=== PATIENT | female | born 1970 | race Caucasian/White ===

== ENCOUNTER 2023-12-28 14:06 | Outpatient (POV) | payer MEDICAID, SELFPAY ==
--- NOTE | 2023-12-28 14:36 | EXP.PAIN.OV ---
HPI Data of Consult Patient: new to practice Consult date: 12/28/23 Requesting Physician: Kerri Gibson APRN Primary Care Provider: Luis Enrique Harman Consult Narrative Reason for consult: Chiari malformation history, facial pain, arm pain History of present illness: Ms. Low is a 53 year old female who presents today as a new patient. She is a referral from Luis Enrique Harman's office. Today she rates her pain a 10 out of 10. Patient does state that she had Chiari malformation and did end up having to have surgery back in 2016. She states that she has continued to have issues since including facial pain with numbness and numbness into her left arm primarily. She does state that she does also have pain into the right side as well that it is not as severe. Patient describes this as a constant sensation that interferes with her ability perform activities of daily living. Patient does state that it has significantly affected her balance and she now deals with vertigo. Patient does state that she has difficulty even holding her head up due to the severe pain. She states nothing seems to make it better and that the only time she feels some improvement is when she is able to lay her head down when she sleeps. Patient does state in the past that she was going to pain management where she was getting injections, some ablations and Botox and that this was helping. Patient states that she ended up missing too many visits and was discharged from this clinic. She states that she then went to the pain management there in [place] however he was only doing the Botox and that she ended up losing range of motion for several months and that it was hard to get into see that provider. Patient states that she is not interested in going back there. Patient does have a drug abuse history and is in a methadone clinic. Patient is taking Flexeril and gabapentin and states that it does okay. Patient is currently prescribed gabapentin 800 mg 4 times a day from an outside provider. Her Ghanshyam has been reviewed and is appropriate. CC: Kerri Gibson APRN [facility] Disclaimer: The information contained in this section may have been updated after the patient was seen, as this information can be updated by other users. Social History Smoking Status: Unknown if ever smoked alcohol intake: never current occupational status: other Travel in the last 8 weeks: None Review of Systems Review of Systems Review of systems:: pertinent systems reviewed and negative unless documented below Review of systems (narrative): Review of Systems: General: No recent weight changes, no fever, no sleep disturbances Respiratory: No cough, no shortness of air, no recurring pulmonary infections Cardiovascular/peripheral vascular: No chest pain, no palpitations, no edema, no shortness of breath Gastrointestinal: No new onset incontinence, normal bowel movements reported Genitourinary: No new onset incontinence Musculoskeletal: Facial pain/numbness, bilateral arm pain Psychiatric: [Normal mood/affect] Neurological: [Denies weakness in extremities], [denies balance issues] Meds Home Medications and Allergies New Prescriptions to Start Prescriptions: Allergies Allergy/AdvReac Type Severity Reaction Status Date / Time Nitrofurantoin Allergy Intermediate I-HIVES Uncoded 05/02/17 14:58 Objective Narrative: Physical Exam: General: Alert and oriented x3, no acute distress, pleasant and cooperative Lungs: Respirations even and unlabored, symmetrical chest expansion Eyes: PERRL Musculoskeletal: Flexion and extension of cervical [spine] somewhat guarded secondary to pain, [antalgic gait noted] Neurological: Speech clear, no gross sensory deficit Assessment and Plan *Assessment and plan (1) Chiari malformation: Status: Acute Category: Medical (2) Facial pain: Status: Acute Category: Medical Code(s): R51.9 - Headache, unspecified (3) Cervical radiculopathy: Status: Acute Category: Medical Code(s): M54.12 - Radiculopathy, cervical region Plan Patient is experiencing significant issues related to being born with Chiari malformation. Patient does have surgery with minimal changes. Patient did have limited range of motion of her cervical spine today. I did discuss with patient that I do believe that she would be a beneficial candidate of a spinal cord stimulator trial. Risk and benefits and educational handouts were given to the patient today and she would like to proceed forward with this plan of care. I will order the patient a psychological evaluation and if she is deemed an appropriate candidate we will proceed forward with the spinal cord stimulator trial at a later date. Patient has tried and failed conservative therapy including oral medications, heat and ice, topicals, prior physical therapy and continued at home stretching and exercise for longer than 6 weeks as well as injection therapy. Patient is on continuous O2 and cannot tolerate current physical therapy due to her comorbidities. Patient will be ordered a compounded cream and return to clinic in 1 month following her psychological evaluation. Patient has been instructed to contact the clinic with any concerns before the next appointment. Dr. Villanueva has reviewed this note and agrees with this plan of care. This note was dictated using voice recognition software and make contain errors or omissions. All injections are used with Lidocaine or Bupivacaine and Depo Medrol.
[2023-12-28 15:21] VITALS: BP 112/70; PULSE 80; RESP 18; O2SAT 98; BMI 25.7
== END 2023-12-28 23:59 | disposition home or self-care (01) ==
LOC: SC.PAIN 14:06
PROVIDERS: PCP Pediatrics; Visit Provider Nurse Practitioner Family
DX: R51.9 Headache, unspecified (principal); M54.12 Radiculopathy, cervical region; Q07.00 Arnold-Chiari syndrome without spina bifida or hydrocephalus; Z73.89 Other problems related to life management difficulty
CPT/HCPCS: 99202; G0463

== ENCOUNTER 2024-02-05 13:32 | Outpatient (POV) | payer MEDICAID, SELFPAY ==
[2024-02-05 13:48] VITALS: BP 118/77; PULSE 66; RESP 18; O2SAT 95; BMI 25.7
--- NOTE | 2024-02-05 14:01 | EXP.PAIN.SOA ---
[facility] Disclaimer: The information contained in this section may have been updated after the patient was seen, as this information can be updated by other users. Medical History (Updated 02/05/24 @ 14:05 by Kerri Gibson APRN) Spinal enthesopathy of cervical region Chiari malformation GERD (gastroesophageal reflux disease) COPD (chronic obstructive pulmonary disease) Pulmonary emphysema HTN (hypertension) Syringomyelia Spasmodic torticollis History of substance abuse Anxiety Depression HLD (hyperlipidemia) Surgical History (Updated 12/28/23 @ 15:38 by Maribeth Jara RN) H/O right knee surgery Hx of cholecystectomy Hx of colonoscopy Family History (Updated 12/28/23 @ 15:37 by Maribeth Jara RN) Other COPD (chronic obstructive pulmonary disease) Colon cancer Heart attack Hypertension Ovary cancer Social History (Updated 12/28/23 @ 15:39 by Maribeth Jara RN) Smoking Status: Current some day smoker alcohol intake: never current occupational status: unemployed Travel in the last 8 weeks: None PM Subjective & Objective Subjective Subjective:: Patient is a pleasant 53-year-old female who presents today for follow-up of psychological evaluation. Today she rates her pain a 7 out of 10. Patient denies any new trauma or injury. She states she continues to have the chronic issues from her neck into her upper extremities. Patient does have chronic pain related to Chiari malformation that did require surgery. Patient has tried and failed conservative treatment including continued at home stretching exercise for longer than 12 weeks. Patient does state today that she would like to proceed forward with the spinal cord stimulator trial. Patient is currently managed with Flexeril and gabapentin from an outside provider. Her Ghanshyam has been reviewed and is appropriate. Review of Systems: General: No recent weight changes, no fever, no sleep disturbances Respiratory: No cough, no shortness of air, no recurring pulmonary infections Cardiovascular/peripheral vascular: No chest pain, no palpitations, no edema, no shortness of breath Gastrointestinal: No new onset incontinence, normal bowel movements reported Genitourinary: No new onset incontinence Musculoskeletal: Neck pain, upper extremity pain Psychiatric: [Normal mood/affect] Neurological: [Denies weakness in extremities], [denies balance issues] Pain at rest (0-10 scale): 7 Objective Objective:: Physical Exam: General: Alert and oriented x3, no acute distress, pleasant and cooperative Lungs: Respirations even and unlabored, symmetrical chest expansion Eyes: PERRL Musculoskeletal: Flexion and extension of cervical [spine] somewhat guarded secondary to pain, [antalgic gait noted] Neurological: Speech clear, no gross sensory deficit Has patient had previous pain injection?: No Conservative treatment options previously tried: Home exercise plan Length of treatment: Longer than 12 weeks Meds Home Medications and Allergies Home Medications ?Medication ?Instructions ?Recorded ?Confirmed ?Type atorvastatin 20 mg tablet 20 mg PO HS Cholesterol 12/28/23 02/05/24 History cyclobenzaprine 10 mg tablet 10 mg PO TID Pain 12/28/23 02/05/24 History fluticasone propionate 110 2 puff inhalation BID Breathing 12/28/23 02/05/24 History mcg/actuation HFA aerosol inhaler Problems gabapentin 800 mg tablet 800 mg PO QID Pain 12/28/23 02/05/24 History hydrochlorothiazide 50 mg tablet 50 mg PO DAILY Fluid 12/28/23 02/05/24 History lansoprazole 30 mg capsule,delayed 30 mg PO DAILY . 12/28/23 02/05/24 History release loratadine 10 mg tablet 10 mg PO DAILY ALLERGIES 12/28/23 02/05/24 History methadone 5 mg tablet 5 mg PO DAILY 12/28/23 02/05/24 History sertraline 50 mg tablet 50 mg PO DAILY MOOD 12/28/23 02/05/24 History tiotropium 2.5 mcg-olodaterol 2.5 1 inh inhalation DIRECTED 12/28/23 02/05/24 History mcg/actuation mist for inhalation Breathing Problems (Stiolto Respimat) New Prescriptions to Start Prescriptions: Allergies Allergy/AdvReac Type Severity Reaction Status Date / Time Nitrofurantoin Allergy Intermediate I-HIVES Uncoded 05/02/17 14:58 Assessment and Plan *Assessment and plan (1) Cervical radiculopathy: Status: Acute Category: Medical Code(s): M54.12 - Radiculopathy, cervical region (2) Chiari malformation: Status: Acute Category: Medical (3) Degenerative disc disease, cervical: Status: Acute Category: Medical Code(s): M50.30 - Other cervical disc degeneration, unspecified cervical region Plan Patient was reviewed over her psychological evaluation findings and was deemed an appropriate candidate for the spinal cord stimulator. I did review over the risk and benefits of the trial and she would like to proceed forward with this plan of care. Patient has tried and failed conservative therapy including continued at home stretching exercises for longer than 12 weeks. Patient will be submitted for spinal cord stimulator trial. Patient is not on any blood thinners. Patient has had to have surgery related to her Chiari malformation in the past and still has chronic pain related to this. Patient has been instructed to contact the clinic with any concerns before the next appointment. Dr. Villanueva has reviewed this note and agrees with this plan of care. This note was dictated using voice recognition software and make contain errors or omissions. All injections are used with Lidocaine or Bupivacaine and Depo Medrol.
== END 2024-02-05 23:59 | disposition home or self-care (01) ==
LOC: SC.PAIN 13:34
PROVIDERS: PCP Pediatrics; Visit Provider Nurse Practitioner Family
DX: M50.10 Cervical disc disorder with radiculopathy, unspecified cervical region (principal); Q07.00 Arnold-Chiari syndrome without spina bifida or hydrocephalus
CPT/HCPCS: 99212; G0463

== ENCOUNTER 2024-04-19 12:08 | Outpatient (CLI) | payer MEDICAID, SELFPAY ==
--- NOTE | 2024-04-19 12:40 | ECG_ITS ---
APPROVED REPORT Exam: Resting ECG HR:61 bpm ECG Measurements Heart Rate 61 AXES MD 152 P 36 QRSd 104 QRS 91 QT 431 T 50 QTc 434 Conclusion SINUS RHYTHM BORDERLINE RIGHT AXIS DEVIATION [QRS AXIS > 90] BORDERLINE ECG UNCONFIRMED REPORT Electronically signed by : Zay Bang MD 04/19/2024 19:29:41
[2024-04-19 12:45] VITALS: BMI 24.3
[2024-04-19 13:04] LABS: Chloride 101 mmol/L (98-107); Potassium 3.1 mmoL/L (3.5-5.1); Sodium 140 mmol/L (136-145)
[2024-04-19 13:07] LABS: Anion Gap 7.1 mEq/L (5-15); Blood Urea Nitrogen 12 mg/dl (7-17); Calcium 9.4 mg/dl (8.4-10.2); Carbon Dioxide 35 mmol/L (22.0-30.0); Creatinine Clearance Estimated 84 mL/min (50-200); Estimated Glomerular Filt Rate 75 ml/min (>60); GFR (African American) 91 ML/MIN (>60); Glucose 78 mg/dl (74-100)
[2024-04-19 13:10] LABS: Basophils # 0.1 K/mm3 (0-0.2); Basophils % 1.4 % (0.1-2.0); Eosinophils # 0.1 K/mm3 (0.0-0.4); Eosinophils % 1.4 % (0.1-12.0); Hematocrit 42.9 % (37.0-47.0); Hemoglobin 13.8 g/dL (12.2-16.2); Lymphocytes # 1.9 K/mm3 (0.7-4.5); Lymphocytes % 35.7 % (10-50); Mean Corpuscular HGB Conc 32.2 g/dL (31.8-35.4); Mean Corpuscular Hemoglobin 27.9 pg (27.0-31.2); Mean Corpuscular Volume 86.6 fl (81-99); Mean Platelet Volume 9.2 fl (7.4-10.4); Monocytes # 0.3 K/mm3 (0.1-1.0); Monocytes % 5.9 % (1.7-9.3); Neutrophils # 2.9 K/mm3 (1.8-7.8); Neutrophils % 55.6 % (37.0-80.0); Platelet Count 149 K/mm3 (142-424); Red Blood Count 4.95 M/mm3 (4.20-5.40); Red Cell Distribution Width 15.9 % (11.5-17.5); White Blood Count 5.3 K/mm3 (4.8-10.8)
== END 2024-04-19 23:59 | disposition home or self-care (01) ==
LOC: PREOP 12:09
PROVIDERS: PCP Pediatrics; Visit Provider Anesthesiology
DX: R94.31 Abnormal electrocardiogram [ECG] [EKG] (principal)
CPT/HCPCS: 80048; 85025; 93005

== ENCOUNTER 2024-04-26 07:39 | Day surgery (SDC) | payer MEDICAID, SELFPAY ==
[2024-04-19 12:24] VITALS: BMI 24.3
[2024-04-26 07:57] VITALS: BP 128/74; PULSE 57; RESP 18; TEMP 36.2; O2SAT 93
--- NOTE | 2024-04-26 08:04 | EXP.ANES.CKL ---
[facility] Disclaimer: The information contained in this section may have been updated after the patient was seen, as this information can be updated by other users. Medical History Spinal enthesopathy of cervical region Chiari malformation GERD (gastroesophageal reflux disease) COPD (chronic obstructive pulmonary disease) Pulmonary emphysema HTN (hypertension) Syringomyelia Spasmodic torticollis History of substance abuse Anxiety Depression HLD (hyperlipidemia) Surgical History History of neck surgery H/O right knee surgery Hx of cholecystectomy Hx of colonoscopy Family History Other COPD (chronic obstructive pulmonary disease) Colon cancer Heart attack Hypertension Ovary cancer Social History Smoking Status: Current some day smoker alcohol intake: former substance use type: former substance user current occupational status: unemployed Travel in the last 8 weeks: None [facility] Anesthesia Checklist Patient Identification Patient Identification: Arm Band and Verbal (Name & ) Structural Data Admitted From: Home Planned Operative Procedure/s: SC trial stimulator Consent for Planned Operative Procedure(s) Verified: Yes Verified Documents: Surgical Consent and History and Physical NPO Status Verified Time NPO: 18:00 Chart Verification Results Verified: CBC, BMP and ECG Additional verifications Patient : No Anesthesia Reactions: No Previous Colonoscopy: Yes Cardiovascular Assessment Heart Sounds: S1 & S2 Pulse Rhythm: Irregular Peripheral Edema: No Airway Assessment Mallampati Score:: Class II C-Spine Mobility Assessed: Yes (+pain. Limited ROM.) TMJ Mobility Assessed: Yes Dentition: Dentures-good fit (Nothing loose per pt.) Neurological Assessment Level of Consciousness: Awake, Alert, Appropriate and Follows Commands Hx Seizures: No Numbness or tingling in extremities: Yes (Neck/back) Anesthesia Plan Anesthesia Risk discussed: Yes Anesthesia Plan: Verified ASA Class: III Anesthesia Type: MAC
[2024-04-26] MEDS: LACTATED RINGERS 1000ML 1,000 ML 25 ML IV (08:06)
[2024-04-26] MEDS: VANCOMYCIN/WATER FOR INJ (PEG) 1.25 GM/250 ML PIGGYBACK IV (08:10)
[2024-04-26 08:13] LABS: Basophils # 0.1 K/mm3 (0-0.2); Basophils % 1.3 % (0.1-2.0); Eosinophils # 0.1 K/mm3 (0.0-0.4); Eosinophils % 1.4 % (0.1-12.0); Hematocrit 43.9 % (37.0-47.0); Hemoglobin 14.3 g/dL (12.2-16.2); Lymphocytes # 1.8 K/mm3 (0.7-4.5); Lymphocytes % 31.6 % (10-50); Mean Corpuscular HGB Conc 32.5 g/dL (31.8-35.4); Mean Corpuscular Hemoglobin 27.4 pg (27.0-31.2); Mean Corpuscular Volume 84.3 fl (81-99); Mean Platelet Volume 8.7 fl (7.4-10.4); Monocytes # 0.4 K/mm3 (0.1-1.0); Monocytes % 6.2 % (1.7-9.3); Neutrophils # 3.4 K/mm3 (1.8-7.8); Neutrophils % 59.5 % (37.0-80.0); Platelet Count 172 K/mm3 (142-424); Red Blood Count 5.21 M/mm3 (4.20-5.40); Red Cell Distribution Width 15.5 % (11.5-17.5); White Blood Count 5.8 K/mm3 (4.8-10.8)
[2024-04-26 08:17] LABS: Chloride 99 mmol/L (98-107); Potassium 3.1 mmoL/L (3.5-5.1); Sodium 139 mmol/L (136-145)
[2024-04-26 08:20] LABS: Anion Gap 7.1 mEq/L (5-15); Blood Urea Nitrogen 13 mg/dl (7-17); Calcium 9.5 mg/dl (8.4-10.2); Carbon Dioxide 36 mmol/L (22.0-30.0); Creatinine Clearance Estimated 96 mL/min (50-200); Estimated Glomerular Filt Rate 88 ml/min (>60); GFR (African American) 106 ML/MIN (>60); Glucose 91 mg/dl (74-100)
[2024-04-26] MEDS: LIDOCAINE 1% W/EPI 1:100,000 20ML VIAL 40 ML (10:34)
[2024-04-26 10:52] VITALS: BP 144/68; PULSE 71; RESP 18; TEMP 36.5; O2SAT 94
--- NOTE | 2024-04-26 10:54 | P.OP_ITS ---
Date of procedure: 04/26/24 Pre-op Diagnosis:: Degenerative disc disease of the cervical spine with cervical radicular symptoms. And increasing neck pain with cervical radicular symptoms after her Chiari malformation surgery Post-op Diagnosis:: Same Procedure performed:: Spinal cord stimulator trial with epidural lead placement x 2 Surgeon:: Hemant Villanueva MD SENIOR [employer]ITAL MARKETS SPECIALIST:: Stephanielexi Layne Anesthesia: MAC Estimated blood loss (mL): 2 Clinical Note:: This patient is a pleasant 53-year-old white female who we have been treating for degenerative disease of cervical spine with cervical radiculopathy symptoms as well as pain after her Chiari malformation surgery. She may have a syringomyelia causing increased pain. She has had a successful psychological evaluation. She presents for spinal cord stimulation trial today. She has failed all previous conservative treatments including injections, oral medications, physical therapy and she is not a candidate for any further surgery. Operative findings:: None Operative note:: Informed consent was obtained risk and benefits of the procedure were explained to the patient. The patient was taken to the operating room placed prone on the procedure table. She was prepped and draped in sterile fashion. C-arm fluoroscopy was used to view the lumbar spine. The skin and subcutaneous tissues were anesthetized using lidocaine. A 17-gauge epidural needle was inserted and advanced into the L1-L2 interspace. After confirmation of needle placement in the epidural space a stimulating lead was inserted and advanced very easily to the C3-C4-C5 vertebral bodies. We were unable to advance any further. A second needle was inserted and advanced again into the L1-L2 interspace. Again after confirmation of needle placement in the epidural space a second stimulator lead was inserted and advanced very easily to the C3-C4-C5 vertebral bodies. Again we were unable to advance any further. The lead was in good position. One of the lead was left 1-lead was midline both were posterior. The stylette's and needles were removed. The leads were secured in place. The patient underwent programmed by the [employer] digital sales representative. There was good stimulation in all areas of pain. She was placed on a fast programming. This was done in recovery. Patient was discharged home neurologic intact with good relief of pain symptoms. Plan and disposition: We will follow-up with this patient in 1 week for lead pull. Will evaluate efficacy of the spinal cord stimulator trial at that time Condition: stable Disposition: PACU Complications:: None
[2024-04-26 11:12] VITALS: BP 148/70; PULSE 70; RESP 18; O2SAT 94
[2024-04-26 11:22] VITALS: BP 134/70; PULSE 69; RESP 18; O2SAT 94
[2024-04-26] MEDS: ACETAMINOPHEN 325MG TAB 650 MG PO (11:33)
[2024-04-26 11:40] VITALS: BP 119/51; PULSE 70; RESP 18; O2SAT 92
== END 2024-04-26 12:03 | disposition home or self-care (01) ==
PROVIDERS: PCP Pediatrics; Visit Provider Anesthesiology
PROC: (CPT 62350; principal; 2024-04-26 08:30)
DX: M50.10 Cervical disc disorder with radiculopathy, unspecified cervical region (principal)
CPT/HCPCS: 62350 ×2; 80048; 85025; 96374; C1778; J1100; J2250; J2405; J3010; J3372; J7120; S0028

== ENCOUNTER 2024-05-03 15:17 | Outpatient (POV) | payer MEDICAID, SELFPAY ==
[2024-05-03 15:36] VITALS: BP 122/69; PULSE 63; RESP 14; O2SAT 95; BMI 24.0
--- NOTE | 2024-05-03 15:44 | A.OFFVIS_ITS ---
[facility] Disclaimer: The information contained in this section may have been updated after the patient was seen, as this information can be updated by other users. Medical History Spinal enthesopathy of cervical region Chiari malformation GERD (gastroesophageal reflux disease) COPD (chronic obstructive pulmonary disease) Pulmonary emphysema HTN (hypertension) Syringomyelia Spasmodic torticollis History of substance abuse Anxiety Depression HLD (hyperlipidemia) Surgical History History of neck surgery H/O right knee surgery Hx of cholecystectomy Hx of colonoscopy Family History Other COPD (chronic obstructive pulmonary disease) Colon cancer Heart attack Hypertension Ovary cancer Social History (Updated 04/26/24 @ 08:06 by Stephanie Layne CRNA) Smoking Status: Current some day smoker alcohol intake: former substance use type: former substance user current occupational status: other Travel in the last 8 weeks: None Have you lived/traveled outside US in past 30 days?: No Contact w/someone who lives/traveled outside US past 30 days?: No Exposure to someone with infectious disease in past 14 days?: No Do you have a fever (greater than 100.4 F or 38 C)?: No Have you tested positive for COVID-19: No Exposed to someone with COVID-19 in past 14 days?: No Do you have a sore throat?: No Do you have a cough?: No Do you have any weakness?: No Do you have any diarrhea?: No Are you experiencing any unusual bleeding?: No Do you have any muscle aches/pain?: No Do you have any abdominal pain?: No Are you experiencing loss of taste or smell?: No PM Subjective & Objective Subjective Subjective:: Patient presents today as a pleasant 53-year-old female who is following up from her spinal cord stimulator trial with lead removal. Today she rates her pain at 3 out of 10. She states she has had at least 75% improvement following this procedure. She states that she has not felt this great in years and that she has better overall movement and posture. She states that she is able to do so much more and does want to proceed forward with the implant. Patient has tried and failed conservative therapy including oral medications, heat and ice, topicals, physical therapy and continued at home stretching exercise for longer than 12 weeks. Patient did also undergo prior Chiari malformation surgery. Her Ghanshyam has been reviewed and is appropriate. Review of Systems: General: No recent weight changes, no fever, no sleep disturbances Respiratory: No cough, no shortness of air, no recurring pulmonary infections Cardiovascular/peripheral vascular: No chest pain, no palpitations, no edema, no shortness of breath Gastrointestinal: No new onset incontinence, normal bowel movements reported Genitourinary: No new onset incontinence Musculoskeletal: Neck pain, bilateral arm pain Psychiatric: [Normal mood/affect] Neurological: [Denies weakness in extremities], [denies balance issues] Pain at rest (0-10 scale): 3 Objective Objective:: Physical Exam: General: Alert and oriented x3, no acute distress, pleasant and cooperative Lungs: Respirations even and unlabored, symmetrical chest expansion Eyes: PERRL Musculoskeletal: Flexion and extension of cervical [spine] somewhat guarded secondary to pain, [antalgic gait noted] positive Spurling's test Neurological: Speech clear, no gross sensory deficit Has patient had previous pain injection?: No Conservative treatment options previously tried: Home exercise plan Length of treatment: Longer than 12 weeks Meds Home Medications and Allergies Home Medications ?Medication ?Instructions ?Recorded ?Confirmed ?Type cyclobenzaprine 10 mg tablet 10 mg PO TID Pain 12/28/23 05/03/24 History fluticasone propionate 110 2 puff inhalation BID Breathing 12/28/23 05/03/24 History mcg/actuation HFA aerosol inhaler Problems gabapentin 800 mg tablet 800 mg PO QID Pain 12/28/23 05/03/24 History hydrochlorothiazide 50 mg tablet 50 mg PO DAILY Fluid 12/28/23 05/03/24 History lansoprazole 30 mg capsule,delayed 30 mg PO DAILY . 12/28/23 05/03/24 History release loratadine 10 mg tablet 10 mg PO DAILY ALLERGIES 12/28/23 05/03/24 History methadone 5 mg tablet 5 mg PO DAILY 12/28/23 05/03/24 History sertraline 50 mg tablet 50 mg PO DAILY MOOD 12/28/23 05/03/24 History tiotropium 2.5 mcg-olodaterol 2.5 1 inh inhalation DIRECTED 12/28/23 05/03/24 History mcg/actuation mist for inhalation Breathing Problems (Stiolto Respimat) New Prescriptions to Start Prescriptions: Allergies Allergy/AdvReac Type Severity Reaction Status Date / Time Nitrofurantoin Allergy Intermediate I-HIVES Uncoded 05/02/17 14:58 Assessment and Plan *Assessment and plan (1) Degenerative disc disease, cervical: Status: Acute Category: Medical Code(s): M50.30 - Other cervical disc degeneration, unspecified cervical region (2) Cervical radiculopathy: Status: Acute Category: Medical Code(s): M54.12 - Radiculopathy, cervical region (3) Facial pain: Status: Acute Category: Medical Code(s): R51.9 - Headache, unspecified (4) Chiari malformation: Status: Acute Category: Medical Plan Patient has had significant improvement with her spinal cord stimulator trial with 75% relief. She did have improved function with better posture and was able to move more with decreased pain. Patient had previously tried and failed conservative therapy including oral medication, heat and ice, topicals, physical therapy, at home stretching exercise for longer than 12 weeks as well as prior surgery. Patient will be submitted for spinal cord stimulator implants under fluoroscopy. Patient has been instructed to contact the clinic with any concerns before the next appointment. Dr. Villanueva has reviewed this note and agrees with this plan of care. This note was dictated using voice recognition software and make contain errors or omissions. All injections are used with Lidocaine, Bupivacaine and Depo Medrol. Occasionally urine drug screen is needed to verify patient's compliance with our office pain contract. This is ordered based off specific treatments related to chronic pain with the potential to abuse certain medications.
== END 2024-05-03 23:59 | disposition home or self-care (01) ==
LOC: SC.PAIN 15:18
PROVIDERS: PCP Pediatrics; Visit Provider Nurse Practitioner Family
DX: M50.10 Cervical disc disorder with radiculopathy, unspecified cervical region (principal); R51.9 Headache, unspecified; Q07.00 Arnold-Chiari syndrome without spina bifida or hydrocephalus; F17.210 Nicotine dependence, cigarettes, uncomplicated
CPT/HCPCS: 99212; G0463

== ENCOUNTER 2024-07-02 13:55 | Outpatient (CLI) | payer MEDICAID, SELFPAY ==
--- NOTE | 2024-07-02 14:22 | ECG_ITS ---
APPROVED REPORT Exam: Resting ECG HR:61 bpm ECG Measurements Heart Rate 61 AXES WY 163 P 64 QRSd 110 QRS 106 QT 437 T 70 QTc 440 Conclusion SINUS RHYTHM RIGHT AXIS DEVIATION [QRS AXIS > 100] NONSPECIFIC T-WAVE ABNORMALITY ABNORMAL ECG UNCONFIRMED REPORT Electronically signed by : Zay Bang MD 07/03/2024 17:24:18
[2024-07-02 14:24] VITALS: BMI 23.1
[2024-07-02 14:31] LABS: Basophils % 0.6 % (0.1-2.0); Eosinophils # 0.1 K/mm3 (0.0-0.4); Eosinophils % 1.1 % (0.1-12.0); Hematocrit 40.2 % (37.0-47.0); Hemoglobin 13.2 g/dL (12.2-16.2); Lymphocytes % 36.2 % (10-50); Mean Corpuscular HGB Conc 32.8 g/dL (31.8-35.4); Mean Corpuscular Volume 85.2 fl (81-99); Mean Platelet Volume 11.6 fl (7.4-10.4); Monocytes # 0.3 K/mm3 (0.1-1.0); Monocytes % 5.8 % (1.7-9.3); Neutrophils % 56.1 % (37.0-80.0); Platelet Count 145 K/mm3 (142-424); Red Blood Count 4.72 M/mm3 (4.20-5.40); White Blood Count 5.4 K/mm3 (4.8-10.8)
[2024-07-02 14:45] LABS: Chloride 98 mmol/L (98-107); Sodium 139 mmol/L (136-145)
[2024-07-02 14:48] LABS: Anion Gap 5.7 mEq/L (5-15); Blood Urea Nitrogen 14 mg/dl (7-17); Carbon Dioxide 38 mmol/L (22.0-30.0); Creatinine Clearance Estimated 90 mL/min (50-200); Estimated Glomerular Filt Rate 88 ml/min (>60); GFR (African American) 106 ML/MIN (>60); Glucose 103 mg/dl (74-100)
[2024-07-02 15:00] LABS: Potassium 2.7 mmoL/L (3.5-5.1)
--- NOTE | 2024-07-02 15:39 | PC.NURSE ---
Received notification pt's potassium 2.7. Spoke w/ [employer] who conveyed results to Dr Villanueva. Spoke w/ pt while awaiting further instructions. She states she was placeed on PO potassuim and stopped taking last week on her own due to GI upset. Determined per Dr Villanueva.pt to follow up with her PMD for treatment (Dr. Harman) then repeat K+ DOS. Call placed to Dr. Harman's office notifying of situation. Appointment scheduled for tomorrow (07/03) @11am. Pt called and notified. Instructed to restart PO potassium, and to follow up as scheduled, sooner if any cardiac symptoms develop.
== END 2024-07-02 23:59 | disposition home or self-care (01) ==
LOC: PREOP 13:56
PROVIDERS: Nurse Anesthetist, Certified Registered; PCP Pediatrics; Visit Provider Anesthesiology
DX: Z01.810 Encounter for preprocedural cardiovascular examination (principal); R94.31 Abnormal electrocardiogram [ECG] [EKG]
CPT/HCPCS: 80048; 85025; 93005

== ENCOUNTER 2024-07-05 09:03 | Day surgery (SDC) | payer MEDICAID, SELFPAY ==
[2024-07-03 09:35] VITALS: BMI 23.1
[2024-07-05 09:24] VITALS: BP 140/59; PULSE 56; RESP 17; TEMP 36.7; O2SAT 96
[2024-07-05] MEDS: LACTATED RINGERS 1000ML 1,000 ML 25 ML IV (09:34)
[2024-07-05 09:39] LABS: Chloride 102 mmol/L (98-107); Potassium 3.6 mmoL/L (3.5-5.1); Sodium 139 mmol/L (136-145)
[2024-07-05 09:42] LABS: Anion Gap 7.6 mEq/L (5-15); Blood Urea Nitrogen 12 mg/dl (7-17); Carbon Dioxide 33 mmol/L (22.0-30.0); Creatinine Clearance Estimated 90 mL/min (50-200); Estimated Glomerular Filt Rate 88 ml/min (>60); GFR (African American) 106 ML/MIN (>60)
[2024-07-05 09:43] LABS: Calcium 9.3 mg/dl (8.4-10.2); Glucose 98 mg/dl (74-100)
--- NOTE | 2024-07-05 10:46 | EXP.ANES.CKL ---
[facility] Disclaimer: The information contained in this section may have been updated after the patient was seen, as this information can be updated by other users. Medical History Spinal enthesopathy of cervical region Chiari malformation GERD (gastroesophageal reflux disease) COPD (chronic obstructive pulmonary disease) Pulmonary emphysema HTN (hypertension) Syringomyelia Spasmodic torticollis History of substance abuse Anxiety Depression HLD (hyperlipidemia) Surgical History History of lithotripsy History of neck surgery H/O right knee surgery Hx of cholecystectomy Hx of colonoscopy Family History Other COPD (chronic obstructive pulmonary disease) Colon cancer Heart attack Hypertension Ovary cancer Social History Smoking Status: Current some day smoker alcohol intake: former substance use type: former substance user current occupational status: employed Travel in the last 8 weeks: None Have you lived/traveled outside US in past 30 days?: No Contact w/someone who lives/traveled outside US past 30 days?: No Exposure to someone with infectious disease in past 14 days?: No Do you have a fever (greater than 100.4 F or 38 C)?: No Have you tested positive for COVID-19: No Exposed to someone with COVID-19 in past 14 days?: No Do you have a sore throat?: No Do you have a cough?: No Do you have any weakness?: No Do you have any diarrhea?: No Are you experiencing any unusual bleeding?: No Do you have any muscle aches/pain?: No Do you have any abdominal pain?: No Are you experiencing loss of taste or smell?: No [facility] Anesthesia Checklist Patient Identification Patient Identification: Arm Band Structural Data Admitted From: Home Planned Operative Procedure/s: Neurostimulator Placement under Fluoroscopy Consent for Planned Operative Procedure(s) Verified: Yes Verified Documents: Surgical Consent and History and Physical Additional verifications Anesthesia Reactions: No Hx Blood Transfusions: No Blood Transfusion Reaction: No Airway Assessment Mallampati Score:: Class II C-Spine Mobility Assessed: Yes TMJ Mobility Assessed: Yes Dentition: Good Dentition Neurological Assessment Level of Consciousness: Awake, Alert and Appropriate Anesthesia Plan Anesthesia Risk discussed: Yes Anesthesia Plan: Verified ASA Class: III Anesthesia Type: MAC
[2024-07-05] MEDS: VANCOMYCIN/WATER FOR INJ (PEG) 1.25 GM/250 ML PIGGYBACK IV ×2 (11:00→12:20)
[2024-07-05] MEDS: SODIUM CHLORIDE 0.9% 20ML VIAL 40 ML IV (12:41)
[2024-07-05] MEDS: GENTAMICIN 80 MG/2 ML VIAL (12:41)
[2024-07-05] MEDS: LIDOCAINE 1% W/EPI 1:100,000 20ML VIAL 40 ML (12:41)
--- NOTE | 2024-07-05 13:42 | P.OP_ITS ---
Date of procedure: 07/05/24 Pre-op Diagnosis:: Degenerative disc disease of the cervical spine with cervical radiculopathy symptoms Post-op Diagnosis:: Same Procedure performed:: Permanent placement spinal cord stimulator with epidural lead placement x 2 and spinal cord stimulator generator placed Surgeon:: Hemant Villanueva MD PRINT PRODUCTION COORDINATOR:: Neil Evangelista Anesthesia: MAC Estimated blood loss (mL): 5 Clinical Note:: This patient is a pleasant 54-year-old white female with degenerative disease of the cervical spine with cervical radiculopathy symptoms and Chiari malformation. Patient has failed all previous conservative treatments including injections, oral medications, physical therapy and she is not a candidate for further surgery. She has had a successful psychological evaluation and a successful spinal cord stimulator trial. She presents for permanent placement of her spinal cord stimulator today. Operative findings:: None Operative note:: Informed consent was obtained risk and benefits of the procedure were explained to the patient. The patient was taken to the operating room placed prone on the procedure table. She was prepped and draped in sterile fashion. C-arm fluoroscopy was used to view the lumbar spine. The skin and subtenons tissues adjacent to the L1-L2 interspace were anesthetized using lidocaine. I made incision adjacent to the L1-L2 interspace and dissected down to the lumbar paraspinous fascia. A 17-gauge epidural needle was inserted and advanced into the L1-L2 interspace. After confirming placement in the epidural space a stimulating lead was inserted and advanced to the C3-C4-C5 vertebral body. This was done with the help of a percutaneous lead introducer kit. A second needle was inserted and advanced again into the L1-L2 interspace. Again after confirmation of needle placement in the epidural space. A second lead was inserted and advanced again to the C3-C4-C5 vertebral body. This was again done with the help of a percutaneous lead introducer kit. The leads were found to be in good position. They were the right and left of midline and posterior. The stylette's of the leads and the needles were removed. The leads were secured to the fascia with an anchoring device and 2-0 Prolene. The generator pocket was created on the right flank. I tunneled the leads from the back to the generator pocket attached to leads to the generator. Impedances were checked and found to be okay. Both incisions were then irrigated with antibiotic solution and then closed with 2-0 Vicryl followed by 4-0 nylon and shreyas. The patient tolerated procedure well with no complications. Patient was programmed by the [employer] traffic workforce representative with good stimulation in all areas of pain. Patient was discharged home neurologic intact with good relief of pain symptoms. Plan and disposition: Follow-up with this patient in 1 week for wound check and reprogram and will follow-up in 2 to 3 weeks for suture and staple removal. Condition: stable Disposition: PACU Complications:: None
[2024-07-05 13:45] VITALS: BP 146/89; PULSE 58; RESP 15; TEMP 36.1; O2SAT 98
[2024-07-05 13:58] VITALS: BP 144/72; PULSE 56; RESP 16; O2SAT 97
[2024-07-05 14:08] VITALS: BP 141/75; PULSE 56; RESP 16; O2SAT 98
[2024-07-05 14:13] VITALS: BP 139/70; PULSE 60; RESP 16; O2SAT 98
== END 2024-07-05 14:18 | disposition home or self-care (01) ==
PROVIDERS: PCP Pediatrics; Visit Provider Anesthesiology
PROC: (CPT 63685; principal; 2024-07-05 10:30)
DX: M50.10 Cervical disc disorder with radiculopathy, unspecified cervical region (principal)
CPT/HCPCS: 63650 ×2; 63685; 80048; 96374; C1778; C1820; J1580; J2704; J3372; J7120

== ENCOUNTER 2024-07-12 13:03 | Outpatient (POV) | payer MEDICAID, SELFPAY ==
--- NOTE | 2024-07-12 13:11 | EXP.PAIN.SOA ---
[facility] Disclaimer: The information contained in this section may have been updated after the patient was seen, as this information can be updated by other users. Medical History Spinal enthesopathy of cervical region Chiari malformation GERD (gastroesophageal reflux disease) COPD (chronic obstructive pulmonary disease) Pulmonary emphysema HTN (hypertension) Syringomyelia Spasmodic torticollis History of substance abuse Anxiety Depression HLD (hyperlipidemia) Surgical History History of lithotripsy History of neck surgery H/O right knee surgery Hx of cholecystectomy Hx of colonoscopy Family History Other COPD (chronic obstructive pulmonary disease) Colon cancer Heart attack Hypertension Ovary cancer Social History Smoking Status: Current some day smoker alcohol intake: former substance use type: former substance user current occupational status: employed Travel in the last 8 weeks: None Have you lived/traveled outside US in past 30 days?: No Contact w/someone who lives/traveled outside US past 30 days?: No Exposure to someone with infectious disease in past 14 days?: No Do you have a fever (greater than 100.4 F or 38 C)?: No Have you tested positive for COVID-19: No Exposed to someone with COVID-19 in past 14 days?: No Do you have a sore throat?: No Do you have a cough?: No Do you have any weakness?: No Do you have any diarrhea?: No Are you experiencing any unusual bleeding?: No Do you have any muscle aches/pain?: No Do you have any abdominal pain?: No Are you experiencing loss of taste or smell?: No PM Subjective & Objective Subjective Subjective:: Patient is a pleasant 54-year-old female who presents today for 1 week postop of spinal cord stimulator implant. Today she rates her pain a 6 out of 10. She denies any new trauma or injury. She does state that the day of the surgery she was a 10 out of 10 and so she is already noticed significant improvement. She did state that she had a little bit more soreness and pain the first day but it slowly decreased and really does think that this is made all the difference. Patient states that she did not finish all of her Bactrim because it made her more nauseous. Patient does have a [employer] spinal cord stimulator in place and was going to be scheduled for stimulator adjustment today however the retention representative was no longer available due to unforeseen circumstances. They have already reached out to reschedule. Patient states that the current stimulation is working well. Her Ghanshyam has been reviewed and is appropriate. Review of Systems: General: No recent weight changes, no fever, no sleep disturbances Respiratory: No cough, no shortness of air, no recurring pulmonary infections Cardiovascular/peripheral vascular: No chest pain, no palpitations, no edema, no shortness of breath Gastrointestinal: No new onset incontinence, normal bowel movements reported Genitourinary: No new onset incontinence Musculoskeletal: Neck pain Psychiatric: [Normal mood/affect] Neurological: [Denies weakness in extremities], [denies balance issues] Pain at rest (0-10 scale): 6 Objective Objective:: Physical Exam: General: Alert and oriented x3, no acute distress, pleasant and cooperative Lungs: Respirations even and unlabored, symmetrical chest expansion Eyes: PERRL Musculoskeletal: Flexion and extension of cervical [spine] somewhat guarded secondary to pain, [antalgic gait noted] Neurological: Speech clear, no gross sensory deficit Skin: Incision sites are clean, dry, well-approximated with sutures and shreyas intact Has patient had previous pain injection?: No Conservative treatment options previously tried: Home exercise plan Length of treatment: Longer than 12 weeks Meds Home Medications and Allergies Home Medications ?Medication ?Instructions ?Recorded ?Confirmed ?Type cyclobenzaprine 10 mg tablet 10 mg PO TID PRN Pain 12/28/23 07/05/24 History fluticasone propionate 110 2 puff inhalation BID Breathing 12/28/23 07/05/24 History mcg/actuation HFA aerosol inhaler Problems gabapentin 800 mg tablet 800 mg PO QID Pain 12/28/23 07/05/24 History hydrochlorothiazide 50 mg tablet 50 mg PO DAILY Fluid 12/28/23 07/05/24 History lansoprazole 30 mg capsule,delayed 30 mg PO DAILY . 12/28/23 07/05/24 History release loratadine 10 mg tablet 10 mg PO DAILY ALLERGIES 12/28/23 07/05/24 History methadone 5 mg tablet 5 mg PO DAILY 12/28/23 07/05/24 History sertraline 50 mg tablet 50 mg PO DAILY MOOD 12/28/23 07/05/24 History tiotropium 2.5 mcg-olodaterol 2.5 1 inh inhalation DIRECTED 12/28/23 07/05/24 History mcg/actuation mist for inhalation Breathing Problems (Stiolto Respimat) albuterol sulfate 1.25 mg/3 mL 1.25 mg inhalation QID PRN Asthma 07/02/24 07/05/24 History solution for nebulization potassium chloride 20 mEq 20 meq PO DAILY 07/02/24 07/05/24 History tablet,extended release(part/cryst) New Prescriptions to Start Prescriptions: Allergies Allergy/AdvReac Type Severity Reaction Status Date / Time Nitrofurantoin Allergy Intermediate I-HIVES Uncoded 07/02/24 14:03 Assessment and Plan *Assessment and plan (1) Degenerative disc disease, cervical: Status: Acute Category: Medical Code(s): M50.30 - Other cervical disc degeneration, unspecified cervical region (2) Cervical radiculopathy: Status: Acute Category: Medical Code(s): M54.12 - Radiculopathy, cervical region (3) Chiari malformation: Status: Acute Category: Medical Plan Patient was counseled to continue her postop restrictions the full 6 weeks including no submerging in water until her incisions are fully healed, minimal bending, twisting or lifting, and to continue to wear her abdominal binder to prevent seroma formation. Patient was also advised to watch for any signs of infection and to call us immediately if something were to come up. Patient will return to clinic in 2 weeks for suture and staple removal. Patient agrees with this plan of care. We will make sure that [facility] has her next follow-up appointment. Patient has been instructed to contact the clinic with any concerns before the next appointment. Dr. Villanueva has reviewed this note and agrees with this plan of care. This note was dictated using voice recognition software and make contain errors or omissions. All injections are used with Lidocaine, Bupivacaine and Depo Medrol. Occasionally urine drug screen is needed to verify patient's compliance with our office pain contract. This is ordered based off specific treatments related to chronic pain with the potential to abuse certain medications.
[2024-07-12 13:20] VITALS: BP 119/64; PULSE 66; RESP 18; TEMP 36.6; O2SAT 95; BMI 23.1
== END 2024-07-12 23:59 | disposition home or self-care (01) ==
LOC: SC.PAIN 13:03
PROVIDERS: PCP Pediatrics; Visit Provider Nurse Practitioner Family
DX: M50.10 Cervical disc disorder with radiculopathy, unspecified cervical region (principal); F17.200 Nicotine dependence, unspecified, uncomplicated; Q07.00 Arnold-Chiari syndrome without spina bifida or hydrocephalus
CPT/HCPCS: 99212; G0463

== ENCOUNTER 2024-07-26 13:24 | Outpatient (POV) | payer MEDICAID, SELFPAY ==
[2024-07-26 13:37] VITALS: BP 109/61; PULSE 59; RESP 14; O2SAT 94; BMI 22.3
--- NOTE | 2024-07-26 13:40 | A.OFFVIS_ITS ---
[facility] Disclaimer: The information contained in this section may have been updated after the patient was seen, as this information can be updated by other users. Medical History Spinal enthesopathy of cervical region Chiari malformation GERD (gastroesophageal reflux disease) COPD (chronic obstructive pulmonary disease) Pulmonary emphysema HTN (hypertension) Syringomyelia Spasmodic torticollis History of substance abuse Anxiety Depression HLD (hyperlipidemia) Surgical History History of lithotripsy History of neck surgery H/O right knee surgery Hx of cholecystectomy Hx of colonoscopy Family History Other COPD (chronic obstructive pulmonary disease) Colon cancer Heart attack Hypertension Ovary cancer Social History Smoking Status: Current some day smoker alcohol intake: former substance use type: former substance user current occupational status: other Travel in the last 8 weeks: None PM Subjective & Objective Subjective Subjective:: Patient is a pleasant 54-year-old female who presents today for follow-up. She rates her pain today a 2 out of 10. She is 3 weeks postop of her spinal cord stimulator implant. Patient states that she is doing wonderful with this device and that it is working exceptionally well. She states that she feels like she holds her neck straighter following this device. Patient denies any side effects. She is hoping to get her sutures and shreyas out today. Her Ghanshyam has been reviewed and is appropriate. Review of Systems: General: No recent weight changes, no fever, no sleep disturbances Respiratory: No cough, no shortness of air, no recurring pulmonary infections Cardiovascular/peripheral vascular: No chest pain, no palpitations, no edema, no shortness of breath Gastrointestinal: No new onset incontinence, normal bowel movements reported Genitourinary: No new onset incontinence Musculoskeletal: Neck pain Psychiatric: [Normal mood/affect] Neurological: [Denies weakness in extremities], [denies balance issues] Pain at rest (0-10 scale): 2 Objective Objective:: Physical Exam: General: Alert and oriented x3, no acute distress, pleasant and cooperative Lungs: Respirations even and unlabored, symmetrical chest expansion Eyes: PERRL Musculoskeletal: Flexion and extension of cervical [spine] somewhat guarded secondary to pain, [antalgic gait noted] Neurological: Speech clear, no gross sensory deficit Has patient had previous pain injection?: No Conservative treatment options previously tried: Home exercise plan Length of treatment: Longer than 12 weeks Meds Home Medications and Allergies Home Medications ?Medication ?Instructions ?Recorded ?Confirmed ?Type cyclobenzaprine 10 mg tablet 10 mg PO TID PRN Pain 12/28/23 07/12/24 History fluticasone propionate 110 2 puff inhalation BID Breathing 12/28/23 07/12/24 History mcg/actuation HFA aerosol inhaler Problems gabapentin 800 mg tablet 800 mg PO QID Pain 12/28/23 07/12/24 History hydrochlorothiazide 50 mg tablet 50 mg PO DAILY Fluid 12/28/23 07/12/24 History lansoprazole 30 mg capsule,delayed 30 mg PO DAILY . 12/28/23 07/12/24 History release loratadine 10 mg tablet 10 mg PO DAILY ALLERGIES 12/28/23 07/12/24 History methadone 5 mg tablet 5 mg PO DAILY 12/28/23 07/12/24 History sertraline 50 mg tablet 50 mg PO DAILY MOOD 12/28/23 07/12/24 History tiotropium 2.5 mcg-olodaterol 2.5 1 inh inhalation DIRECTED 12/28/23 07/12/24 History mcg/actuation mist for inhalation Breathing Problems (Stiolto Respimat) albuterol sulfate 1.25 mg/3 mL 1.25 mg inhalation QID PRN Asthma 07/02/24 07/12/24 History solution for nebulization potassium chloride 20 mEq 20 meq PO DAILY 07/02/24 07/12/24 History tablet,extended release(part/cryst) New Prescriptions to Start Prescriptions: Allergies Allergy/AdvReac Type Severity Reaction Status Date / Time Nitrofurantoin Allergy Intermediate I-HIVES Uncoded 07/02/24 14:03 Assessment and Plan *Assessment and plan (1) Cervical radiculopathy: Status: Acute Category: Medical Code(s): M54.12 - Radiculopathy, cervical region (2) Degenerative disc disease, cervical: Status: Acute Category: Medical Code(s): M50.30 - Other cervical disc degeneration, unspecified cervical region Plan Patient is doing remarkably well following her spinal cord stimulator implant. I did review over with the patient that we are still on postop restrictions and to make sure that she does not submerge in any water until her incisions are fully healed, to be mindful of bending, twisting or lifting and to continue to use her abdominal binder as needed to prevent seroma formation. Patient was counseled between now and her next visit it if she feels like she needs additional reprogramming with her stimulator to let us know and that we can coordinate with [employer] to have her reprogrammed at her next follow- up. Patient agrees with this plan of care. We were able to remove her sutures and shreyas and applied skin glue and Steri-Strips. Patient will return to clinic in 1 month. Patient has been instructed to contact the clinic with any concerns before the next appointment. Dr. Villanueva has reviewed this note and agrees with this plan of care. This note was dictated using voice recognition software and make contain errors or omissions. All injections are used with Lidocaine, Bupivacaine and Depo Medrol. Occasionally urine drug screen is needed to verify patient's compliance with our office pain contract. This is ordered based off specific treatments related to chronic pain with the potential to abuse certain medications.
== END 2024-07-26 23:59 | disposition home or self-care (01) ==
LOC: SC.PAIN 13:26
PROVIDERS: PCP Pediatrics; Visit Provider Nurse Practitioner Family
DX: M50.10 Cervical disc disorder with radiculopathy, unspecified cervical region (principal); Z87.891 Personal history of nicotine dependence
CPT/HCPCS: 99212; 99213; G0463

== ENCOUNTER 2024-09-20 13:34 | Outpatient (POV) | payer MEDICAID, SELFPAY ==
--- OUTSIDE RECORDS SUMMARY | 2024-09-20 13:37 | XMS_ITS | Continuity of Care Document ---
Author Organization [place] - [place] - [place] & [place], [facility] Address [address] [place] [address] [place] [address] Care Team Providers Care Oracle Iam Consultant Name Role Phone LUIS ENRIQUE HARMAN Primary Care Provider Assessment Encounter Date Assessment Date Assessment LastModified by Organization Details LastModified Time 09/09/2024 09/09/2024 ASSESSMENT: - COPD exacerbation - Medication intolerance (cholesterol medications) - Low oxygen levels PLAN: - Prescribed a higher dose of steroids: 20 mg, three tablets for three days, two tablets for three days, one tablet for three days. - Advised to use the nebulizer every six hours for the next few days. - Recommended rescheduling the colonoscopy due to current illness. - Discussed trying a different cholesterol medication due to intolerance to atorvastatin and rosuvastatin. - Continued potassium supplementation once daily due to hydrochlorothiazide use. - Scheduled a follow-up appointment in three months. Please note this report was created using voice recognition/text compilation software with [employer] documentation services during the encounter with the patient; Please excuse any errors due to the unit nurse process. [email or web address] Not available 09/09/2024 11:59:41 Plan of Treatment Reminders Order Date Submit Date Provider Last Modified By Organization Details Last Modified Time Details Appointments SURGERY 15 2024 06:45A M Bijan Mccloud MD Not available Not available Not available OV EST 20 2024 04:10P M Luis Enrique Harman MD Not available Not available Not available Lab drug screen, 14 drugs (detectim ed), urine 2024 025 [place] [facility], [address], [address], [place], [address], 09/17/2024 16:25:46 influenza virus A + B + SARS-CoV- 2 (COVID19) Ag panel, rapid IA, upper respirato ry specimen [id number] [facility], [address] [facility], [place], [address], 09/09/2024 12:01:40 Referral None recorded. Procedures None recorded. Surgeries None recorded. Imaging None recorded. Medication Orders gabapenti n 800 mg tablet 2024 025 [facility], [address] [place] [address], [id number], 09/10/2024 09:27:23 prednison e 20 mg tablet 2024 025 [facility], [address] [place] [address], [id number], 09/09/2024 12:52:56 ezetimibe 10 mg tablet 2024 025 [facility], [address] [place] [address], [place], [address], 09/09/2024 12:52:56 Patient TargetsNo targets recorded. Patient InstructionsNo instructions recorded. Reason for Referral None Reported. Results Created Date Observation Date Name Description Value Unit Range Abnormal Flag Note LastModifiedBy Organization Detail LastModifiedTime 09/10/1909/09/2024 influ lamont virus A + B + SARS- CoV-2 (COVI D19) Ag panel , rapid IA, upper respi rator y speci men FLU A negati ve Not Available [facility] And [address], [place], [address], 09/09/2024 11:30:00 09/10/19 25 09/09/2024 influ lamont virus A + B + SARS- CoV-2 (COVI D19) Ag panel , rapid IA, upper respi rator y speci men FLU B negati ve Not Available [facility] [address] [facility] [address], [place], [address], 09/09/2024 11:30:00 09/10/19 25 09/09/2024 influ lamont virus A + B + SARS- CoV-2 (COVI D19) Ag panel , rapid IA, upper respi rator y speci men SARS COV + SARS OV 2 negati ve Not Available [facility] [address] [facility] [facility] [address], [place], [address], 09/09/2024 11:30:00 Result Notes None recorded. Problems Name Problem SNOMED Code Status Onset Date Resolution Date Notes Provider Name and Address Organization Details Recorded Time Opioid dependenc e in remission 913364095 Active Not Available [facility] 4 15:56:09 History of craniotom y 559820023 Active Not Available [facility] 4 15:56:09 Hypertens diamond disorder 74761865 Active Not Available [facility] 4 15:56:09 Spasm 01518390 Completed 10/25/2022 Luis Enrique Harman MD [address], [place], [address] , [facility] & [place] 3 11:47:04 Acute asthma 888548287 Completed 10/25/2022 Luis Enrique Harman MD [address] , [place], [address] , [facility] & [place] 3 11:47:04 Family history of cancer of colon 617369647 Active Not Available [facility] 4 15:56:09 Syringomy lisa 119124708 Active Not Available [facility] 4 15:56:09 Chronic obstructi ve pulmonary disease 86997847 Active Not Available [facility] 4 15:56:09 Moderate major depressio n 749499 Active Not Available [facility] 4 15:56:10 Neck pain 86937665 Active Not Available [facility] 4 15:56:10 Chronic pain 09195063 Active Not Available [facility] 4 15:56:10 Sinusitis 76747032 Completed 10/25/2022 Luis Enrique Harman MD [address], [place], [place], [address] [place] [address] & [place] 3 11:47:04 Nicotine user 249339712 Active Not Available [facility] 4 15:56:10 Compressi on of brain 61156269 Completed 10/25/2022 Luis Enrique Harman MD [address], [address] & [place] 3 11:47:04 Gastroeso phageal reflux disease 065396548 Active Not Available [facility] 4 15:56:09 Chiari malformat ion 553054745 Active Not Available [facility] 4 15:56:09 Hyperlipi demia 54715148 Active Not Available [facility] 4 15:56:10 Sclerosin g adenosis of right breast [id number] 580149 Completed 10/25/2022 Luis Enrique Harman MD [address], [place], [place], [address] [place] [address] & [place] 3 11:47:04 Generaliz ed anxiety disorder 10627788 Active Not Available [facility] 4 15:56:09 History of brain disorder 819986227 Completed 10/25/2022 Luis Enrique Harman MD [address] , [address] & [place] 3 11:47:04 Family history of malignant neoplasm of ovary 345104854 Active Not Available [facility] 4 15:56:10 Pneumonit is 157083584 Active Not Available [facility] 4 15:56:09 Acute hypoxemic respirato ry failure 909143583 Active Not Available [facility] 4 15:56:10 Pulmonary emphysema 92875343 Active 2022 Not Available [facility] 4 15:56:10 Dyspnea on exertion 78807643 Active 2022 Not Available [facility] 4 15:56:10 Tobacco dependenc e caused by cigarette s 34035972341 463503 Active 2022 Not Available [facility] 4 15:56:09 Anxiety 82271637 Active 2022 Not Available [facility] 4 15:56:10 Cervico-o ccipital neuralgia 76684946 Active 2023 Radha Vera null, [place] [facility] [place] [facility] [place] 4 15:10:59 Spasmodic torticoll is 20030331 Active 2023 Radha Vera [place] [facility] [place] [facility] [place] 4 15:11:00 Radicular pain 51344185 Active 2023 Radha Vera null, [place] [facility] [place] [facility] [place] 4 15:11:01 Myofascia l pain 890215052 Active 2023 Radha Vera null[place] [facility] [place] [facility] [place] 4 15:11:02 Post-lami nectomy syndrome 56352080 Active 2023 Radha Vera null[place] [facility] [place] [facility] [place] 4 15:11:03 Spinal enthesopa thy of cervical region Active 2023 Radha Vera null, [place] [facility] [place] & [place] 4 15:52:50 Problem Notes None recorded. Procedures Surgical History Date Name Laterality Status Provider Name and Address Organization Details Recorded Time 10/13/19 24 Most Recent Mammogram completed Christiane Ng [place] [facility] [place] [facility] [place] 08/12/2024 07:06:32 08/22/19 24 Injection Only completed Radha Vera [place] [facility] [place] [facility] [place] 08/23/2023 15:52:19 07/13/19 24 Botox Spasticity [place] Radha Vera [place] [facility] [place] [facility] [place] 07/13/2023 11:16:19 06/05/19 24 Injection Only completed Berkley Pettit [place] [facility] [place] [facility] [place] 06/05/2023 08:52:38 05/22/19 24 Injection Only completed Berkley Pettit [place] [facility] [place] [facility] [place] 05/22/2023 09:18:09 11/30/19 23 Procedure Note completed ARLENE SLADE MSN, SALES EXECUTIVE, [employer]ATOR-[employer] [address] [facility], [place], [address], [place] [facility] [place] [facility] [place] 11/29/2022 13:56:58 09/17/19 21 completed Elly Blandty [place] [facility] [place] [facility] [place] 04/21/2022 09:11:37 05/15/19 21 Date of Last Colonoscopy completed Elly Mattprincessty [place] [facility] [place] [facility] [place] 04/21/2022 09:11:37 03/06/20 19 Colonoscopy completed Christiane Ng [place] [facility] [place] 08/12/2024 07:13:50 05/15/19 16 Head or Neck Surgery completed Elly Mattprincessty [place] [facility] [place] [facility] [place] 04/21/2022 09:11:38 05/15/19 08 Cholecystectomy [place] Marleni Kay [place] [facility] [place] [facility] [place] 01/17/2023 18:48:55 05/15/19 08 Colonoscopy [place]leni Kay [place] [facility] [place] 04/13/2023 12:17:21 05/15/18 96 procedure on knee completed [place]leni Kay [place] [facility] [place] [facility] [place] 01/17/2023 18:48:39 05/15/18 96 extracorporeal shockwave lithotripsy of calculus of kidney completed [place]leni Kay [place] [facility] [place] [facility] [place] 01/17/2023 18:48:24 Imaging Results None recorded. Procedure Notes None recorded. Medical Equipment None Reported. Allergies Allergen ID Allergen Name Allergen Category Reaction Reaction Severity Criticality Documentation Date Start Date Code Code System Note Provider Name and Address Organization Details Recorded Time 83890 Macrobid medicatio n hives swelling Not available Not available Not available 04/21/2022 69570 1 RxNorm [facility] [place] [facility] [place] 2 09:14:22 84036 nitrofura ntoin medicatio n hives swelling Not available Not available Not available 11/07/20222008 7454 RxNorm CATHI [place] - [facility] & [place] 3 09:08:27 Medications Name Sig Start Date Stop Date Status Note LastModified by Organization Details LastModified Time amantadin e HCl 100 mg tablet 02/08 completed Not Available Not Available Not Available cyclobenz aprine 10 mg tablet TAKE ONE TABLET BY MOUTH THREE TIMES DAILY active Not Available Not Available No t Available nystatin 100,000 unit/mL oral suspensio n TAKE 5 ML BY MOUTH 4 TIMES A DAY. 02/08 completed Not Available Not Available Not Available acetamino phen 325 mg tablet 650 mg by oral route. 11/03 completed Not Available Not Available Not Available prednison e 10 mg tablet TAKE 4 TABLETS DAILY FOR 3 DAYS THEN 3 TABS FOR 3 DAYS THEN 2 TABS FOR 3 DAYS THEN 1 TAB FOR 3 DAYS 09/09 completed Not Available Not Available Not Available Protonix 40 mg tablet,de layed release 1 tablet by oral route. 11/29 completed Not Available Not Available Not Available gabapenti n 600 mg tablet TAKE 1 TABLET BY MOUTH THREE TIMES A DAY 04/21 completed Not Available Not Available Not Available atorvasta tin 20 mg tablet TAKE ONE TABLET BY MOUTH ONCE DAILY 09/09 completed Not Available Not Available Not Available metoclopr amide 5 mg/mL injection solution 10 mg by injectio n route. 11/02 completed Not Available Not Available Not Available ipratropi um 0.5 mg-albute rol 3 mg (2.5 mg base)/3 mL nebulizat ion soln TAKE 3 ML BY NEBULIZA TION 4 (FOUR) TIMES A DAY NEEDED FOR WHEEZING . active Not Available Not Available No t Available albuterol sulfate 2.5 mg/3 mL (0.083 %) solution for nebulizat ion INHALE 3 MLS (1 VIAL) VIA NEBULIZE R 4 TIMES A DAY NEEDED 04/27 completed Not Available Not Available Not Available cetirizin e 10 mg tablet 10 mg by oral route. 11/03 completed Not Available Not Available Not Available azithromy shawna 250 mg tablet TAKE 2 TABLETS (500 MG) BY ORAL ROUTE ONCE DAILY FOR 1 DAY THEN 1 TABLET (250 MG) BY ORAL ROUTE ONCE DAILY FOR 4 DAYS 02/08 completed Not Available Not Available Not Available ibuprofen 800 mg tablet 800 mg by oral route. 11/03 completed Not Available Not Available Not Available sulfameth oxazole 400 mg-trimet hoprim 80 mg tablet TAKE 1 TABLET BY MOUTH EVERY DAY FOR 10 DAYS 04/21 completed Not Available Not Available Not Available hydrochlo rothiazid e 50 mg tablet TAKE ONE TABLET BY MOUTH ONCE DAILY IN THE MORNING active Not Available Not Available No t Available methadone 10 mg tablet 120 mg by oral route. 11/03 completed Not Available Not Available Not Available promethaz ine 12.5 mg tablet TAKE ONE TABLET BY MOUTH EVERY SIX HOURS NEEDED active Not Available Not Available No t Available prednison e 20 mg tablet Take 3 tabs x 3 days, 2 tabs x 3 days, 1 tab x 3 days 2024 active Not Available Not Available Not Avai lable gabapenti n 400 mg capsule 800 mg by oral route. 11/03 completed Not Available Not Available Not Available acetamino phen 300 mg-codein e 30 mg tablet Take by oral route for 12 days. 10/02 completed Not Available Not Available Not Available ciproflox acin 500 mg tablet TAKE 1 TABLET BY MOUTH EVERY 12 HOURS FOR 7 DAYS 08/25 completed Not Available Not Available Not Available sulfameth oxazole 800 mg-trimet hoprim 160 mg tablet 06/10 completed Not Available Not Available Not Available ketorolac 30 mg/mL (1 mL) injection solution Inject 1 mL by intramus cular route as needed. 10/02 completed Not Available Not Available Not Available ceftriaxo ne 1 gram solution for injection Take 1 g every day by injectio n route. 01/26 completed Not Available Not Available Not Available potassium chloride 10 mEq/100mL in sterile water intraveno us piggyback 10 milliequ ivalents by intraven . route. 11/02 completed Not Available Not Available Not Available potassium chloride ER 20 mEq tablet,ex tended release(p art/cryst ) TAKE ONE TABLET BY MOUTH ONCE DAILY 09/09 completed Not Available Not Available Not Available gabapenti n 800 mg tablet TAKE ONE TABLET BY MOUTH FOUR TIMES DAILY 2024 active Not Available Not Available Not Avai lable piperacil ed-tazob actam 3.375 gram intraveno us solution 3.375 g by intraven . route. 11/02 completed Not Available Not Available Not Available baclofen 10 mg tablet Take 1 tablet every 12 hours by oral route as needed for 30 days. 02/08 completed Not Available Not Available Not Available cephalexi n 500 mg capsule TAKE 1 CAPSULE BY MOUTH EVERY 6 HOURS FOR 10 DAYS 07/22 completed Not Available Not Available Not Available lansopraz ole 30 mg capsule,d elayed release TAKE ONE CAPSULE BY MOUTH ONCE DAILY PRIOR TO A MEAL active Not Available Not Available No t Available promethaz ine 25 mg/mL injection solution 25 mg by injectio n route. 11/03 completed Not Available Not Available Not Available promethaz ine 25 mg tablet 12.5 mg by oral route. 11/03 completed Not Available Not Available Not Available nicotine 21 mg/24 hr daily transderm al patch Apply 21 mg by transder m. route. 01/26 completed Not Available Not Available Not Available potassium chloride 20 mEq/L in 0.9 % sodium chloride intraveno us 1000 mL by intraven . route. 11/03 completed Not Available Not Available Not Available sertralin e 25 mg tablet TAKE 1 TABLET BY MOUTH EVERY DAY 04/21 completed Not Available Not Available Not Available omeprazol e 20 mg capsule,d elayed release TAKE 1 CAPSULE 30 MINUTES BEFORE MORNING MEAL ONCE A DAY ORALLY 30 11/14 completed Not Available Not Available Not Available tobramyci n 40 mg/mL injection solution 06/10 completed Not Available Not Available Not Available amoxicill in 250 mg capsule TAKE 1 CAPSULE BY MOUTH THREE TIMES A DAY 04/21 completed Not Available Not Available Not Available hydrochlo rothiazid e 25 mg tablet 75 mg by oral route. 11/03 completed Not Available Not Available Not Available levofloxa shawna 500 mg tablet TAKE 1 TABLET EVERY 24 HOURS BY ORAL ROUTE 02/07 completed Not Available Not Available Not Available levofloxa shawna 750 mg tablet TAKE 1 TABLET BY MOUTH EVERY DAY 06/10 completed Not Available Not Available Not Available methylpre dnisolone 4 mg tablets in a dose pack TAKE 6 TABLETS ON DAY 1 DIRECTED ON PACKAGE AND DECREASE BY 1 TAB EACH DAY FOR A TOTAL OF 6 DAYS 08/25 completed Not Available Not Available Not Available methadone 5 mg tablet Take 1 {tablet} by oral route. active 120 mg throught Methadon e clinic daily Not Available Not Available Not Available ondansetr on 4 mg disintegr ating tablet 4 mg by oral route. 11/03 completed Not Available Not Available Not Available cefdinir 300 mg capsule TAKE 1 CAPSULE BY MOUTH EVERY 12 HOURS FOR 10 DAYS 01/26 completed Not Available Not Available Not Available clotrimaz ole 1 % topical cream PLEASE SEE ATTACHED FOR DETAILED DIRECTIO NS 01/26 completed Not Available Not Available Not Available sertralin e 50 mg tablet TAKE ONE TABLET BY MOUTH ONCE DAILY 2024 active Not Available Not Available Not Avai lable loratadin e 10 mg tablet TAKE ONE TABLET BY MOUTH ONCE DAILY 2024 active Not Available Not Available Not Avai lable fluticaso ne propionat e 110 mcg/actua tion HFA aerosol inhaler INHALE 2 PUFFS TWICE A DAY active Not Available Not Available No t Available amoxicill in 875 mg-potass ium clavulana te 125 mg tablet TAKE 1 TABLET BY MOUTH TWICE A DAY 09/09 completed Not Available Not Available Not Available amoxicill in 500 mg-potass ium clavulana te 125 mg tablet TAKE 1 TABLET BY MOUTH TWICE A DAY 04/21 completed Not Available Not Available Not Available Ventolin HFA 90 mcg/actua tion aerosol inhaler INHALE 2 PUFFS EVERY 6 HOURS 04/27 completed Not Available Not Available Not Available enoxapari n 40 mg/0.4 mL subcutane ous syringe 40 mg by sub-q route. 11/03 completed Not Available Not Available Not Available azithromy shawna 500 mg tablet PLEASE SEE ATTACHED FOR DETAILED DIRECTIO NS active Not Available Not Available No t Available ezetimibe 10 mg tablet Take 1 tablet every day by oral route for 90 days. 2024 active Not Available Not Available Not Avai lable nicotine 21mg/24hr -14mg/24h r-7mg/24h r daily transderm patches,s equentl APPLY 1 PATCH DAILY TO SKIN 04/27 completed Not Available Not Available Not Available lansopraz ole 30 mg delayed release,d isintegra ting tablet Place 1 tablet by oral route. 11/17 completed Not Available Not Available Not Available rosuvasta tin 5 mg tablet Take 1 tablet every day by oral route. 09/09 completed Not Available Not Available Not Available ondansetr on HCl (PF) 4 mg/2 mL injection solution 4 mg by injectio n route. 11/02 completed Not Available Not Available Not Available dexametha sone sodium phosphate (PF) 10 mg/mL injection solution 10 mg by injectio n route. 11/02 completed Not Available Not Available Not Available BD PosiFlush Normal Saline 0.9 % injection syringe 10 mL by injectio n route. 11/03 completed Not Available Not Available Not Available Lexiscan 0.4 mg/5 mL intraveno us syringe 0.4 mg by intraven . route. 09/10 completed Not Available Not Available Not Available Solu-Medr ol (PF) 125 mg/2 mL solution for injection Take 125 mg by injectio n route. 10/02 completed Not Available Not Available Not Available Mucus Relief ER 600 mg tablet, extended release Take 1 tablet every 12 hours by oral route for 30 days. 04/27 completed Not Available Not Available Not Available HealthyLa x 17 gram oral powder packet 17 g by oral route. 11/03 completed Not Available Not Available Not Available sodium,po tassium,m ag sulfates 17.5 gram-3.13 gram-1.6 gram oral soln Take 6 ounces twice a day by oral route as directed for 1 day, for colonosc opy prep. 2023 active Not Available Not Available Not Avai lable buprenorp yajaira 5 mcg/hour weekly transderm al patch Apply by transder mal route for 28 days. 08/09 completed Not Available Not Available Not Available Claritin Liqui-Gel 10 mg capsule 1 capsule by oral route. active Not Available Not Available No t Available Daliresp 500 mcg tablet 500 microgra ms by oral route. 11/29 completed Not Available Not Available Not Available potassium chloride ER 20 mEq tablet,ex tended release Take 1 tablet every day by oral route for 30 days. 2024 active Not Available Not Available Not Avai lable Anoro Ellipta 62.5 mcg-25 mcg/actua tion powder for inhalatio n 1 inhalati on by inhalati on route. 11/03 completed Not Available Not Available Not Available ProAir RespiClic k 90 mcg/actua tion breath activated Inhale 2 {puffs_a s_needed }s 6 times a day by inhalati on route. 04/21 completed Not Available Not Available Not Available Stiolto Respimat 2.5 mcg-2.5 mcg/actua tion solution for inhalatio n INHALE 2 PUFFS INTO THE LUNGS ONCE DAILY 2024 active Not Available Not Available Not Avai lable Trelegy Ellipta 100 mcg-62.5 mcg-25 mcg powder for inhalatio n Inhale 1 puff every day by inhalati on route. 11/17 completed Not Available Not Available Not Available baclofen 5 mg tablet TAKE 1 TABLET BY MOUTH EVERY 12 HOURS NEEDED FOR 30 DAYS active Not Available Not Available No t Available [facility] COVID-19 Antigen Rapid Home Test kit active Not Available Not Available Not Available Vitals Date Recorded Body height Body mass index (BMI) Body weight Body temperature Heart rate Oxygen saturation Oxygen saturation in Arterial blood by Pulse oximetry Systolic blood pressure Diastolic blood pressure Provider Name and Address Organization Details Last Updated DateTime 5 162.56 cm 22.7 kg/m2 32247.8 9 g 97.4 [degF] 72 /min 92 % 92 % 114 mm[Hg] 57 mm[Hg] Hailee Vang [facility] & [place] 5 11:36:33 Social History Question Answer Notes LastModified by Organizat ion Details LastModified Time Tobacco Smoking Status Current Every Day Smoker Completed 06-16-2023 Christiane Ng [facility], [facility] & [place] 08/12/2024 07:07:00 Do You Have An Advance Directive? No Information not available 04/21/2022 What Is Your Level Of Alcohol Consumption? None Information not available 04/21/2022 Are You Blind Or Do You Have Difficulty Seeing? No Information not available 04/21/2022 What Is Your Level Of Caffeine Consumption? Occasional [email or web address] Information not available 06/05/2023 Are You Deaf Or Do You Have Serious Difficulty Hearing? No [email or web address] Information not available 06/05/2023 What Type Of Diet Are You Following? REGULAR [email or web address] Information not available 06/05/2023 Have There Been Any Changes To Your Family Or Social Situation? Yes [email or web address] Information not available 06/05/2023 What Is The Fluoride Status Of Your Home? Fluoridated [email or web address] Information not available 06/05/2023 What Was The Date Of Your Most Recent Tobacco Screening? 07/22/2022 [email or web address] Information not available 07/22/2022 What Is Your Current Pack Years? 30ormorepackye ars [email or web address] Information not available 06/05/2023 Do You Have Any Pets? Yes Information not available 06/05/2023 Do You Have Smoke And Carbon Monoxide Detectors In Your Home? Yes [email or web address] Information not available 06/05/2023 At What Age Did You Start Smoking Tobacco? 17 [email or web address] Information not available 06/05/2023 Are You Passively Exposed To Smoke? No Information not available 04/21/2022 Do You Or Have You Ever Used Smokeless Tobacco? Never Used Smokeless Tobacco Information not available 04/21/2022 How Much Tobacco Do You Smoke? 1 PPD Information not available 04/21/2022 Do You Feel Stressed (tense, Restless, Nervous, Or Anxious, Or Unable To Sleep At Night)? [id number] Information not available 04/21/2022 Do You Use Any Illicit Or Recreational Drugs? No Information not available 04/21/2022 Do You Use Sunscreen Routinely? Yes [email or web address] Information not available 06/05/2023 Has Tobacco Cessation Counseling Been Provided? Yes [email or web address] Information not available 06/05/2023 On What Date Was Tobacco Cessation Counseling Provided? 07/22/2022 [email or web address] Information not available 06/05/2023 How Many Years Have You Smoked Tobacco? 34 [email or web address] Information not available 04/21/2022 Do You Or Have You Ever Used Any Other Forms Of Tobacco Or Nicotine? No [email or web address] Information not available 06/05/2023 Sex: Female Functional Status Question Answer Note LastModified by Organizat ion Details LastModified Time Do you have difficulty walking or climbing stairs? No [email or web address] Information not available 06/05/2023 Do you have transportation difficulties? No [email or web address] Information not available 06/05/2023 Are you able to walk? YESWOREST [email or web address] Information not available 06/05/2023 Do you have difficulty doing errands alone? No [email or web address] Information not available 06/05/2023 Are you able to care for yourself? Yes [email or web address] Information not available 06/05/2023 Do you have difficulty dressing or bathing? No [email or web address] Information not available 06/05/2023 What is your exercise level? Moderate Information not available 04/21/2022 Mental Status Question Answer Note LastModified by Organization D etails LastModified Time Do you have difficulty concentrating, remembering or making decisions? No [email or web address] Information no t available 06/05/2023 Family History Relationship Description Onset Age of this Age Resolved Age Notes LastModified by Organization Details LastModified Time Father Malignant tumor of colon 66 [email or web address] Not available 08/14 11:17:56 Father Chronic obstructive pulmonary disease [email or web address] Not available 09:11:12 Father Hypertensive disorder pt. added direct ly (08/09) [email or web address] Not available 08/10/2023 19:37:25 Mother Malignant tumor of colon [email or web address] Not available 08/14 11:17:56 Mother Chronic obstructive pulmonary disease [email or web address] Not available 2022 12:18:07 Mother Myocardial infarction pt. added direct ly (08/09) [email or web address] Not available 08/10/2023 19:37:00 Mother Hypertensive disorder pt. added direct ly (08/09) [email or web address] Not available 08/10/2023 19:37:25 Sister Chronic obstructive pulmonary disease [email or web address] Not available 2022 12:18:07 Unspecified Relation Malignant neoplasm of ovary Grandm other [email or web address] Not available 09/09/2024 11:17:56 Medical History Condition Response Depression Y COPD Y Anxiety Disorder Y Substance Abuse Y High Cholesterol Y Reflux/GERD Y Hypertension Y Gynecological History Statement/Question Response Abnormal Pap N Date of Last Colonoscopy 05/15/2020 09/16/2020 Sexually Active? Y Menses Monthly N Most Recent Mammogram 10/13/2023 Obstetrics History GPAL:G 0 P 0 0 0 0 Immunizations Vaccine Type Date Status Note Provider Nam e and Address Organization Details Recorded Time Influenza, split virus, quadrivalent, PF 8 completed Not Available [facility] 06/21/2023 15:56:10 Influenza, split virus, quadrivalent, PF 9 completed Not Available [facility] 06/21/2023 15:56:10 Influenza, split virus, trivalent, preservative 7 completed Not Available [facility] 06/21/2023 15:56:10 zoster recombinant 2 completed Not Available [facility] 06/21/2023 15:56:10 Influenza, MDCK, quadrivalent, PF 2 completed Not Available [facility] 06/21/2023 15:56:10 Influenza, split virus, quadrivalent, PF 0 completed Not Available [facility] 06/21/2023 15:56:10 Influenza, split virus, quadrivalent, PF 3 completed Marnie de and[place], [place] - [facility] [place] 01/26/2023 14:35:47 Pneumococcal conjugate PCV20, polysaccharide [id number] conjugate, adjuvant, PF 3 completed Marnie de [place], [place] - [facility] [place] 01/26/2023 14:36:39 COVID-19, mRNA, LNP-S, PF, 100 mcg/0.5mL dose or 50 mcg/0.25mL dose 1 completed Not Available [facility] 06/21/2023 15:56:10 COVID-19, mRNA, LNP-S, PF, 100 mcg/0.5mL dose or 50 mcg/0.25mL dose 1 completed Not Available [facility] 06/21/2023 15:56:10 COVID-19, mRNA, LNP-S, PF, 50 mcg/0.5 mL 4 completed Luis Enrique Harman MD [address] , [place], [address], [facility] - [facility] [place] 02/10/2024 20:04:45 Influenza, split virus, trivalent, preservative 4 completed Luis Enrique Harman MD [address] [place], [address], [place] - [facility] [place] 02/10/2024 20:04:45 Past Encounters Encounter ID Performer Location Encounter Start Date Encounter Closed Date Diagnosis/Indication Diagnosis SNOMED-CT Code Diagnosis ICD10 Code Diagnosis Note [id number] Luis Enrique Harman MD [facility] [place] [address] [place] [address] 09/09/2024 11:17:38 09/09/2024 12:03:44 Long-term current use of drug therapy 966210353 Z79.899 Acute exac erbation of chronic obstructive pulmonary disease [id number] J44.1 A total of thirty minutes was spent in regard to this patient's visit reviewing labs and/or imaging, reviewing the patients records, conducting a physical examinatio n, preparing the treatment plan, and discussing the treatment plan with its risk and benefits with the patient today. All questions have been answered. Hyperlipidemia [id number] E78.5 Pt is counselled on routine dietary and lifestyle changes including low fat and low carb diets. Routine lipid panels yearly. Cardiac risk discussed with patient as well today. No changes to lipid regimen today. Pt will work on lifestyle changes to modify risk factors and lipid levels---I ntolerant to [place] Neck pain [id number] M54.2 Stable on current regimen today. Continue the current prescribed regimen with no changes today. Continue with Dr. Villanueva at this time; planning spinal cord stimulator . Meds on chart; no refills needed. Reviewed Rich notes. A total of thirty minutes was spent in regard to this patient's visit reviewing labs and/or imaging, reviewing the patients records, conducting a physical examinatio n, preparing the treatment plan, and discussing the treatment plan with its risk and benefits with the patient today. All questions have been answered. Gastroesop hageal reflux disease [id number] K21.9 Symptoms are stable and well controlled on the current GERD regimen. There are no signs or symptoms of warning/re d flag concerns. Pt denies: dysphagia, odynophagi a, or blood in stool. If sxs start to worsen or change the pt will RTC. Generalize d anxiety disorder [id number] F41.1 Stable on current regimen today. Continue the current prescribed regimen with no changes today. Hypertensive disorder 38 [id number] I10 Hypertensi on is well controlled currently; Pt is tolerating the current medical regimen without any difficulty . No changes needed today. I have asked the patient to keep regular office visits. If needed the patient can return for a nurse visits for follow up to have routine regular BP checks with our office. Also a home log is encouraged . Moderate m ajor depression [id number] F32.1 Continue current regimen; feels stable today Opioid dep endence in remission [id number] F11.21 Health Concerns Section Related Observation LastModified by Organization Detai ls LastModified Time None Recorded Concern Status LastModified by Organization Details LastModified Time None Recorded Payers Encounter Date Sequence Insurance Name Policy Number Policy Bangura Covered Member ID Bangura Member ID Guarantor Name 09/09/2024 1 [facility] [place] (MEDICAID HMO) Brie Low [id number] Brie Low Notes Date Note Type Note Provider Name and Address Organization Details Recorded Time 09/09/2024 text/html Brie Low is a 54-year-old female who presents for a medication follow-up. Recently, she experienced symptoms after her son brought home an illness, which she and her contracted. She was on antibiotics prescribed by her lung doctor but got sick while on them. She visited Dr. Bowers, who attributed her symptoms to allergies, possibly due to nearby soybean spraying. She visited her crane hooker on 08/26, who restarted Zithromax (Monday, Monday, Monday) and continued her breathing medications. She was also prescribed Augmentin and steroids. She has been using breathing treatments, including albuterol and ipratropium, but her oxygen levels have been low, ranging from 82 to 88. She has been experiencing low appetite and nausea. She recently stopped taking rifubicin due to stomach upset and inquired about continuing potassium supplements. She has a history of intolerance to atorvastatin and rosuvastatin and is seeking an alternative cholesterol medication. She has a colonoscopy scheduled for 09/13 but may need to reschedule due to her current illness.1.) Chronic Pain/neck pain/back Pain: History of Chiari Malformation Type 1 with repair/decompression and C1 Laminectomy 2015. Has been on gabapentin prescribed by Dr. Alfredo. Was seen by NS at in 09/2021; NS felt no neurosurgical intervention needed, referred to neurology for RUBIO, PT, and Interventional pain. Has seen interventional pain and have done some injections as well. Has FU with [facility].--MRI C-spine--No specific changes--Referred back to NS at --MRI Brain--NormalCurrently in methadone maintenance clinic for opioid use and cocaine use. 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 In [place] [facility] here [place]. Main office in [place], but see's them here. Has been back to Int. Pain with another round of injections/nerve block. Didn't really help much; discussed rhizotomy but she is not sure she wants to do that.--Had FU in May--Did a nerve block/injections--Now has FU this coming Monday to discuss burning the nerves. -->this was done early 2022 as well--Has had several FU injections since --> Trigger points, botox injections.--was following with [facility]--Missed an apt with [facility], then they didn't want to see her back--has now referred to [facility] and followed there for a while Now with Dr. Villanueva in [facility]. Is planning trial of spinal cord stimulator. Seen him december and jan. Awaiting insurance approval for trial of stimulator. NO Injections. Meds still on chart and unchanged.2.) GERD: on PPI. Symptoms stable. No prior EGD. NO red flag symptoms. GI NOTE ) Heartburn- Continue acid suppression medication- Take PPI 30 minutes before eating for it to be effective- Elevation of head of the bed- Remain upright 2 to 3 hours after eating- Dietary modification: Avoidance of triggers such as fatty foods, caffeine, chocolate, spicy foods, food with high fat content, carbonated beverages, peppermint, acidic and citrus items- Avoidance of tight fitting garments- Promotion of salivation through oral lozenges/chewing gum to neutralize refluxed acid- Avoidance of tobacco and alcohol2) Family history of colon cancer-Last colonoscopy 03/06/2019, no polyps. Recommended repeat colonoscopy in 5 years due to family history. Both parents had colon cancer and has since . Due for repeat colonoscopy and scheduled now 07/12/2024; this was now rescheduled and planned 09/13/2024 but sick today and will need to reschedule. 3.) HTN: No known CAD. On HCTZ and chuck this well. Denies CP, SOA, Palpitations. No CHF.--NM Stress 07/2021 1. No ischemic EKG changes. 2. No inducible chest pain. 3. Appropriate hemodynamic response. 4.) COPD: PFTS 08/2021 Moderate COPD. On MDI therapy. Sxs at baseline. Still smokes. Smokes 1-2 PPD. First started Smoking age 17. LDCT--04/2022, CTA chest 11/2022, LDCT Sxs not good, Dr. Koura not longer in [place]. On Stiolto and insurance in past would not cover trelegy; not on any ICS. Feels currently that she is having worsened productive cough, chest congestion, wheezing and SOA. PResent x 1 week PUL NOTE 08/2024Imaging:Low dose CT Chest from 08/12/24 reviewed. There is evidence of old granulomatous disease. There are no suspicious nodules or other evidence of active chest pathology.Assessment & PlanDiagnoses and all orders for this visit:1. Chronic respiratory failure with hypoxia (Primary)2. COPD with acute exacerbationOther orders- azithromycin (Zithromax) 500 MG tablet; Take 1 tablet by mouth 3 (Three) Times a Week. Take 1 tablet every Monday, Monday and Monday. Indications: COPD Exacerbation Suppression Dispense: 12 tablet; Refill: 6- amoxicillin-clavulanat e (AUGMENTIN) 875-125 MG per tablet; Take 1 tablet by mouth 2 (Two) Times a Day. Dispense: 14 tablet; Refill: 0- predniSONE (DELTASONE) 10 MG tablet; Take 4 tabs daily x 3 days, then take 3 tabs daily x 3 days, then take 2 tabs daily x 3 days, then take 1 tab daily x 3 days Dispense: 30 tablet; Refill: 0Discussion:Ms. Low is a 54yo F who is followed for COPD.1. Stage 2 COPD- Continue Stiolto and Flovent. Insurance does not cover triple therapy.- Continue Duonebs as needed.- Alpha-1 kit was MM.- Restart Azithromycin.- Continue Mucomyst nebs twice daily when mucous is thick.- Treat for an exacerbation today.2. Chronic Respiratory Failure- Continue supplemental oxygen at 3L nasal cannula.3. Tobacco Dependence- Quit smoking approximately 6 years ago. 20pk/yr history prior to quitting.- Low-dose CT chest for lung cancer screening negative in July 2024. Continue yearly screening.4. Klebsiella Pneumonia- Present on sputum culture from October 2023 and treated with a course of Augmentin based on sensitivities.- Repeat sputum culture in January 2024 was negative.Follow up in 4 months. 5.) LISA: On Loratadine. Chuck this well. Sx stable.6.) HMS:--Colon 02/2019--Normal; scheduled 07/12/2024--Mammogram: 05/2022. 09/2023--PAP: No prior ROMAN; no period in years. Cannot recall the PAP. Agreeable to refer to [facility].--LDCT 04/2022, 11/2022, 06/2023-- due now and to be ordered by PUL 7.) Depression: ON sertraline 50mg; This was titrated not too long ago. Feels this dose is a bit more helpful. No concerns today. Denies SI 8.) HL: FLP LDL 170+ 01/2024. Tried atorvastatin and this made her dizzy. Agreeable to try alternate medicine.--Then on rosuvastatin, but she feels it causes her to be nauseated, so she doesn't want to take any statin drug. Luis Enrique Harman MD [address], [place], [address], [facility] [place] [facility] [place] [facility] [place] 09/09/2024 12:03:14 OBGyn Episode No OBEpisode recorded.
--- OUTSIDE RECORDS SUMMARY | 2024-09-20 13:37 | XMS_ITS | Data Portability ---
Author Organization [facility] & [place] [facility] ADMIN Address [address] [place] [id number] Care Team Providers Care Airline Counter Agent Name Role Phone LUIS ENRIQUE HARMAN Primary Care Provider Assessment Encounter Date Assessment Date Assessment LastModified by Organization Details LastModified Time 10/13/2023 10/13/2023 Telehealth visit is being conducted from [address] [place] [address]. This was a real-time clinical encounter over [[email or web address] ]. Consent was obtained to engage in telemedicine service. Greater than 50% of the time spent was devoted to counseling and coordinating care including review of records, pertinent lab data and studies as well as discussing diagnostic evaluation and workup, plan therapeutic interventions and future disposition of care. This included any additional research needed to obtain further information in formulating the plan of care for this patient. This includes counseling with the patient about their disease and diagnosis, specifically as below. Patient was also counseled on the precaution of COVID-19 including importance of hand washing and social distancing. WE SPECIFICALLY DISCUSSED RISK FACTORS FOR COVID-19, INCLUDING AGE>60, HEART OR LUNG DISEASE, DIABETES, IMMUNOSUPPRESSION, AND TRAVEL. WE ALSO DISCUSSED THAT NSAIDS MAY WORSEN COVID-19 INFECTION SYMPTOMS AND THAT THEY SHOULD NOT BE USED TO TREAT COVID-19 SYMPTOMS. PATIENT WAS ALSO INFORMED THAT CORTICOSTEROIDS IN ANY FORM (ORAL OR INJECTABLE) WILL DECREASE IMMUNE RESPONSE AND MAY INCREASE RISK OF COVID-19 INFECTION AND SYMPTOMS. THIS ENCOUNTER WAS PERFORMED A TELEMEDICINE VISIT VIA SECURE TWO-WAY VIDEO AND AUDIO TO MINIMIZE RISK AND TRANSMISSION OF COVID-19. THE PATIENT AND WE UNDERSTAND THE LIMITATIONS OF A TELEMEDICINE VISIT INCLUDING INABILITY TO CHECK REFLEXES, POSSIBLY MISSING SUBTLE FINDINGS ON PHYSICAL EXAM. ALTERNATIVE OPTIONS WERE PRESENTED TO THE PATIENT AND THE PATIENT ELECTED TO PROCEED WITH THE VISIT. Ms. Black was referred by Dr. Harman for management of neck pain. The patient previously (2015) underwent a cervical laminectomy at C1 with Chiari malformation decompression. The patient also has a syrinx. The patient previously followed with pain management at , where she received interventional treatment, including TPIs, Botox injections for spasticity, and cervical RFAs. The patient was also receiving medication from the practice, but we discharged due to missing three appointments in one year. The patient denies DM, anti-coagulant use, and nicotine dependence (former tobacco smoker). The patient has a history of substance abuse and is currently on Methadone. Based on the history and physical exam it appears that the pain is multifactorial in origin, including spasmodic torticollis and occipital neuralgia. The patient presents today via televideo nearly 2 months S/P TPI of the bilateral cervical region, including trapezius and SCM. The patient reports experiencing significant improvement in pain and function of nearly 100%. The patient appears to be happy with the success of the procedure. I will follow up in clinic to re-examine, ultimately deciding on the need for a repeat procedure. I will follow up within 1 month. ------- I have discussed in great detail our potential treatment options which would include a rehabilitative approach to care. This program would include medication management, Physical Therapy, consideration for interventional procedures as appropriate, and lifestyle modification (diet, weight loss, exercise, smoking/tobacco cessation, holistic approach including meditation and yoga). The patient understands and agrees prior to proceeding with this plan. _ __ __ __ __ __ __ __ __ __ __ __ __ __ __ __ __ __ __ __ __ __ __ __ __ __ __ __ _ I counseled the patient extensively and informed of the risks of the procedure, including the risk of paralysis, nerve damage, respiratory arrest, arrhythmias, stroke, weakness, and infection, which although very low, could result in or disability. The patient acknowledged to me that they understand and accept these risks. RN EDUCATION Extensive coordination of care provided by RN to educate patient on upcoming procedure and to coordinate obtaining extensive incoming medical records. -------- RECORDS REVIEW: As per clinic policy, we will have the patient sign a release to obtain previous imaging and clinical notes. _ __ __ __ __ __ __ __ __ __ __ __ __ __ __ __ __ __ __ __ __ __ __ __ __ __ __ __ _ PSYCH: Pain affecting Neuro-psych behavior was discussed. Discussed about pain psychological counseling as a part of the multimodal approach to pain treatment. _ __ __ __ __ __ __ __ __ __ __ __ __ __ __ __ __ __ __ __ __ __ __ __ __ __ __ __ _ REHABILITATION: Discussed with the patient the importance of diet, daily physical activity and PT. Discussed with the patient the need to be scheduled for physical therapy since physical therapy will prolong the benefits of the procedure and interventions. _ __ __ __ __ __ __ __ __ __ __ __ __ __ __ __ __ __ __ __ __ __ __ __ __ __ __ __ _ SOLANGE: PENDING I have reviewed patient's SOLANGE report prior to prescribing Schedule II, III, and IV medications that require review by law. [place] PDMP reviewed and appropriate. UDS reviewed and consistent with current regimen. Controlled substance contract reviewed and signed line by line. Risks of medication therapy including respiratory depression, , and hazards of operating heavy machinery including automobiles discussed at length. Patient given information with six opioid/Controlled substance safety steps: 1. Never take a prescription pain medication unless it is prescribed for you. 2. Do not take pain medicine with alcohol. 3. Do not take more doses than prescribed. 4. Use with other sedative or anti-anxiety medications can be dangerous. 5. Avoid using prescription pain medication to help you fall asleep. 6. Lock up prescription pain medications. Opioid Contract Discussion: The patient was given a copy of the Clinic Prescription Drug Agreement and was counseled extensively regarding its contents. The patient is to take their pain medication exactly as prescribed. No increases in medications are to be without first contacting the office and explaining the reason behind the increase and getting approval to do so. The patient is not to obtain medications from other providers without first notifying the other provider what they obtain from this clinic and need to notify this clinic when they obtain pain medications from other providers. The patient is to bring their pain medications to each and every office visit for pill counts to monitor compliance for their safety. The patient is subject to periodic urine drug testing at the discretion of the provider as well as state and federal regulations. The patient was warned of the risks and benefits of taking opioid pain medication, the risk of addiction, the risk of withdrawal and the differences. [email or web address] Not available 10/13/2023 14:01:36 09/09/2024 09/09/2024 ASSESSMENT: - COPD exacerbation - [...] created using voice recognition/text compilation software with [employer] documentation services during the encounter with the patient; Please excuse any errors due to the reel assembler process. [email or web address] Not available 09/09/2024 11:59:41 Plan of Treatment Reminders Order Date Submit Date Provider Last Modified By Organization Details Last Modified Time Details Appointments SURGERY 15 2024 06:45A Marce Mccloud MD Not available Not available Not available OV EST 20 2024 04:10P Marce Harman MD Not available Not available Not available Lab drug screen, 14 drugs (detectim ed), urine 2024 025 [facility], [address], [address], [place], [address], 09/17/2024 16:25:46 influenza virus A + B + SARS-CoV- 2 (COVID19) Ag panel, rapid IA, upper respirato ry specimen 2024 025 [email or web address] [facility], [facility] [address], [address], [place], [address], 09/09/2024 12:01:40 drug screen, 14 drugs (detectim ed), urine 2024 025 [facility], [address], [address], [place], [address], 07/09/2024 06:38:08 BMP, serum or plasma 2024 025 [facility] (Registration ), [address], [place], [address], 07/03/2024 13:36:39 BMP, serum or plasma [address] (Registration ), [address], [place], [address], 07/11/2024 15:20:16 BMP, serum or plasma [address] (Registration ), [address], [place], [address], 07/18/2024 08:41:40 drug screen, 14 drugs (detectim ed), urine 2023 024 [facility], [address], [address], [place], [address], 02/16/2024 16:15:53 CMP, serum or plasma 2023 024 [facility], [address], [address], [place], [address], 02/10/2024 06:37:41 CBC w/ auto diff 2023 024 [facility], [address], [address], [place], [address], 02/10/2024 06:37:40 lipid panel, serum 2023 024 [facility], [address], [address], [place], [address], 02/10/2024 06:37:41 Referral None recorded. Procedures colonosco py procedure (PROC) [address], [address] [facility], [facility] [address], [place], [address], 04/09/2024 11:33:29 Surgeries None recorded. Imaging None recorded. Medication Orders gabapenti n 800 mg tablet 2024 025 [facility], [address] [place] [address], [address], [place], [address], 09/10/2024 09:27:23 prednison e 20 mg tablet 2024 025 [facility], [address] [place] [address], [address], [place], [address], 09/09/2024 12:52:56 ezetimibe 10 mg tablet 2024 025 [facility], [address] [place] [address], [address], [place], [address], 09/09/2024 12:52:56 amoxicill in 875 mg-potass ium clavulana te 125 mg tablet [email or web address], [address] [place] [address], [address], [place], [address], 09/09/2024 11:47:58 prednison e 20 mg tablet 2024 025 [facility], [address] [place] [address], [address], [place], [address], 06/10/2024 12:47:27 rosuvasta tin 5 mg tablet 2024 025 [facility], [address] [place] [address], [place] [address], [place], [address], 09/09/2024 11:57:53 Patient TargetsNo targets recorded. Patient InstructionsNo instructions recorded. Reason for Referral None Reported. Results Created Date Observation Date Name Description Value Unit Range Abnormal Flag Note LastModifiedBy Organization Detail LastModifiedTime 02/09/2002/10/2024 CBC WITH DIFFE RENTI AL/PL ATELE T WBC 9.5 x10e3 /uL 3.4-10 .8 normal Not Available [facility] ([facility]) [address] [place], [address], 02/10/2024 06:37:40 02/09/2002/10/2024 CBC WITH DIFFE RENTI AL/PL ATELE T RBC 4.96 x10e6 /uL 3.77-5 .28 normal Not Available [facility] ([facility]) [address] [place], [address], 02/10/2024 06:37:40 02/09/20 24 02/10/2024 CBC WITH DIFFE RENTI AL/PL ATELE T hemoglobin 13.4 g/dL 11.1-1 5.9 normal Not Available [facility] ([facility]) [address] [facility], [place], [address], 02/10/2024 06:37:40 02/09/2002/10/2024 CBC WITH DIFFE RENTI AL/PL ATELE T hematocrit 42.5 % 34.0-4 6.6 normal Not Available [facility] ([facility]) [address] [facility] [place], [address], 02/10/2024 06:37:40 02/09/2002/10/2024 CBC WITH DIFFE RENTI AL/PL ATELE T MCV 86 fL 79-97 normal Not Available [facility] ([facility]) [address] [facility], [place], [address], 02/10/2024 06:37:40 02/09/20 24 02/10/2024 CBC WITH DIFFE RENTI AL/PL ATELE T MCH 27.0 pg 26.6-3 3.0 normal Not Available [facility] ([facility]) [address] [place], [address], 02/10/2024 06:37:40 02/09/20 24 02/10/2024 CBC WITH DIFFE RENTI AL/PL ATELE T MCHC 31.5 g/dL 31.5-3 5.7 normal Not Available [facility] ([facility]) [address] [place], [address], 02/10/2024 06:37:40 02/09/2002/10/2024 CBC WITH DIFFE RENTI AL/PL ATELE T RDW 15.8 % 11.7-1 5.4 above high normal Not Available [facility] ([facility]) [address] [place], [address], 02/10/2024 06:37:40 02/09/20 24 02/10/2024 CBC WITH DIFFE RENTI AL/PL ATELE T platelets 185 x10e3 /uL 150-45 0 normal Not Available [facility] ([facility]) [address] [facility], [place], [address], 02/10/2024 06:37:40 02/09/20 24 02/10/2024 CBC WITH DIFFE RENTI AL/PL ATELE T neutrophils 64 % not estab. normal Not Available [facility] ([facility]) [address] [facility], [place], [address], 02/10/2024 06:37:40 02/09/20 24 02/10/2024 CBC WITH DIFFE RENTI AL/PL ATELE T lymphs 29 % not estab. normal Not Available [facility] ([facility]) [address] [facility], [place], [address], 02/10/2024 06:37:40 02/09/20 24 02/10/2024 CBC WITH DIFFE RENTI AL/PL ATELE T monocytes 5 % not estab. normal Not Available [facility] ([facility]) [address] [facility], [place], [address], 02/10/2024 06:37:40 02/09/20 24 02/10/2024 CBC WITH DIFFE RENTI AL/PL ATELE T eos 1 % not estab. normal Not Available [facility] ([facility]) [address] [facility], [place], [address], 02/10/2024 06:37:40 02/09/20 24 02/10/2024 CBC WITH DIFFE RENTI AL/PL ATELE T basos 0 % not estab. normal Not Available [facility] ([facility]) [address] [facility], [place], [address], 02/10/2024 06:37:40 02/09/20 24 02/10/2024 CBC WITH DIFFE RENTI AL/PL ATELE T immature cells ORE TRIMMER Not Available [facility] ([facility]) [address] [facility], [place], [address], 02/10/2024 06:37:40 02/09/20 24 02/10/2024 CBC WITH DIFFE RENTI AL/PL ATELE T neutrophils (absolute) 6.2 x10e3 /uL 1.4-7. 0 normal Not Available [facility] ([facility]) [address] [facility], [place], [address], 02/10/2024 06:37:40 02/09/20 24 02/10/2024 CBC WITH DIFFE RENTI AL/PL ATELE T lymphs (absolute) 2.7 x10e3 /uL 0.7-3. 1 normal Not Available [facility] ([facility]) [address] [place], [address], 02/10/2024 06:37:40 02/09/20 24 02/10/2024 CBC WITH DIFFE RENTI AL/PL ATELE T monocytes(ab solute) 0.5 x10e3 /uL 0.1-0. 9 normal Not Available [facility] ([facility]) [address] [facility], [place], [address], 02/10/2024 06:37:40 02/09/20 24 02/10/2024 CBC WITH DIFFE RENTI AL/PL ATELE T eos (absolute) 0.1 x10e3 /uL 0.0-0. 4 normal Not Available [facility] ([facility]) [address] [place], [address], 02/10/2024 06:37:40 02/09/20 24 02/10/2024 CBC WITH DIFFE RENTI AL/PL ATELE T baso (absolute) 0.0 x10e3 /uL 0.0-0. 2 normal Not Available [facility] ([facility]) [address] [place], [address], 02/10/2024 06:37:40 02/09/20 24 02/10/2024 CBC WITH DIFFE RENTI AL/PL ATELE T immature granulocytes 1 % not estab. Not Available [facility] ([facility]) [address] [facility], [place], [address], 02/10/2024 06:37:40 02/09/20 24 02/10/2024 CBC WITH DIFFE RENTI AL/PL ATELE T immature grans (abs) 0.1 x10e3 /uL 0.0-0. 1 Not Available [facility] ([facility]) [address] [facility], [place], [address], 02/10/2024 06:37:40 02/09/20 24 02/10/2024 CBC WITH DIFFE RENTI AL/PL ATELE T NRBC ORE TRIMMER Not Available [facility] ([facility]) [address] [facility], [place], [address], 02/10/2024 06:37:40 02/09/20 24 02/10/2024 CBC WITH DIFFE RENTI AL/PL ATELE T hematology comments: ORE TRIMMER Not Available [facility] ([facility]) [address] [facility], [place], [address], 02/10/2024 06:37:40 02/09/20 24 02/10/2024 COMP. METAB OLIC PANEL (14) glucose 95 mg/dL 70-99 normal Not Available [facility] ([facility]) [address] [facility], [place], [address], 02/10/2024 06:37:41 02/09/20 24 02/10/2024 COMP. METAB OLIC PANEL (14) BUN 11 mg/dL 6-24 normal Not Available [facility] ([facility]) [address] [facility], [place], [address], 02/10/2024 06:37:41 02/09/20 24 02/10/2024 COMP. METAB OLIC PANEL (14) creatinine 0.78 mg/dL 0.57-1 .00 normal Not Available [facility] ([facility]) [address] [facility], [place], [address], 02/10/2024 06:37:41 02/09/20 24 02/10/2024 COMP. METAB OLIC PANEL (14) BUN/creatini ne ratio 14 9-23 normal Not Available [facility] ([facility]) [address] [facility] [place], [address], 02/10/2024 06:37:41 02/09/20 24 02/10/2024 COMP. METAB OLIC PANEL (14) sodium 139 mmol/ L 134-14 4 normal Not Available [facility] ([facility]) [address] [facility] [place], [address], 02/10/2024 06:37:41 02/09/20 24 02/10/2024 COMP. METAB OLIC PANEL (14) potassium 2.9 mmol/ L 3.5-5. 2 below low normal Not Available [facility] ([facility]) [address] [facility] [place], [address], 02/10/2024 06:37:41 02/09/20 24 02/10/2024 COMP. METAB OLIC PANEL (14) chloride 94 mmol/ L 96-106 below low normal Not Available [facility] ([facility]) [address] [facility] [place], [address], 02/10/2024 06:37:41 02/09/20 24 02/10/2024 COMP. METAB OLIC PANEL (14) carbon dioxide, total 29 mmol/ L 20-29 normal Not Available [facility] ([facility]) [address] [facility] [place], [address], 02/10/2024 06:37:41 02/09/20 24 02/10/2024 COMP. METAB OLIC PANEL (14) calcium 9.4 mg/dL 8.7-10 .2 normal Not Available [facility] ([facility]) [address] [facility] [place], [address], 02/10/2024 06:37:41 02/09/20 24 02/10/2024 COMP. METAB OLIC PANEL (14) protein, total 7.0 g/dL 6.0-8. 5 normal Not Available [facility] ([facility]) [address] [facility] [place], [address], 02/10/2024 06:37:41 02/09/20 24 02/10/2024 COMP. METAB OLIC PANEL (14) albumin 4.3 g/dL 3.8-4. 9 normal Not Available [facility] ([facility]) [address] [facility] [place], [address], 02/10/2024 06:37:41 02/09/20 24 02/10/2024 COMP. METAB OLIC PANEL (14) globulin, total 2.7 g/dL 1.5-4. 5 Not Available [facility] ([facility]) [address] [facility] [place], [address], 02/10/2024 06:37:41 02/09/20 24 02/10/2024 COMP. METAB OLIC PANEL (14) bilirubin, total 0.2 mg/dL 0.0-1. 2 normal Not Available [facility] ([facility]) [address] [place], [address], 02/10/2024 06:37:41 02/09/20 24 02/10/2024 COMP. METAB OLIC PANEL (14) alkaline phosphatase 85 IU/L 44-121 normal Not Available [facility] ([facility]) [address] [place], [address], 02/10/2024 06:37:41 02/09/20 24 02/10/2024 COMP. METAB OLIC PANEL (14) AST (SGOT) 17 IU/L 0-40 normal Not Available [facility] ([facility]) [address] [place], [address], 02/10/2024 06:37:41 02/09/20 24 02/10/2024 COMP. METAB OLIC PANEL (14) ALT (SGPT) 11 IU/L 0-32 normal Not Available [facility] ([facility]) [address] [facility] [place], [address], 02/10/2024 06:37:41 02/09/20 24 02/10/2024 LIPID PANEL cholesterol, total 248 mg/dL 100-19 9 above high normal Not Available [facility] ([facility]) [address] [place], [address], 02/10/2024 06:37:41 02/09/20 24 02/10/2024 LIPID PANEL triglyceride s 185 mg/dL 0-149 above high normal Not Available [facility] ([facility]) [address] [place], [address], 02/10/2024 06:37:41 02/09/20 24 02/10/2024 LIPID PANEL HDL cholesterol 44 mg/dL >39 normal Not Available [facility] ([facility]) [address] [place], [address], 02/10/2024 06:37:41 02/09/20 24 02/10/2024 LIPID PANEL VLDL cholesterol baldomero 34 mg/dL 5-40 Not Available [facility] ([facility]) [address] [place], [address], 02/10/2024 06:37:41 02/09/20 24 02/10/2024 LIPID PANEL LDL chol calc ([facility]) 170 mg/dL 0-99 above high normal Not Available [facility] ([facility]) [address] [place], [address], 02/10/2024 06:37:41 02/09/20 24 02/10/2024 LIPID PANEL LDL calc comment: ORE TRIMMER Not Available [facility] ([facility]) [address] [place], [address], 02/10/2024 06:37:41 02/09/20 24 02/16/2024 COMPL IANCE DRUG CAIN SIS, UR summary report (summary) FINAL ===== ===== ===== ===== ===== ===== ===== ===== ===== ===== ===== ===== ===== === TOXAS SURE COMP DRUG CAIN SIS,U R ===== ===== ===== ===== ===== ===== ===== ===== ===== ===== ===== ===== ===== === Test Resul t Flag Units Drug Prese nt Carbo xy-TH C 46 ng/mg creat Carbo xy-TH C is a metab olite of tetra hydro canna binol (THC) . Sourc e of THC is most commo nly herba l marij uana or marij uana- based produ cts, but THC is also prese nt in a sched uled presc ripti on medic ation . Trace amoun ts of THC can be prese nt in hemp and canna bidio l (CBD) produ cts. This test is not inten ded to disti nguis h betwe en delta -9-te trahy droca nnabi nol, the predo minan t form of THC in most herba l or marij uana- based produ cts, and delta -8-te trahy droca nnabi nol. Metha done 2738 ng/mg creat EDDP (Meth adone Mtb) >6993 ng/mg creat Sourc es of metha done inclu de sched uled presc ripti on medic ation s. EDDP is an expec qi metab olite of metha done. Gabap entin PRESE NT Sertr kay PRESE NT Desme thyls ertra line PRESE NT Desme thyls ertra line is an expec qi metab olite of sertr kay . ===== ===== ===== ===== ===== ===== ===== ===== ===== ===== ===== ===== ===== === Test Resul t Flag Units Ref Range Creat inine 143 mg/dL >=20 ===== ===== ===== ===== ===== ===== ===== ===== ===== ===== ===== ===== ===== === Decla red Medic ation s: Medic ation list was not provi ded. ===== ===== ===== ===== ===== ===== ===== ===== ===== ===== ===== ===== ===== === For clini baldomero consu ltati on, pleas e call . ===== ===== ===== ===== ===== ===== ===== ===== ===== ===== ===== ===== ===== === Not Available [facility] ([facility]) [address] [facility], [place], [address], 02/16/2024 16:15:53 02/09/20 24 02/16/2024 COMPL IANCE DRUG CAIN SIS, UR pdf . Not Available [facility] ([facility]) [address] [facility], [place], [address], 02/16/2024 16:15:53 07/03/19 25 07/03/2024 BASIC METAB OLIC PANEL sodium 141 mmol/ L 136-14 5 Not Available [facility] ([facility]) [address], [place], [address], 07/03/2024 12:11:17 07/03/19 25 07/03/2024 BASIC METAB OLIC PANEL potassium 3.1 mmol/ L 3.6-5. 0 low Not Available [facility] ([facility]) [address], [place], [address], 07/03/2024 12:11:17 07/03/19 25 07/03/2024 BASIC METAB OLIC PANEL chloride 100 mmol/ L 98-107 Not Available [facility] ([facility]) [address], [place], [address], 07/03/2024 12:11:17 07/03/19 25 07/03/2024 BASIC METAB OLIC PANEL carbon dioxide 36.4 mmol/ L 21.0-3 2.0 high Not Available [facility] ([facility]) [address], [place], [address], 07/03/2024 12:11:17 07/03/19 25 07/03/2024 BASIC METAB OLIC PANEL anion gap 7.7 Not Available [facility] ([facility]) [address] , [place], [address], 07/03/2024 12:11:17 07/03/19 25 07/03/2024 BASIC METAB OLIC PANEL glucose 76 mg/dL 70-120 Not Available [facility] ([facility]) [address] , [place], [address], 07/03/2024 12:11:17 07/03/19 25 07/03/2024 BASIC METAB OLIC PANEL BUN 12 mg/dL 7-18 Not Available [facility] ([facility]) [address] , [place], [address], 07/03/2024 12:11:17 07/03/19 25 07/03/2024 BASIC METAB OLIC PANEL creatinine 0.7 mg/dL 0.6-1. 3 Not Available [facility] ([facility]) [address] [place], [address], 07/03/2024 12:11:17 07/03/19 25 07/03/2024 BASIC METAB OLIC PANEL glomerular filtration rate 103 mlper min 60- GFR LIMIT ATION : The eGFR equat ion CKD-E PI 2020 is not appli cable for pedia tric patie nts or great er than 90 years of age. The follo wing condi tions may alter the GFR resul t: extre mes in body size, malnu triti on or obesi ty, skele mary muscl e disea se, parap legia or quadr ipleg ia, veget cintia diet or rapid ly odell ing kiney funct ion. Not Available [facility] ([facility]) [address], [place], [address], 07/03/2024 12:11:17 07/03/19 25 07/03/2024 BASIC METAB OLIC PANEL calcium 9.7 mg/dL 8.5-10 .5 Not Available [facility] ([facility]) [address], [place], [address], 07/03/2024 12:11:17 07/03/19 25 07/08/2024 COMPL IANCE DRUG CAIN SIS, UR summary report (summary) FINAL ===== ===== ===== ===== ===== ===== ===== ===== ===== ===== ===== ===== ===== === TOXAS SURE COMP DRUG CAIN SIS,U R ===== ===== ===== ===== ===== ===== ===== ===== ===== ===== ===== ===== ===== === Test Resul t Flag Units Drug Prese nt Carbo xy-TH C 69 ng/mg creat Carbo xy-TH C is a metab olite of tetra hydro canna binol (THC) . Sourc e of THC is most commo nly herba l marij uana or marij uana- based produ cts, but THC is also prese nt in a sched uled presc ripti on medic ation . Trace amoun ts of THC can be prese nt in hemp and canna bidio l (CBD) produ cts. This test is not inten ded to disti nguis h betwe en delta -9-te trahy droca nnabi nol, the predo minan t form of THC in most herba l or marij uana- based produ cts, and delta -8-te trahy droca nnabi nol. Metha done 6279 ng/mg creat EDDP (Meth adone Mtb) >7752 ng/mg creat Sourc es of metha done inclu de sched uled presc ripti on medic ation s. EDDP is an expec qi metab olite of metha done. Gabap entin PRESE NT Sertr kay PRESE NT Desme thyls ertra line PRESE NT Desme thyls ertra line is an expec qi metab olite of sertr kay . ===== ===== ===== ===== ===== ===== ===== ===== ===== ===== ===== ===== ===== === Test Resul t Flag Units Ref Range Creat inine 129 mg/dL >=20 ===== ===== ===== ===== ===== ===== ===== ===== ===== ===== ===== ===== ===== === Decla red Medic ation s: Medic ation list was not provi ded. ===== ===== ===== ===== ===== ===== ===== ===== ===== ===== ===== ===== ===== === For clini baldomero consu ltati on, pleas e call [phone]. ===== ===== ===== ===== ===== ===== ===== ===== ===== ===== ===== ===== ===== === Not Available [facility] ([facility]) [address] [facility], [place], [address], 07/09/2024 06:38:08 07/03/19 25 07/08/2024 COMPL IANCE DRUG CAIN SIS, UR pdf . Not Available [facility] ([facility]) [address] [facility], [place], [address], 07/09/2024 06:38:08 07/04/19 25 07/04/2024 BASIC METAB OLIC PANEL sodium 141 mmol/ L 136-14 5 Not Available [facility] ([facility]) [address] [place], [address], 07/04/2024 13:44:42 07/04/19 25 07/04/2024 BASIC METAB OLIC PANEL potassium 3.3 mmol/ L 3.6-5. 0 low Not Available [facility] ([facility]) [address] [place], [address], 07/04/2024 13:44:42 07/04/19 25 07/04/2024 BASIC METAB OLIC PANEL chloride 102 mmol/ L 98-107 Not Available [facility] ([facility]) [address] [place], [address], 07/04/2024 13:44:42 07/04/19 25 07/04/2024 BASIC METAB OLIC PANEL carbon dioxide 32.0 mmol/ L 21.0-3 2.0 Not Available [facility] ([facility]) [address] [place], [address], 07/04/2024 13:44:42 07/04/19 25 07/04/2024 BASIC METAB OLIC PANEL anion gap 10.3 Not Available [facility] ([facility]) [address] , [place], [address], 07/04/2024 13:44:42 07/04/19 25 07/04/2024 BASIC METAB OLIC PANEL glucose 75 mg/dL 70-120 Not Available [facility] ([facility]) [address], [place], [address], 07/04/2024 13:44:42 07/04/19 25 07/04/2024 BASIC METAB OLIC PANEL BUN 12 mg/dL 7-18 Not Available [facility] ([facility]) [address] , [place], [address], 07/04/2024 13:44:42 07/04/19 25 07/04/2024 BASIC METAB OLIC PANEL creatinine 0.8 mg/dL 0.6-1. 3 Not Available [facility] ([facility]) [address] , [place], [address], 07/04/2024 13:44:42 07/04/19 25 07/04/2024 BASIC METAB OLIC PANEL glomerular filtration rate 88 mlper min 60- GFR LIMIT ATION : The eGFR equat ion CKD-E PI 2020 is not appli cable for pedia tric patie nts or great er than 90 years of age. The follo wing condi tions may alter the GFR resul t: extre mes in body size, malnu triti on or obesi ty, skele mary muscl e disea se, parap legia or quadr ipleg ia, veget cintia diet or rapid ly odell ing kiney funct ion. Not Available [facility] ([facility]) [address] , [place], [address], 07/04/2024 13:44:42 07/04/19 25 07/04/2024 BASIC METAB OLIC PANEL calcium 9.2 mg/dL 8.5-10 .5 Not Available [facility] ([facility]) [address] , [place], [address], 07/04/2024 13:44:42 09/10/19 25 09/17/2024 COMPL IANCE DRUG CAIN SIS, UR summary report (summary) FINAL ===== ===== ===== ===== ===== ===== ===== ===== ===== ===== ===== ===== ===== === TOXAS SURE COMP DRUG CAIN SIS,U R ===== ===== ===== ===== ===== ===== ===== ===== ===== ===== ===== ===== ===== === Test Resul t Flag Units Drug Prese nt Alcoh ol, Ethyl 0.029 g/dL Sourc es of ethyl alcoh ol inclu de alcoh olic bever ages or as a ferme ntati on produ ct of gluco se; gluco se was not detec qi in this speci men. Ethyl alcoh ol resul t shoul d be inter prete d in the luis xt of all avail able clini baldomero and behav ioral infor matsona n. Carbo xy-TH C 41 ng/mg creat Carbo xy-TH C is a metab olite of tetra hydro canna binol (THC) . Sourc e of THC is most commo nly herba l marij uana or marij uana- based produ cts, but THC is also prese nt in a sched uled presc ripti on medic ation . Trace amoun ts of THC can be prese nt in hemp and canna bidio l (CBD) produ cts. This test is not inten ded to disti nguis h betwe en delta -9-te trahy droca nnabi nol, the predo minan t form of THC in most herba l or marij uana- based produ cts, and delta -8-te trahy droca nnabi nol. Metha done 781 ng/mg creat EDDP (Meth adone Mtb) >2950 ng/mg creat Sourc es of metha done inclu de sched uled presc ripti on medic ation s. EDDP is an expec qi metab olite of metha done. Gabap entin PRESE NT Sertr kay PRESE NT Desme thyls ertra line PRESE NT Desme thyls ertra line is an expec qi metab olite of sertr kay . ===== ===== ===== ===== ===== ===== ===== ===== ===== ===== ===== ===== ===== === Test Resul t Flag Units Ref Range Creat inine 339 mg/dL >= 20 ===== ===== ===== ===== ===== ===== ===== ===== ===== ===== ===== ===== ===== === Decla red Medic ation s: Medic ation list was not provi ded. ===== ===== ===== ===== ===== ===== ===== ===== ===== ===== ===== ===== ===== === For clini baldomero consu ltati on, pleas e call . ===== ===== ===== ===== ===== ===== ===== ===== ===== ===== ===== ===== ===== === Not Available [facility] ([facility]) [address] [facility], [place], [address], 09/17/2024 16:25:46 09/10/19 25 09/17/2024 COMPL IANCE DRUG CAIN SIS, UR pdf . Not Available [facility] ([facility]) [address] [facility], [place], [address], 09/17/2024 16:25:46 09/10/19 25 09/09/2024 influ lamont virus A + B + SARS- CoV-2 (COVI D19) Ag panel , rapid IA, upper respi rator y speci men FLU A negati ve Not Available [facility] [address] , [place], [address], 09/09/2024 11:30:00 09/10/19 25 09/09/2024 influ lamont virus A + B + SARS- CoV-2 (COVI D19) Ag panel , rapid IA, upper respi rator y speci men FLU B negati ve Not Available [facility] [address], [place], [address], 09/09/2024 11:30:00 09/10/19 25 09/09/2024 influ lamont virus A + B + SARS- CoV-2 (COVI D19) Ag panel , rapid IA, upper respi rator y speci men SARS COV + SARS OV 2 negati ve Not Available [facility] [address], [place], [address], 09/09/2024 11:30:00 09/12/19 24 09/11/2023 heart SPECT multi rest/ stres s CARDIO LOGY REPORT - ORDERS -BASED JEFF LOW [facility] 5 2 EXAM: HEART SPECT MULTI REST/S [facility] [id number] DATE OF EXAM: 2023 06:57: 27 NUCLEA R STRESS TEST. PROVID ER: Xavier Dejesus MD, FACC INDICA TIONS: Chest pain. REQUES TING PHYSIC HUMBERTO: Luis Enrique Harman MD DESCRI PTION OF THE PROCED URE: After obtain ing inform ed consen t, the patien t underw ent pharma cologi baldomero stress test as per Lexisc an protoc ol. Restin g heart rate of 56, kiel to a maximu m of 70 beats per minute . Restin g blood pressu re of 124/69 , reache d a aisha of 107/60 mmHg. Stress test was stoppe d as per protoc ol. No signif icant sympto ms with Lexisc an infusi on. At rest, 9.96 millic uries of techne tium tetrof miesha was infuse d. Rest SPECT images were obtain ed. At peak stress , 30.37 millic uries of techne tium tetrof miesha was infuse d. Stress SPECT images were obtain ed. Gated SPECT images were obtain ed. FINDIN GS: Baseli ne EKG showed normal sinus rhythm with no arrhyt hmia or ischem ic EKG change s. Calcul ated EF of 61%. TID ratio of 1.04. Review of the axial images showed a hotspo t near the inferi or wall in the rest and stress images , which compro mised the qualit y of the study. Howeve r, no eviden ce of myocar dial ischem ia was noted. IMPRES TANYA: No eviden ce of myocar dial ischem ia. Calcul ated ejecti on fracti on of 61%. DICTAT ED BY: Xavier Dejesus MD, [facility] JT/MOD L DD: 2023 12:58: 46 DT: 2023 15:53: 38 /[id number] Electr onical ly Signed By: FLEX Deng 09-11 14:52: 44 CC'ed Logic: Orderi ng Provid er: NOAH LY CC Provid er: NOAH LY Attend ing Provid er: NOAH LY Referr ing Provid er: NOAH LY Admitt ing Provid er: NOAH flores [facility] [address] , [place], [address], 10/02/2023 08:01:47 09/12/19 24 09/11/2023 pa bone s test (PROC ) CARDIO LOGY REPORT - ORDERS -BASED JEFF LOW [facility] 5 2 EXAM: HEART SPECT MULTI REST/S [facility] [id number] DATE OF EXAM: 2023 06:57: 27 NUCLEA R STRESS TEST. PROVID ER: Xavier Dejesus MD, [facility] INDICA TIONS: Chest pain. REQUES TING PHYSIC HUMBERTO: Luis Enrique Harman MD DESCRI PTION OF THE PROCED URE: After obtain ing inform ed consen t, the patien t underw ent pharma cologi baldomero stress test as per Lexisc an protoc ol. Restin g heart rate of 56, kiel to a maximu m of 70 beats per minute . Restin g blood pressu re of 124/69 , reache d a aisha of 107/60 mmHg. Stress test was stoppe d as per protoc ol. No signif icant sympto ms with Lexisc an infusi on. At rest, 9.96 millic uries of techne tium tetrof miesha was infuse d. Rest SPECT images were obtain ed. At peak stress , 30.37 millic uries of techne tium tetrof miesha was infuse d. Stress SPECT images were obtain ed. Gated SPECT images were obtain ed. FINDIN GS: Baseli ne EKG showed normal sinus rhythm with no arrhyt hmia or ischem ic EKG change s. Calcul ated EF of 61%. TID ratio of 1.04. Review of the axial images showed a hotspo t near the inferi or wall in the rest and stress images , which compro mised the qualit y of the study. Howeve r, no eviden ce of myocar dial ischem ia was noted. IMPRES TANYA: No eviden ce of myocar dial ischem ia. Calcul ated ejecti on fracti on of 61%. DICTAT ED BY: Xavier Dejesus MD, [facility] JT/MOD L DD: 2023 12:58: 46 DT: 2023 15:53: 38 /[id number] Electr onical ly Signed By: FLEX Deng 09-11 14:52: 44 CC'ed Logic: Orderi ng Provid er: FLEX [email or web address] [facility] ([facility]) [address] , [place], [address], 10/02/2023 08:01:43 10/13/19 24 10/13/2023 luan scrn [facility] [address] [place] [address] Phone: Fax: Name: JEFF LOW Exam Date: : 972 Age 53 years Gender : F Access ion: [id number] Physic humberto: Luis Enrique Harman Facili ty: [facility] Facili ty HSV: Outpat ient Exam: LUAN SCRN MAMMO W/CAD BILAT MAMMOG CINTHYA SCREEN ING BILATE RAL HISTOR Y: Routin e screen ing exam COMPAR MIKE: y 2022 TECHNI QUE: Standa rd digita l 2-D views with 3-D tomosy nthesi s DENSIT Y: Breast s are hetero geneou sly dense, which can obscur e nodule s. FINDIN GS: Benign calcif icatio ns. Scatte red areas of focal asymme try are noted. No new suspic ious mass, suspic ious calcif icatio ns or nae ectura l distor tion is presen t. IMPRES TANYA: No mammog raphic eviden ce of malign austin BI-RAD S 2: Benign findin g RECOMM ENDATI ON: Annual mammog theresa CAD was utiliz ed during interp retati on. The patien t will be sent a letter from the mammog theresa depart ment with their mammog theresa result s. Dictat ed By: Yomi Dhaliwal Transc ribed By: Yomi Ny Transc ribed On: 4:23 PM Electr onical ly signed by: Yomi Dhaliwal Thank you for referr JEFF Mortensen to [facility]. Legall y authen ticate d by NICHO PRASAD 10-12 16:23: 57 CC'ed Logic: Orderi ng Provid er: NOAH LY CC Provid er: NOAH LY Attend ing Provid er: NOAH LY Referr ing Provid er: NOAH LY Admitt ing Provid er: NOAH [email or web address] [facility] [address], [place], [address], 10/14/2023 09:21:24 04/19/20 24 04/19/2024 imagi ng/di agnos tic resul t No observ ation record ed. [email or web address] [facility] [address], [place], [place], [address], 05/30/2024 16:06:58 07/03/19 25 2024 elect nara rene am, wandy ne ECG, 12 leads min No observ ation record ed. [email or web address] [facility] [address], [place], [place], [address], 07/04/2024 11:20:08 Result Notes None recorded. Problems Name Problem SNOMED Code Status Onset Date Resolution Date Notes Provider Name and Address Organization Details Recorded Time Opioid dependenc e in remission 645879019 Active Not Available [facility] 4 15:56:09 History of craniotom y 413718495 Active Not Available [facility] 4 15:56:09 Hypertens diamond disorder 07416904 Active Not Available [facility] 4 15:56:09 Spasm 82728704 Completed 10/25/2022 Luis Enrique Harman MD [address], [place], [address] , [facility] & [place] 3 11:47:04 Acute asthma 518352929 Completed 10/25/2022 Luis Enrique Harman MD [address], [place], [address] , [facility] & [place] 3 11:47:04 Family history of cancer of colon 873890884 Active Not Available [facility] 4 15:56:09 Syringomy lisa 820928257 Active Not Available [facility] 4 15:56:09 Chronic obstructi ve pulmonary disease 91960569 Active Not Available [facility] 4 15:56:09 Moderate major depressio n 779922 Active Not Available [facility] 4 15:56:10 Neck pain 38300748 Active Not Available [facility] 4 15:56:10 Chronic pain 48871794 Active Not Available [facility] 4 15:56:10 Sinusitis 79100995 Completed 10/25/2022 Luis Enrique Harman MD [address], [place], [address] , [facility] & [place] 3 11:47:04 Nicotine user 150099439 Active Not Available [facility] 4 15:56:10 Compressi on of brain 24012685 Completed 10/25/2022 Luis Enrique Harman MD [address], [facility] [address] [facility] & [place] 3 11:47:04 Gastroeso phageal reflux disease 624916431 Active Not Available [facility] 4 15:56:09 Chiari malformat ion 000665367 Active Not Available [facility] 4 15:56:09 Hyperlipi demia 63249732 Active Not Available [facility] 4 15:56:10 Sclerosin g adenosis of right breast 30560265178 676727 Completed 10/25/2022 Luis Enrique Harman MD [address], [place], [address] , [facility] & [place] 3 11:47:04 Generaliz ed anxiety disorder 44034756 Active Not Available [facility] 4 15:56:09 History of brain disorder 591223308 Completed 10/25/2022 Luis Enrique Harman MD [address], [place], [address] , [facility] & [place] 3 11:47:04 Family history of malignant neoplasm of ovary 395620698 Active Not Available [facility] 4 15:56:10 Pneumonit is 024676690 Active Not Available [facility] 4 15:56:09 Acute hypoxemic respirato ry failure 645068656 Active Not Available [facility] 4 15:56:10 Pulmonary emphysema 77213082 Active 2022 Not Available [facility] 4 15:56:10 Dyspnea on exertion 91488926 Active 2022 Not Available [facility] 4 15:56:10 Tobacco dependenc e caused by cigarette s 88304216029 101027 Active 2022 Not Available [facility] 4 15:56:09 Anxiety 77705931 Active 2022 Not Available [facility] 4 15:56:10 Cervico-o ccipital neuralgia 75774763 Active 2023 Radha Lyleskins null[place] [facility] 4 15:10:59 Spasmodic torticoll is 04661541 Active 2023 Radha Vera [place], [place] [facility] - [place] [facility] [place] 4 15:11:00 Radicular pain 82755534 Active 2023 Radha Vera [place], [place] [facility] [place] & [place] 4 15:11:01 Myofascia l pain 044121187 Active 2023 Radha Vera [place], [place] [facility] [place] & [place] 4 15:11:02 Post-lami nectomy syndrome 62039707 Active 2023 Radha Vera [place], [place] [facility] [place] & [place] 4 15:11:03 Spinal enthesopa thy of cervical region Active 2023 Radha Vera null, [place] [facility] [place] & [place] 4 15:52:50 Problem Notes None recorded. Procedures Surgical History Date Name Laterality Status Provider Name and Address Organization Details Recorded Time 10/13/19 24 Most Recent Mammogram completed Christiane [facility] [place] 08/12/2024 07:06:32 08/22/19 24 Injection Only completed Radha Vera [place] [facility] & [place] 08/23/2023 15:52:19 07/13/19 24 Botox Spasticity completed Radha Vera [place] - [facility] - [place] & [place] 07/13/2023 11:16:19 06/05/19 24 Injection Only completed Berkley Pettit [place] [facility] [place] 06/05/2023 08:52:38 05/22/19 24 Injection Only completed Berkley Pettit [place] [facility] [place] 05/22/2023 09:18:09 11/30/19 23 Procedure Note completed ARLENE SLADE MSN, VENEER MATCHER, NOTCH GRINDER-C [address] [facility], [place], [address], [place] [facility] - [place] & [place] 11/29/2022 13:56:58 09/17/19 21 completed Elly Shakaprincessty [place] - [facility] - [place] & [place] 04/21/2022 09:11:37 05/15/19 21 Date of Last Colonoscopy completed Elly Shakaprincessty [place] [facility] [place] & [place] 04/21/2022 09:11:37 03/06/20 19 Colonoscopy completed Christiane Ng [place] [facility] [place] & [place] 08/12/2024 07:13:50 05/15/19 16 Head or Neck Surgery completed Elly Shakaharty [place] [facility] [place] & [place] 04/21/2022 09:11:38 05/15/19 08 Cholecystectomy completed Marleni Kay [place] [facility] [place] 01/17/2023 18:48:55 05/15/19 08 Colonoscopy completed [place]i Kay [place] [facility] [place] 04/13/2023 12:17:21 05/15/18 96 procedure on knee completed [place]i Kay [place] [facility] [place] 01/17/2023 18:48:39 05/15/18 96 extracorporeal shockwave lithotripsy of calculus of kidney completed Marleni Villanueva [facility] & [place] 01/17/2023 18:48:24 Imaging Results Imaging Date Name Status LastModified by Trish stone Details LastModified Time 09/11/2023 heart SPECT multi rest/stress completed [address] - [facility] [address] [facility], [place], [address], 10/02/2023 08:01:47 09/11/2023 lexiscan cardiolite stress test (PROC) completed [address] (Centralized Scheduling) [address], [place], [address], 10/02/2023 08:01:43 10/13/2023 luan scrn mammo w/CAD bilat completed [address] - [facility] [address] [facility], [place], [address], 10/14/2023 09:21:24 04/19/2024 imaging/diagnos tic result completed [email or web address] [facility] [address], [place], [address], 05/30/2024 16:06:58 2024 electrocardiogr am, routine ECG, 12 leads min completed [email or web address] [facility] [address], [place], [address], 07/04/2024 11:20:08 Procedure Notes None recorded. Medical Equipment None Reported. Allergies Allergen ID Allergen Name Allergen Category Reaction Reaction Severity Criticality Documentation Date Start Date Code Code System Note Provider Name and Address Organization Details Recorded Time 37379 Macrobid medicatio n hives swelling Not available Not available Not available 04/21/2022 30297 1 RxNorm Elly Oz de anda, [place] [facility] & [place] 09:14:22 71215 nitrofura ntoin medicatio n hives swelling Not available Not available Not available 11/07/20222008 7454 [facility] [place] [facility] [place] & [place] 09:08:27 Medications Name Sig Start Date Stop [...] for 1 day, for colonosc opy prep. 10/31/ 2024 active Not Available Not Available Not [...] Not Available Not Available No t Available [facility] COVID-19 Antigen Rapid Home Test kit active Not Available Not Available Not Available Vitals Date Recorded Body height Provider Name an d Address Organization Details Last Updated DateTime 10/13/2023 162.56 cm [facility] T [facility] & [place] 10/13/2023 12:20:58 Date Recorded Body height Body mass index (BMI) Body weight Body temperature Heart rate Oxygen saturation Oxygen saturation in Arterial blood by Pulse oximetry Systolic blood pressure Diastolic blood pressure Provider Name and Address Organization Details Last Updated DateTime 4 162.56 cm 25.2 kg/m2 82908.6 4 g 97.2 [degF] 62 /min 93 % 93 % 123 mm[Hg] 82 mm[Hg] Magalys Dav WINKLER [facility] & [place] 4 10:06:54 Date Recorded Body height Body mass index (BMI) Body weight Body temperature Heart rate Oxygen saturation Oxygen saturation in Arterial blood by Pulse oximetry Inhaled oxygen flow rate Systolic blood pressure Diastolic blood pressure Provider Name and Address Organization Details Last Updated DateTime 5 162.56 cm 23.7 kg/m2 59777.7 5 g 97.1 [degF] 66 /min 95 % 95 % 3 L/min 114 mm[Hg] 72 mm[Hg] Magalys Dav WINKLER [facility] [place] 5 11:34:53 Date Recorded Body height Body mass index (BMI) Body weight Body temperature Oxygen saturation Oxygen saturation in Arterial blood by Pulse oximetry Inhaled oxygen flow rate Heart rate Systolic blood pressure Diastolic blood pressure Provider Name and Address Organization Details Last Updated DateTime 5 162.56 cm 23.7 kg/m2 08982.7 5 g 97.2 [degF] 96 % 96 % 3 L/min 65 /min 110 mm[Hg] 77 mm[Hg] Madelin Pedroray [facility] & [place] 5 10:51:40 Date Recorded Body height Body mass index (BMI) Body weight Body temperature Heart rate Oxygen saturation Oxygen saturation in Arterial blood by Pulse oximetry Systolic blood pressure Diastolic blood pressure Provider Name and Address Organization Details Last Updated DateTime 5 162.56 cm 22.7 kg/m2 14617.8 9 g 97.4 [degF] 72 /min 92 % 92 % 114 mm[Hg] 57 mm[Hg] Hailee Andrews NT [facility] & [place] 5 11:36:33 Social History Question Answer Notes LastModified by Organizat ion Details LastModified Time Tobacco Smoking Status Current Every Day Smoker Completed 06-16-2023 [facility] [place] 08/12/2024 07:07:00 Do You Have An Advance Directive? No Information not available 04/21/2022 What Is Your Level Of Alcohol Consumption? None Information not available 04/21/2022 Are You Blind Or Do You Have Difficulty Seeing? No Information not available 04/21/2022 What Is Your Level Of Caffeine Consumption? Occasional [email or web address] Information not available 06/05/2023 Are You Deaf Or Do You Have Serious Difficulty Hearing? No [email or web address] Information not available 06/05/2023 What Type Of Diet Are You Following? REGULAR Information not available 06/05/2023 Have There Been Any Changes To Your Family Or Social Situation? Yes [email or web address] Information not available 06/05/2023 What Is The Fluoride Status Of Your Home? Fluoridated [email or web address] Information not available 06/05/2023 What Was The Date Of Your Most Recent Tobacco Screening? 07/22/2022 [email or web address] Information not available 07/22/2022 What Is Your Current Pack Years? 30ormorepackye ars [email or web address] Information not available 06/05/2023 Do You Have Any Pets? Yes [email or web address] Information not available 06/05/2023 Do You Have Smoke And Carbon Monoxide Detectors In Your Home? Yes [email or web address] Information not available 06/05/2023 At What Age Did You Start Smoking Tobacco? 17 [email or web address] Information not available 06/05/2023 Are You Passively Exposed To Smoke? No Information not available 04/21/2022 Do You Or Have You Ever Used Smokeless Tobacco? Never Used Smokeless Tobacco Information not available 04/21/2022 How Much Tobacco Do You Smoke? 1 PPD Information not available 04/21/2022 Do You Feel Stressed (tense, Restless, Nervous, Or Anxious, Or Unable To Sleep At Night)? [id number] Information not available 04/21/2022 Do You Use Any Illicit Or Recreational Drugs? No Information not available 04/21/2022 Do You Use Sunscreen Routinely? Yes [email or web address] Information not available 06/05/2023 Has Tobacco Cessation Counseling Been Provided? Yes [email or web address] Information not available 06/05/2023 On What Date Was Tobacco Cessation Counseling Provided? 07/22/2022 [email or web address] Information not available 06/05/2023 How Many Years Have You Smoked Tobacco? 34 [email or web address] Information not available 04/21/2022 Do You Or Have You Ever Used Any Other Forms Of Tobacco Or Nicotine? No [email or web address] Information not available 06/05/2023 Sex: Female Functional Status Question Answer Note LastModified by Organizat ion Details LastModified Time Do you have difficulty walking or climbing stairs? No Information not available 06/05/2023 Do you have transportation difficulties? No [email or web address] Information not available 06/05/2023 Are you able to walk? YESWOREST [email or web address] Information not available 06/05/2023 Do you have difficulty doing errands alone? No [email or web address] Information not available 06/05/2023 Are you able to care for yourself? Yes [email or web address] Information not available 06/05/2023 Do you have difficulty dressing or bathing? No [email or web address] Information not available 06/05/2023 What is your exercise level? Moderate Information not available 04/21/2022 Mental Status Question Answer Note LastModified by Organization D etails LastModified Time Do you have difficulty concentrating, remembering or making decisions? No [email or web address] Information no t available 06/05/2023 Family History Relationship Description Onset Age of this Age Resolved Age Notes LastModified by Organization Details LastModified Time Father Malignant tumor of colon 66 [email or web address] Not available 08/14 11:17:56 Father Chronic obstructive pulmonary disease [email or web address] Not available 09:11:12 Father Hypertensive disorder pt. added direct ly (08/09) [email or web address] Not available 08/10/2023 19:37:25 Mother Malignant tumor of colon [email or web address] Not available 08/14 11:17:56 Mother Chronic obstructive pulmonary disease [email or web address] Not available 2022 12:18:07 Mother Myocardial infarction pt. added direct ly (08/09) [email or web address] Not available 08/10/2023 19:37:00 Mother Hypertensive disorder pt. added direct ly (08/09) [email or web address] Not available 08/10/2023 19:37:25 Sister Chronic obstructive pulmonary disease [email or web address] Not available 2022 12:18:07 Unspecified Relation Malignant neoplasm of ovary Grandm other [email or web address] Not available 09/09/2024 11:17:56 Medical History Condition Response Anxiety Disorder Y Substance Abuse Y Reflux/GERD Y High Cholesterol Y Hypertension Y Depression Y COPD Y Gynecological History Statement/Question Response Abnormal Pap N Date of Last Colonoscopy 05/15/2020 09/16/2020 Sexually Active? Y Menses Monthly N Most Recent Mammogram 10/13/2023 Obstetrics History GPAL:G 0 P 0 0 0 0 Immunizations Vaccine Type Date Status Note Provider Nam e and Address Organization Details Recorded Time Influenza, split virus, quadrivalent, PF 8 completed Not Available [facility] 06/21/2023 15:56:10 Influenza, split virus, quadrivalent, PF 9 completed Not Available [facility] 06/21/2023 15:56:10 Influenza, split virus, trivalent, preservative 7 completed Not Available [facility] 06/21/2023 15:56:10 zoster recombinant 2 completed Not Available [facility] 06/21/2023 15:56:10 Influenza, MDCK, quadrivalent, PF 2 completed Not Available [facility] 06/21/2023 15:56:10 Influenza, split virus, quadrivalent, PF 0 completed Not Available [facility] 06/21/2023 15:56:10 Influenza, split virus, quadrivalent, PF 3 completed Marnie de anda [place] - [facility] - [place] & [place] 01/26/2023 14:35:47 Pneumococcal conjugate PCV20, polysaccharide CEP083 conjugate, adjuvant, PF 3 completed Marnie de anda [place] - [facility] - [place] & [place] 01/26/2023 14:36:39 COVID-19, mRNA, LNP-S, PF, 100 mcg/0.5mL dose or 50 mcg/0.25mL dose 1 completed Not Available [facility] 06/21/2023 15:56:10 COVID-19, mRNA, LNP-S, PF, 100 mcg/0.5mL dose or 50 mcg/0.25mL dose 1 completed Not Available [facility] 06/21/2023 15:56:10 COVID-19, mRNA, LNP-S, PF, 50 mcg/0.5 mL 4 completed Luis Enrique Harman MD [address] , [place], [address], [facility] - [facility] & [place] 02/10/2024 20:04:45 Influenza, split virus, trivalent, preservative 4 completed Luis Enrique Harman MD [address] , [place], [address], [place] - [facility] & [place] 02/10/2024 20:04:45 Past Encounters Encounter ID Performer Location Encounter Start Date Encounter Closed Date Diagnosis/Indication Diagnosis SNOMED-CT Code Diagnosis ICD10 Code Diagnosis Note [id number] Luis Enrique Harman MD [facility] [address] [place] [address] 04/21/2022 09:02:11 04/21/2022 10:20:50 Chronic obstructive pulmonary disease 90920823 J44.9 The patient's current respirator y regimen seems stable. The overall symptom control on a day-to-day basis is stable. There are PFTs on the chart and reviewed. Smoking cessation has also been discussed. No changes to the respirator y regimen are recommende d at this time. Chronic pain 48412884 G8 9.29 Cont with pain management Gastroesop hageal reflux disease 706703053 K21.9 Symptoms are stable and well controlled on the current GERD regimen. There are no signs or symptoms of warning/re d flag concerns. Pt denies: dysphagia, odynophagi a, or blood in stool. If sxs start to worsen or change the pt will RTC. Generalize d anxiety disorder 29377390 F41.1 Stable on current regimen today. Continue the current prescribed regimen with no changes today. Hyperlipidemia 23723578 E78.5 Pt is counselled on routine dietary and lifestyle changes including low fat and low carb diets. Routine lipid panels yearly. Cardiac risk discussed with patient as well today. No changes to lipid regimen today. Pt will work on lifestyle changes to modify risk factors and lipid levels Hypertensive disorder 38 205497 I10 Hypertensi on is well controlled currently; [...] is encouraged . Moderate m ajor depression 126545 F32.1 Continue current regimen; feels stable today Neck pain 32812322 M54.2 Nicotine user 565548732 Z72.0 Hepatitis C screening 41 7949928 Z11.59 [id number] MD Flaca Garrett and Yadira [place] [address] [place] [address] 06/02/2022 10:13:10 06/02/2022 11:34:02 Cellulitis of right upper limb 0012026116 0970406 L03.113 I suspect likely secondary cellulitis of the arm. Reassuranc e given. MOnitor for any systemic sxs that would suggest possible tic born infection. A total of 20 minutes was spent in regard to this patient's visit reviewing labs and/or imaging, reviewing the patients records, conducting a physical examinatio n, preparing the treatment plan, and discussing the treatment plan with its risk and benefits with the patient today. All questions have been answered. [id number] MD Flaca Garrett and Yadira [place] [address] [place] [address] 07/22/2022 09:56:47 07/22/2022 10:44:29 Gynecologic examination 87392873 Z01.419 Chronic ob structive pulmonary disease 46469114 J44.9 The patient's current respirator y regimen seems stable. The overall symptom control on a day-to-day basis is stable. There are PFTs on the chart and reviewed. Smoking cessation has also been discussed. No changes to the respirator y regimen are recommende d at this time. Neck pain 02163051 M54.2 TItrate gabapentin from tid to qid A total of thirty minutes was spent in regard to this patient's visit reviewing labs and/or imaging, reviewing the patients records, conducting a physical examinatio n, preparing the treatment plan, and discussing the treatment plan with its risk and benefits with the patient today. All questions have been answered. Chronic pain 76585527 G8 9.29 Cont with pain management Gastroesop hageal reflux disease 907447883 K21.9 Symptoms are stable and well controlled on the current GERD regimen. There are no signs or symptoms of warning/re d flag concerns. Pt denies: dysphagia, odynophagi a, or blood in stool. If sxs start to worsen or change the pt will RTC. Generalize d anxiety disorder 90891327 F41.1 Stable on current regimen today. Continue the current prescribed regimen with no changes today. Hyperlipidemia 12424007 E78.5 Pt is counselled on routine dietary and lifestyle changes including low fat and low carb diets. Routine lipid panels yearly. Cardiac risk discussed with patient as well today. No changes to lipid regimen today. Pt will work on lifestyle changes to modify risk factors and lipid levels Hypertensive disorder 38 671016 I10 Hypertensi on is well controlled currently; [...] is encouraged . Moderate m ajor depression 090642 F32.1 Continue current regimen; feels stable today [id number] AFSHIN Tim and Yadira m[place]itt [address] [place] [address] 08/02/2022 14:08:08 08/02/2022 14:41:05 Dysuria 76422129 R30.0 Flank pain 521620942 R10 .9 Bronchitis 45632753 J40 Nausea 687395331 R11.0 [id number] AFSHIN Tim and Yadira [place] [address] [place] [address] 08/25/2022 11:22:41 08/25/2022 12:11:33 Acute exacerbation of chronic obstructive pulmonary disease 864525344 J44.1 Flank pain 813506943 R10 .9 [id number] AFSHIN [facility] [address] [place] [address] 10/04/2022 13:34:22 10/04/2022 14:28:31 Ready to stop smoking 887746158 Z72.0 Acute exac erbation of chronic obstructive pulmonary disease 665365913 J44.1 Acute bronchitis 8673383 2 J20.9 Pityriasis versicolor 56 771635 B36.0 [id number] MD Flaca Garrett [facility] [address] [place] [address] 10/25/2022 11:18:12 10/25/2022 12:05:43 Chronic obstructive pulmonary disease 92676593 J44.9 The patient's current respirator y regimen seems stable. The overall symptom control on a day-to-day basis is stable. There are PFTs on the chart and reviewed. Smoking cessation has also been discussed. No changes to the respirator y regimen are recommende d at this time. Neck pain 08282391 M54.2 Stable on current regimen today. Continue the current prescribed regimen with no changes today. A total of thirty minutes was spent in regard to this patient's visit reviewing labs and/or imaging, reviewing the patients records, conducting a physical examinatio n, preparing the treatment plan, and discussing the treatment plan with its risk and benefits with the patient today. All questions have been answered. Chronic pain 82762315 G8 9.29 Cont with pain management Gastroesop hageal reflux disease 478040143 K21.9 Symptoms are stable and well controlled on the current GERD regimen. There are no signs or symptoms of warning/re d flag concerns. Pt denies: dysphagia, odynophagi a, or blood in stool. If sxs start to worsen or change the pt will RTC. Generalize d anxiety disorder 41747652 F41.1 Stable on current regimen today. Continue the current prescribed regimen with no changes today. Hyperlipidemia 74637699 E78.5 Pt is counselled on routine dietary and lifestyle changes including low fat and low carb diets. Routine lipid panels yearly. Cardiac risk discussed with patient as well today. No changes to lipid regimen today. Pt will work on lifestyle changes to modify risk factors and lipid levels Hypertensive disorder 38 784318 I10 Hypertensi on is well controlled currently; [...] is encouraged . Moderate m ajor depression 049507 F32.1 Continue current regimen; feels stable today Acute exac erbation of chronic obstructive pulmonary disease 217929188 J44.1 [id number] Luis Enrique [facility]man [facility] [address] [place] [address] 11/17/2022 13:20:01 11/17/2022 14:13:34 Acute exacerbation of chronic obstructive pulmonary disease 609512302 J44.1 We will continue an additional course of prednisone . She will continue her daily MDI therapy as well as her short-acti ng beta agonist. She has follow-up scheduled with Dr. Nevarez. Of note, we did review the hospital records which included a sputum culture which is now growing moderate levels of E coli with a susceptibi lity profile showing Augmentin should be effective at treating the infection. Given the CT scan findings in her worsening condition now, start Augmentin and continue prednisone . A total of thirty minutes was spent in regard to this patient's visit reviewing labs and/or imaging, reviewing the patients records, conducting a physical examinatio n, preparing the treatment plan, and discussing the treatment plan with its risk and benefits with the patient today. All questions have been answered. Community acquired pneumonia 517972215 J18.9 Candidiasis of mouth 797 28749 B37.0 Chronic ob structive pulmonary disease 71237730 J44.9 The patient's current respirator y regimen seems stable. The overall symptom control on a day-to-day basis is stable. There are PFTs on the chart and reviewed. Smoking cessation has also been discussed. No changes to the respirator y regimen are recommende d at this time. Pneumonia 523924987 J18. 9 [id number] Radhames Tello MD [facility] [address] [facility],[address] [place] [address] 11/25/2022 09:39:37 11/25/2022 10:10:55 Pulmonary emphysema 33209535 J43.9 Patient instructed to continue with the use of Stiolto regularly. Will check full PFTs with [facility]CO to adjust treatment as indicated and to evaluate the severity of the obstructio n. Will refer patient to the pulmonary rehab program for further assessment and management . Patient instructed to call if there is any new symptoms. Dyspnea on exertion 6084 5006 R06.09 Patient recommende d to exercise as tolerated and use her Charlene on a p.r.n. basis and more liberally. 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 Will arrange for the patient to have an annual low-dose CT of the chest for early lung cancer detection. Screening for malignant neoplasm of respiratory tract 173792759 Z12.2 The patient has participat ed in a shared decision making session during which potential risk and benefits of LDCT lung cancer screening were discussed. The patient was informed of the importance of adherence to annual screening, impact of comorbidit ies, the ability/wi llingness to undergo diagnosis and treatment. The patient was informed of the importance of smoking cessation and/or maintainin g smoking abstinence , including the offer of Medicare-c over tobacco cessation counseling services, if applicable . The patient is asymptomat ic (no symptoms such as fever, chest pain, new shortness of breath, new or changing cough, coughing up blood, or unexplaine d significan t weight loss). [id number] Bijan Mccloud MD [facility] [address] [facility] [address] [place] [address] 11/29/2022 12:57:01 11/29/2022 13:48:07 Heartburn 69651436 R12 Family his tory of cancer of colon 255279603 Z80.0 [id number] Ijeoma Nixon PA-C [facility] and Yadira n [address] [place], [place] [address] 12/06/2022 10:09:25 12/06/2022 11:38:37 Cough 95841880 R05.9 Dysuria 75018439 R30.0 Acute exac erbation of chronic obstructive pulmonary disease 403032129 J44.1 [id number] MD Flaca Garrett and [place] [address] 01/26/2023 10:42:01 01/26/2023 11:59:34 Hyperlipidemia 06645091 E78.5 Pt is counselled on routine dietary and lifestyle changes including low fat and low carb diets. Routine lipid panels yearly. Cardiac risk discussed with patient as well today. No changes to lipid regimen today. Pt will work on lifestyle changes to modify risk factors and lipid levels Active immunization 3387 9002 Z23 Chronic ob structive pulmonary disease 06419771 J44.9 The patient's current respirator y regimen seems stable. The overall symptom control on a day-to-day basis is stable. There are PFTs on the chart and reviewed. Smoking cessation has also been discussed. No changes to the respirator y regimen are recommende d at this time. Acute exac erbation of chronic obstructive pulmonary disease 296316945 J44.1 We will continue an additional course of prednisone . She will continue her daily MDI therapy as well as her short-acti ng beta agonist. She has follow-up scheduled with Dr. Nevarez. Of note, we did review the hospital records which included a sputum culture which is now growing moderate levels of E coli with a susceptibi lity profile showing Augmentin should be effective at treating the infection. Given the CT scan findings in her worsening condition now, start Augmentin and continue prednisone . A total of thirty minutes was spent in regard to this patient's visit reviewing labs and/or imaging, reviewing the patients records, conducting a physical examinatio n, preparing the treatment plan, and discussing the treatment plan with its risk and benefits with the patient today. All questions have been answered. Neck pain 17284565 M54.2 Stable on current regimen today. Continue the current prescribed regimen with no changes today. A total of thirty minutes was spent in regard to this patient's visit reviewing labs and/or imaging, reviewing the patients records, conducting a physical examinatio n, preparing the treatment plan, and discussing the treatment plan with its risk and benefits with the patient today. All questions have been answered. Chronic pain 18675579 G8 9.29 Cont with pain management Gastroesop hageal reflux disease 172337290 K21.9 Symptoms are stable and well controlled on the current GERD regimen. There are no signs or symptoms of warning/re d flag concerns. Pt denies: dysphagia, odynophagi a, or blood in stool. If sxs start to worsen or change the pt will RTC. Generalize d anxiety disorder 85763910 F41.1 Stable on current regimen today. Continue the current prescribed regimen with no changes today. Hypertensive disorder 38 379966 I10 Hypertensi on is well controlled currently; [...] is encouraged . Moderate m ajor depression 492626 F32.1 Continue current regimen; feels stable today Fatigue 88794727 R53.83 [id number] Luis Enrique Harman MD [facility] Yadira merritt [address] [place] [address] 02/07/2023 11:57:17 02/07/2023 12:36:19 Acute exacerbation of chronic obstructive pulmonary disease 947394739 J44.1 We will continue an additional course of prednisone . She will continue her daily MDI therapy as well as her short-acti ng beta agonist. She has follow-up scheduled with Dr. Nevarez. Of note, we did review the hospital records which included a sputum culture which is now growing moderate levels of E coli with a susceptibi lity profile showing Augmentin should be effective at treating the infection. Given the CT scan findings in her worsening condition now, start Augmentin and continue prednisone . A total of thirty minutes was spent in regard to this patient's visit reviewing labs and/or imaging, reviewing the patients records, conducting a physical examinatio n, preparing the treatment plan, and discussing the treatment plan with its risk and benefits with the patient today. All questions have been answered. Chronic ob structive pulmonary disease 40432873 J44.9 The patient's current respirator y regimen seems stable. The overall symptom control on a day-to-day basis is stable. There are PFTs on the chart and reviewed. Smoking cessation has also been discussed. No changes to the respirator y regimen are recommende d at this time. [id number] Radhames Tello MD [facility] [address] [facility] [place] [address] 03/30/2023 10:01:31 03/30/2023 10:19:29 Pulmonary emphysema 31518189 J43.9 PFTs with [facility] done in the department recently were reviewed and discussed with the patient, there is evidence of obstructio n with decrease in FEV1 down to 52% predicted. Patient instructed to continue with the use of Stiolto daily. Patient is unable to complete the pulmonary rehab program due to her work commitment .Patient instructed to call if there is any new symptoms. Dyspnea on exertion 6084 5006 R06.09 Patient recommende d to exercise as tolerated and use her Charlene on a p.r.n. basis and more liberally. Tobacco de pendence caused by cigarettes 1980760226 2479979 F17.210 Patient counseled extensivel y to remain without smoking and will continue follow this up.Patient to have her low-dose CT of the chest in October 2023 as scheduled. Screening for malignant neoplasm of respiratory tract 703852207 Z12.2 The patient has participat ed in a shared decision making session during which potential risk and benefits of LDCT lung cancer screening were discussed. The patient was informed of the importance of adherence to annual screening, impact of comorbidit ies, the ability/wi llingness to undergo diagnosis and treatment. The patient was informed of the importance of smoking cessation and/or maintainin g smoking abstinence , including the offer of Medicare-c over tobacco cessation counseling services, if applicable . The patient is asymptomat ic (no symptoms such as fever, chest pain, new shortness of breath, new or changing cough, coughing up blood, or unexplaine d significan t weight loss). Immunization advised 310 [id number] Z71.9 Patient is up-to-date on her flu vaccine for this season. Patient recommende d to receive COVID-19 vaccinatio n from her pharmacy. [id number] Luis Enrique Harman MD [facility] [address] [facility] [place] [address] 04/27/2023 10:56:12 04/27/2023 11:55:00 Neck pain 19723119 M54.2 Stable on current regimen today. Continue the current prescribed regimen with no changes today. Continue with mUniswamey ; refills on gabapentin today A total of thirty minutes was spent in regard to this patient's visit reviewing labs and/or imaging, reviewing the patients records, conducting a physical examinatio n, preparing the treatment plan, and discussing the treatment plan with its risk and benefits with the patient today. All questions have been answered. Tobacco de pendence syndrome 89881923 F17.210 Hyperlipidemia 07529713 E78.5 Pt is counselled on routine dietary and lifestyle changes including low fat and low carb diets. Routine lipid panels yearly. Cardiac risk discussed with patient as well today. No changes to lipid regimen today. Pt will work on lifestyle changes to modify risk factors and lipid levels Chronic ob structive pulmonary disease 90746641 J44.9 The patient's current respirator y regimen seems stable. The overall symptom control on a day-to-day basis is stable. There are PFTs on the chart and reviewed. Smoking cessation has also been discussed. No changes to the respirator y regimen are recommende d at this time. Chronic pain 44492845 G8 9.29 Cont with pain management , now with muniswamey Gastroesop hageal reflux disease 962426003 K21.9 Symptoms are stable and well controlled on the current GERD regimen. There are no signs or symptoms of warning/re d flag concerns. Pt denies: dysphagia, odynophagi a, or blood in stool. If sxs start to worsen or change the pt will RTC. Generalize d anxiety disorder 74722355 F41.1 Stable on current regimen today. Continue the current prescribed regimen with no changes today. Hypertensive disorder 38 081248 I10 Hypertensi on is well controlled currently; [...] is encouraged . 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.1 [id number] Galindo Dash MD [facility] [address] [facility],it e [address] [place] [address] 05/22/2023 08:17:38 05/22/2023 10:01:46 Spasmodic torticollis 84715098 G24.3 [id number] Galindo Dash MD [facility] [address] [facility],[address] [address] 06/05/2023 08:03:14 06/05/2023 09:06:08 Spasmodic torticollis 34328997 G24.3 [id number] Galindo Dash MD [facility] [address] [address] 06/22/2023 13:49:42 06/22/2023 15:16:37 Cervico-occipital neuralgia 44966316 M54.81 Spasmodic torticollis 74 096848 G24.3 Radicular pain 06791022 M54.10 Myofascial pain 06391437 9 M79.10 Post-leroy ectomy syndrome 31904605 M96.1 [id number] Luis Enrique Harman MD [facility] [place] [address] [facility] [place] [address] 07/01/2023 09:04:25 07/01/2023 09:35:30 Acute exacerbation of chronic obstructive pulmonary disease 161747781 J44.1 We will continue an additional course of prednisone . She will continue her daily MDI therapy as well as her short-acti ng beta agonist. She has follow-up scheduled with Dr. Nevarez. Of note, we did review the hospital records which included a sputum culture which is now growing moderate levels of E coli with a susceptibi lity profile showing Augmentin should be effective at treating the infection. Given the CT scan findings in her worsening condition now, start Augmentin and continue prednisone . A total of thirty minutes was spent in regard to this patient's visit reviewing labs and/or imaging, reviewing the patients records, conducting a physical examinatio n, preparing the treatment plan, and discussing the treatment plan with its risk and benefits with the patient today. All questions have been answered. Precordial pain 48500456 R07.2 [id number] Luis Enrique Harman MD [facility] and [address] [place] [address] 07/28/2023 10:37:34 07/28/2023 12:19:33 Acute exacerbation of chronic obstructive pulmonary disease 940236685 J44.1 We will continue an additional course of prednisone . She will continue her daily MDI therapy as well as her short-acti ng beta agonist. She has follow-up scheduled with Dr. Nevarez. Of note, we did review the hospital records which included a sputum culture which is now growing moderate levels of E coli with a susceptibi lity profile showing Augmentin should be effective at treating the infection. Given the CT scan findings in her worsening condition now, start Augmentin and continue prednisone . A total of thirty minutes was spent in regard to this patient's visit reviewing labs and/or imaging, reviewing the patients records, conducting a physical examinatio n, preparing the treatment plan, and discussing the treatment plan with its risk and benefits with the patient today. All questions have been answered. Neck pain 71556450 M54.2 I have spoke directly with Felicitas . He reports that the weakness is likely very normal with botox injections and has provided reassuranc e to the pt this week. He asked me to let the pt know he will call her later today with a plan. A total of thirty minutes was spent in regard to this patient's visit reviewing labs and/or imaging, reviewing the patients records, conducting a physical examinatio n, preparing the treatment plan, and discussing the treatment plan with its risk and benefits with the patient today. All questions have been answered. [id number] Galindo Dash MD [facility] [address] [facility],it e [address] [place] [address] 07/13/2023 09:46:38 07/13/2023 11:13:21 Spasmodic torticollis 43018323 G24.3 [id number] Galindo Dash MD [facility] [address] [place] [address] [place] [address] 07/26/2023 13:41:11 07/26/2023 14:08:22 Cervico-occipital neuralgia 14027880 M54.81 Spasmodic torticollis 74 877814 G24.3 Radicular pain 32871912 M54.10 Myofascial pain 27016062 9 M79.10 Post-leroy ectomy syndrome 21492397 M96.1 [id number] CONRAD KAPLAN PA-C [facility] [address] 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 Postoperative pain 75124 9007 G89.18 Neck pain 55523384 M54.2 [id number] Galindo Dash MD [facility] [facility] [place] [address] 08/21/2023 14:25:52 08/21/2023 15:34:39 Cervico-occipital neuralgia 46311966 M54.81 Spasmodic torticollis 74 875878 G24.3 Radicular pain 50074847 M54.10 Myofascial pain 75790153 9 M79.10 Post-leroy ectomy syndrome 34020039 M96.1 Postoperative pain 41215 9007 G89.18 Neck pain 14830200 M54.2 [id number] Galindo Dash MD [facility] [address] [facility],[address] [place] [address] 08/22/2023 15:07:28 08/22/2023 15:29:43 Spinal enthesopathy of cervical region 2185809313 35157 M46.02 [id number] Luis Enrique Harman MD [facility] [address] [place] [address] 10/03/2023 14:11:53 10/03/2023 15:53:58 Neck pain 48779100 M54.2 Stable on current regimen today. Continue the current prescribed regimen with no changes today. Continue with mUniswamey ; refills on gabapentin today A total of thirty minutes was spent in regard to this patient's visit reviewing labs and/or imaging, reviewing the patients records, conducting a physical examinatio n, preparing the treatment plan, and discussing the treatment plan with its risk and benefits with the patient today. All questions have been answered. Tobacco de pendence syndrome 21154678 F17.210 LDCT Current Hyperlipidemia 48976085 E78.5 Pt is counselled on routine dietary and lifestyle changes including low fat and low carb diets. Routine lipid panels yearly. Cardiac risk discussed with patient as well today. No changes to lipid regimen today. Pt will work on lifestyle changes to modify risk factors and lipid levels Chronic ob structive pulmonary disease 81097885 J44.9 The patient's current respirator y regimen seems progressiv e; Insurance denied trelegy; we will try open triple with stiolto and flovent. Chronic pain 32006480 G8 9.29 Cont with pain management , now with muniswamey Gastroesop hageal reflux disease 986902661 K21.9 Symptoms are stable and well controlled on the current GERD regimen. There are no signs or symptoms of warning/re d flag concerns. Pt denies: dysphagia, odynophagi a, or blood in stool. If sxs start to worsen or change the pt will RTC. Generalize d anxiety disorder 05976892 F41.1 Stable on current regimen today. Continue the current prescribed regimen with no changes today. Hypertensive disorder 38 341717 I10 Hypertensi on is well controlled currently; [...] is encouraged . Moderate m ajor depression 317270 F32.1 Continue current regimen; feels stable today Screening mammography 24 863359 Z12.31 Acute exac erbation of chronic obstructive pulmonary disease 480200860 J44.1 A total of thirty minutes was spent in regard to this patient's visit reviewing labs and/or imaging, reviewing the patients records, conducting a physical examinatio n, preparing the treatment plan, and discussing the treatment plan with its risk and benefits with the patient today. All questions have been answered. Chiari malformation 2531 99673 Q07.00 stable in pain managment s/p surgery in the remote past [id number] CONRAD KAPLAN PA-C [facility] [address] [place] [address] 10/13/2023 12:20:29 10/13/2023 13:11:30 Cervico-occipital neuralgia 30093910 M54.81 Spasmodic torticollis 74 444509 G24.3 Radicular pain 32503496 M54.10 Myofascial pain 66819019 9 M79.10 Post-leroy ectomy syndrome 78346017 M96.1 Postoperative pain 07183 9007 G89.18 Neck pain 32739366 M54.2 [id number] MD Flaca [facility] [address] [place] [address] 02/09/2024 09:57:00 02/09/2024 11:17:05 Screening for malignant neoplasm of colon 579114926 Z12.11 Neck pain 86733280 M54.2 Stable on current regimen today. Continue the current prescribed regimen with no changes today. Continue with Dr. Villanueva at this time; planning spinal cord stimulator . Meds on chart; no refills needed. Reviewed Bux notes. A total of thirty minutes was spent in regard to this patient's visit reviewing labs and/or imaging, reviewing the patients records, conducting a physical examinatio n, preparing the treatment plan, and discussing the treatment plan with its risk and benefits with the patient today. All questions have been answered. Tobacco de pendence syndrome 06709336 F17.210 LDCT Current 06/2024 due; follows with pulm to have this done Hyperlipidemia 57112494 E78.5 Pt is counselled on routine dietary and lifestyle changes including low fat and low carb diets. Routine lipid panels yearly. Cardiac risk discussed with patient as well today. No changes to lipid regimen today. Pt will work on lifestyle changes to modify risk factors and lipid levels Chronic ob structive pulmonary disease 25682739 J44.9 The patient's current respirator y regimen seems progressiv e; Insurance denied trelegy; we will try open triple with stiolto and flovent. Reviewed Pulm notes Chronic pain 60718485 G8 9.29 Cont with pain management , now with Bux Gastroesop hageal reflux disease 345472433 K21.9 Symptoms are stable and well controlled on the current GERD regimen. There are no signs or symptoms of warning/re d flag concerns. Pt denies: dysphagia, odynophagi a, or blood in stool. If sxs start to worsen or change the pt will RTC. Generalize d anxiety disorder 72920476 F41.1 Stable on current regimen today. Continue the current prescribed regimen with no changes today. Hypertensive disorder 38 733357 I10 Hypertensi on is well controlled currently; [...] is encouraged . Moderate m ajor depression 048143 F32.1 Continue current regimen; feels stable today Screening mammography 24 792454 Z12.31 Current 2023 Chiari malformation 2531 71616 Q07.00 stable in pain managment s/p surgery in the remote past Active immunization 3387 9002 Z23 [id number] [facility] [address] [place] [address] [place] [address] 06/10/2024 11:25:56 06/10/2024 12:09:37 Neck pain 57043945 M54.2 Stable on current regimen today. Continue the current prescribed regimen with no changes today. Continue with Dr. Villanueva at this time; planning spinal cord stimulator . Meds on chart; no refills needed. Reviewed Bux notes. A total of thirty minutes was spent in regard to this patient's visit reviewing labs and/or imaging, reviewing the patients records, conducting a physical examinatio n, preparing the treatment plan, and discussing the treatment plan with its risk and benefits with the patient today. All questions have been answered. Screening for malignant neoplasm of colon 493280544 Z12.11 scheduled 07/12/2024 Hyperlipidemia 60120618 E78.5 Pt is counselled on routine dietary and lifestyle changes including low fat and low carb diets. Routine lipid panels yearly. Cardiac risk discussed with patient as well today. No changes to lipid regimen today. Pt will work on lifestyle changes to modify risk factors and lipid levels Chronic ob structive pulmonary disease 96899770 J44.9 The patient's current respirator y regimen seems progressiv e; Insurance denied trelegy; we will try open triple with stiolto and flovent. Reviewed Pulm notes Needs to schedule FU with PULM and to ensure CT scan has been scheduled. Chronic pain 24284431 G8 9.29 Cont with pain management , now with Bux Gastroesop hageal reflux disease 509115337 K21.9 Symptoms are stable and well controlled on the current GERD regimen. There are no signs or symptoms of warning/re d flag concerns. Pt denies: dysphagia, odynophagi a, or blood in stool. If sxs start to worsen or change the pt will RTC. Generalize d anxiety disorder 66762999 F41.1 Stable on current regimen today. Continue the current prescribed regimen with no changes today. Hypertensive disorder 38 212496 I10 Hypertensi on is well controlled currently; [...] is encouraged . Moderate m ajor depression 223177 F32.1 Continue current regimen; feels stable today Screening mammography 24 074904 Z12.31 Current 2023 Chiari malformation 2531 45498 Q07.00 stable in pain managment s/p surgery in the remote past Cigarette smoker 2835222 7 F17.210 Following with PULM, DR. Mccloud.Per note she is ordered this test for 2.2024 Acute exac erbation of chronic obstructive pulmonary disease 094719336 J44.1 A total of thirty minutes was spent in regard to this patient's visit reviewing labs and/or imaging, reviewing the patients records, conducting a physical examinatio n, preparing the treatment plan, and discussing the treatment plan with its risk and benefits with the patient today. All questions have been answered. [id number] MD Flaca Garrett and [place] [address] [address] [place] [address] 07/03/2024 10:44:05 07/03/2024 11:21:15 Long-term drug therapy 757029424 Z79.891 Hypokalemia 87100348 E87 .6 We will send the patient for basic metabolic panel today [facility]. Pending the results, she may need some additional doses of the potassium. Her daily doses 20 mEq daily. She will restart and continue this daily. If needed, we can do 20 mEq twice a day over the next 24-48 hours to get her potassium level in the normal range for the surgery planned on Monday. I did give her a standing order for a BMP to be done today and tomorrow if needed. [id number] MD Flaca Garrett and [address] [place] [address] 09/09/2024 11:17:38 09/09/2024 12:03:44 Long-term current use of drug therapy 723214487 Z79.899 Acute exac erbation of chronic obstructive pulmonary disease 608297225 J44.1 A total of thirty minutes was spent in regard to this patient's visit reviewing labs and/or imaging, reviewing the patients records, conducting a physical examinatio n, preparing the treatment plan, and discussing the treatment plan with its risk and benefits with the patient today. All questions have been answered. Hyperlipidemia 99864794 E78.5 Pt is counselled on routine dietary and lifestyle changes including low fat and low carb diets. Routine lipid panels yearly. Cardiac risk discussed with patient as well today. No changes to lipid regimen today. Pt will work on lifestyle changes to modify risk factors and lipid levels---I ntolerant to [place] Neck pain 61430192 M54.2 Stable on current regimen today. Continue [...] have been answered. Gastroesop hageal reflux disease 159193584 K21.9 Symptoms are stable and well controlled on the current GERD regimen. There are no signs or symptoms of warning/re d flag concerns. Pt denies: dysphagia, odynophagi a, or blood in stool. If sxs start to worsen or change the pt will RTC. Generalize d anxiety disorder 61979121 F41.1 Stable on current regimen today. Continue the current prescribed regimen with no changes today. Hypertensive disorder 38 267584 I10 Hypertensi on is well controlled currently; [...] is encouraged . Moderate m ajor depression 508177 F32.1 Continue current regimen; feels stable today Opioid dep endence in remission 322024902 F11.21 Health Concerns Section Related Observation LastModified by Organization Detai ls LastModified Time None Recorded Concern Status LastModified by Organization Details LastModified Time None Recorded Advance Directives Directive N: Payers Insurance Date Sequence Insurance Name Policy Number Policy Bangura Covered Member ID Bangura Member ID Guarantor Name 09/06/2024 1 [facility] [place] (MEDICAID HMO) Jeff Low [id number] Jeff Low 08/16/2023 [facility] [id number] Jeff Low Notes Date Note Type Note Provider Name and Address Organization Details Recorded Time 4 text/html The patient presents today via televideo nearly 2 months S/P TPI of the bilateral cervical region, including trapezius and SCM. The patient reports experiencing significant improvement in pain and function of nearly 100%. The patient states that she is happy with the success of the procedure. Today the pain level is a 6/10. CONRAD KAPLAN PA-C [address], [place], [address], [place] - [place] - [place] & [place] 10/13/2023 14:01:56 4 text/html Here for routine FU:1.) Chronic Pain/neck pain/back Pain: History of Chiari Malformation Type 1 with repair/decompression and C1 Laminectomy 2015. Has been on gabapentin prescribed by Dr. Alfredo. Was seen by NS at in 09/2021; NS felt no neurosurgical intervention needed, referred to neurology for RUBIO, PT, and Interventional pain. Has seen interventional pain and have done some injections as well. Has FU with inv Pain.--MRI C-spine--No specific changes--Referred back to NS at --MRI Brain--NormalCurrently in methadone maintenance clinic for opioid use and cocaine use. 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 In [facility] [place]. Main office in [place], but see's them here. Has been back [...] --> Trigger points, botox injections.--was following with pain--Missed an apt with , then they didn't want to see her back--has now [facility] and followed there for a while Now with Dr. Villanueva in [facility]. Is planning trial of spinal cord [...] has since . Due for repeat colonoscopy 02/2024 3.) HTN: No known CAD. On HCTZ [...] chest 11/2022, LDCT Sxs not good, Dr. Tello not longer in [place]. On Stiolto and insurance in past would not cover trelegy; not on any ICS. Feels currently that she is having worsened productive cough, chest congestion, wheezing and SOA. PUL NOTE 4Assessment & PlanDiagnoses and all orders for this visit:1. Personal history of tobacco use, presenting hazards to health (Primary)2. Chronic obstructive pulmonary disease with acute exacerbation- Respiratory Culture - Sputum, CoughOther orders- predniSONE (DELTASONE) 10 MG tablet; Take 4 tabs daily x 3 days, then take 3 tabs daily x 3 days, then take 2 tabs daily x 3 days, then take 1 tab daily x 3 days Dispense: 31 tablet; Refill: 0- amoxicillin-clavulanate (AUGMENTIN) 875-125 MG per tablet; Take 1 tablet by mouth 2 (Two) Times a Day. Dispense: 14 tablet; Refill: 0- Stiolto Respimat 2.5-2.5 MCG/ACT aerosol solution inhaler; Inhale 2 puffs Daily. Dispense: 4 g; Refill: 11- fluticasone (FLOVENT HFA) 110 MCG/ACT inhaler; Inhale 2 puffs 2 (Two) Times a Day. Dispense: 12 g; Refill: 11Discussion:Ms. Low is a 53yo F who is followed for COPD.1. Stage 2 COPD- Continue Stiolto and Flovent. Insurance does not cover triple therapy. Refills sent.- Continue Albuterol as needed.- Alpha-1 kit was MM.- Treat for an exacerbation today.- Recheck a sputum culture.2. Chronic Respiratory Failure- Continue supplemental oxygen at 3L nasal cannula.3. Tobacco Dependence- Quit smoking approximately 5 years ago. 20pk/yr history prior to quitting.- Low-dose CT chest for lung cancer screening will be due again in June 2024. This has already been ordered.4. Klebsiella Pneumonia- Present on sputum culture from October 2023 and treated with a course of Augmentin based on sensitivities.- Recheck a sputum today.5. Possible URBANO- In-lab sleep study pending for 02/04.Follow up in 3 months.Jeff Low reports that she quit smoking about 5 years ago. Her smoking use included cigarettes. She started smoking about 20 years ago. She has a 14.6 pack-year smoking history. She has never used smokeless tobacco. FU 12.4.4CT Due 06/2024 5.) LISA: On Loratadine. Chuck this well. Sx stable.6.) HMS:--Colon 02/2019--Normal due 02/2024;--Mammogram: 05/2022. 09/2023--PAP: No prior ROMAN; no period in years. Cannot recall the PAP. Agreeable to refer to [employer] [facility].--LDCT 04/2022, 11/2022, 06/2023--ordered by Elisha7.) Depression: ON sertraline 50mg; This was titrated not too long ago. Feels this dose is a bit more helpful. No concerns today. Denies RADHA Harman MD [address] [facility], [place], [address], [place] - [place] & [place] 02/10/2024 20:05:59 5 text/html Here for routine FU:1.) Chronic Pain/neck pain/back Pain: History of Chiari Malformation Type 1 with repair/decompression and C1 Laminectomy 2015. Has been on gabapentin prescribed by Dr. Alfredo. Was seen by NS at in 09/2021; NS felt no neurosurgical intervention needed, referred to neurology for RUBIO, PT, and Interventional pain. Has seen interventional pain and have done some injections as well. Has FU with inv Pain.--MRI C-spine--No specific changes--Referred back to NS at --MRI Brain--NormalCurrently in methadone maintenance clinic for opioid use and cocaine use. 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 In [facility] [place]. Main office in [place], but see's them here. Has been back [...] --> Trigger points, botox injections.--was following with pain--Missed an apt with , then they didn't want to see her back--has now referred [facility] and followed there for a while Now with Dr. Villanueva in [facility]. Is planning trial of spinal cord [...] Due for repeat colonoscopy and scheduled now 07/12/2024. 3.) HTN: No known CAD. On HCTZ [...] chest 11/2022, LDCT Sxs not good, Dr. Tello not longer in [place]. On Stiolto and insurance in past would not cover trelegy; not on any ICS. Feels currently that she is having worsened productive cough, chest congestion, wheezing and SOA. PResent x 1 week PUL NOTE iscussion:Ms. Low is a 53yo F who is followed for COPD.1. Stage 2 COPD- Continue Stiolto and resume Flovent. Insurance does not cover triple therapy. Refills sent.- Continue Duonebs as needed.- Alpha-1 kit was MM.- Continues to have multiple exacerbations despite inhaler therapy. We will start Azithromycin 500mg MWF to try and help prevent exacerbations. We will also check eosinophil count and IgE level to see if she may qualify for biologic therapy.- Start Mucomyst nebs twice daily when mucous is thick.2. Chronic Respiratory Failure- Continue supplemental oxygen at 3L nasal cannula.3. Tobacco Dependence- Quit smoking approximately 5 years ago. 20pk/yr history prior to quitting.- Low-dose CT chest for lung cancer screening will be due again in June 2024. This has already been ordered.4. Klebsiella Pneumonia- Present on sputum culture from October 2023 and treated with a course of Augmentin based on sensitivities.- Repeat sputum culture in January 2024 was negative.5. Possible URBANO- In-lab sleep study in January 2024 was negative sleep apnea.- There were no oxygen desaturations on the patient's 3L.Follow up in 2 months.Jeff Low reports that she quit smoking about 5 years ago. Her smoking use included cigarettes. She started smoking about 20 years ago. She has a 14.6 pack-year smoking history. She has never used smokeless tobacco.Alida Mccloud, DOPulmonary and Critical Care MedicineNote Electronically Signed FU 12.4.T Due 06/2024 5.) LISA: On Loratadine. Chuck this well. Sx stable.6.) HMS:--Colon 02/2019--Normal; scheduled 07/12/2024--Mammogram: 05/2022. 09/2023--PAP: No prior ROMAN; no period in years. Cannot recall the PAP. Agreeable to refer to AUTOMOBILE BODY REPAIRER HELPER.--LDCT 04/2022, 11/2022, 06/2023-- due now and to be ordered by PUL 7.) Depression: ON sertraline 50mg; This was titrated not too long ago. Feels this dose is a bit more helpful. No concerns today. Denies SI 8.) HL: FLP LDL 170+ 01/2024. Tried atorvastatin and this made her dizzy. Agreeable to try alternate medicine. Luis Enrique Harman MD [address], [place], [address], [place] - [place] - [place] & [place] 06/10/2024 12:07:56 5 text/html Jeff garcía is a 54-year-old lady who is here today to follow-up on hypokalemia seen on preoperative labs in preparation for spinal cord stimulator. Patient typically takes potassium 20 mEq daily. This is to combat the hypokalemia that is thought secondary to her hydrochlorothiazide. Patient states she discontinue the potassium about 6 weeks ago on her own and has not been taking the medication routinely. She has felt well. She then presented to [facility] for preoperative labs and was found to have a potassium of 2.7. This was yesterday. She went home and took a 20 mEq potassium last night and she took a 20 mEq potassium this morning. Patient is scheduled for the spinal cord stimulator on Monday, but has to have potassium in normal range. She is asymptomatic today. Luis Enrique Harman MD [address] [facility], [place], [address], [place] - [place] - [place] & [place] 07/03/2024 11:23:50 5 text/html Jeff Low is a 54-year-old female who presents for a medication follow-up. Recently, she experienced symptoms after her son brought home an illness, which she and her contracted. She was on antibiotics prescribed by her lung doctor but got sick while on them. She visited Dr. Bowers, who attributed her symptoms to allergies, possibly due to nearby soybean spraying. She visited her vice president corporate communications on 08/26, who restarted Zithromax (Monday, Monday, [...] some injections as well. Has FU with [facility] Pain.--MRI C-spine--No specific changes--Referred back to NS at --MRI Brain--NormalCurrently in methadone maintenance clinic for opioid use and cocaine use. 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 In [facility] here in [place]. Main office in [place], but see's them here. Has been back [...] following with [facility]--Missed an apt with , then they didn't want to see her back--has now referred to [facility] and followed there for a while Now with Dr. Villanueva in [facility]. Is planning trial of spinal cord [...] chest 11/2022, LDCT Sxs not good, Dr. Tello not longer in [place]. On Stiolto and [...] Exacerbation Suppression Dispense: 12 tablet; Refill: 6- amoxicillin-clavulanate (AUGMENTIN) 875-125 MG per tablet; Take 1 [...] recall the PAP. Agreeable to refer to AUTOMOBILE BODY REPAIRER HELPER.--LDCT 04/2022, 11/2022, 06/2023-- due now and to [...] any statin drug. Luis Enrique Harman MD [address], [place], [address], [facility] - [place] - [place] & [place] 09/09/2024 12:03:14 OBGyn Episode No OBEpisode recorded.
[2024-09-20 13:43] VITALS: BP 101/59; PULSE 60; RESP 16; TEMP 36.4; O2SAT 95; BMI 22.3
--- NOTE | 2024-09-20 14:04 | A.OFFVIS_ITS ---
[facility] Disclaimer: The information contained in this section may have been updated after the patient was seen, as this information can be updated by other users. Medical History Spinal enthesopathy of cervical region Chiari malformation GERD (gastroesophageal reflux disease) COPD (chronic obstructive pulmonary disease) Pulmonary emphysema HTN (hypertension) Syringomyelia Spasmodic torticollis History of substance abuse Anxiety Depression HLD (hyperlipidemia) Surgical History History of lithotripsy History of neck surgery H/O right knee surgery Hx of cholecystectomy Hx of colonoscopy Family History Other COPD (chronic obstructive pulmonary disease) Colon cancer Heart attack Hypertension Ovary cancer Social History Smoking Status: Current some day smoker alcohol intake: former substance use type: former substance user current occupational status: other Travel in the last 8 weeks?: None PM Subjective & Objective Subjective Subjective:: Patient is a pleasant 54-year-old female who presents today for 1 month follow- up. Today she rates her pain a 3 out of 10. Patient denies any new falls or injuries. She does state that she was under the weather pretty significantly here recently and is still trying to recover. Patient does have a longstanding history of significant COPD and states that she always feels like it always ends up getting into her lungs. Patient states her spinal cord stimulator is overall doing well. She does feel like it could use a little bit more tweaking however states that she is still very impressed with how well it is done. Patient is prescribed compounded cream however states that she thinks she is out of this medication. Patient does have some complaints of feeling dizzy however this is not anything new and does feel like her being recently sick has played a role as well. Her Ghanshyam has been reviewed and is appropriate. Review of Systems: General: No recent weight changes, no fever, no sleep disturbances Respiratory: No cough, no shortness of air, no recurring pulmonary infections Cardiovascular/peripheral vascular: No chest pain, no palpitations, no edema, no shortness of breath Gastrointestinal: No new onset incontinence, normal bowel movements reported Genitourinary: No new onset incontinence Musculoskeletal: Mid back pain Psychiatric: [Normal mood/affect] Neurological: [Denies weakness in extremities], [denies balance issues] Pain at rest (0-10 scale): 3 Objective Objective:: Physical Exam: General: Alert and oriented x3, no acute distress, pleasant and cooperative Lungs: Respirations even and unlabored, symmetrical chest expansion Eyes: PERRL Musculoskeletal: Flexion and extension of lumbar [spine] somewhat guarded secondary to pain, [antalgic gait noted] Neurological: Speech clear, no gross sensory deficit Has patient had previous pain injection?: No Conservative treatment options previously tried: Home exercise plan Length of treatment: Longer than 12 weeks Meds Home Medications and Allergies Home Medications ?Medication ?Instructions ?Recorded ?Confirmed ?Type cyclobenzaprine 10 mg tablet 10 mg PO TID PRN Pain 12/28/23 09/20/24 History fluticasone propionate 110 2 puff inhalation BID Breathing 12/28/23 09/20/24 History mcg/actuation HFA aerosol inhaler Problems gabapentin 800 mg tablet 800 mg PO QID Pain 12/28/23 09/20/24 History hydrochlorothiazide 50 mg tablet 50 mg PO DAILY Fluid 12/28/23 09/20/24 History lansoprazole 30 mg capsule,delayed 30 mg PO DAILY . 12/28/23 09/20/24 History release loratadine 10 mg tablet 10 mg PO DAILY ALLERGIES 12/28/23 09/20/24 History methadone 5 mg tablet 5 mg PO DAILY 12/28/23 09/20/24 History sertraline 50 mg tablet 50 mg PO DAILY MOOD 12/28/23 09/20/24 History tiotropium 2.5 mcg-olodaterol 2.5 1 inh inhalation DIRECTED 12/28/23 09/20/24 History mcg/actuation mist for inhalation Breathing Problems (Stiolto Respimat) albuterol sulfate 1.25 mg/3 mL 1.25 mg inhalation QID PRN Asthma 07/02/24 09/20/24 History solution for nebulization potassium chloride 20 mEq 20 meq PO DAILY 07/02/24 09/20/24 History tablet,extended release(part/cryst) New Prescriptions to Start Prescriptions: Allergies Allergy/AdvReac Type Severity Reaction Status Date / Time nitrofurantoin Allergy Hives Verified 08/30/24 11:40 Assessment and Plan *Assessment and plan (1) Degenerative disc disease, cervical: Status: Acute Category: Medical Code(s): M50.30 - Other cervical disc degeneration, unspecified cervical region (2) Cervical radiculopathy: Status: Acute Category: Medical Code(s): M54.12 - Radiculopathy, cervical region (3) Chiari malformation: Status: Acute Category: Medical Plan I did discuss with the patient that I will make sure she has refills on her compounded cream I will also reach out to [employer] to see if they can be present at her 2-week follow-up appointment for additional reprogramming of her device. Patient agrees with this plan of care. Patient has been instructed to contact the clinic with any concerns before the next appointment. Dr. Villanueva has reviewed this note and agrees with this plan of care. This note was dictated using voice recognition software and make contain errors or omissions. All injections are used with Lidocaine, Bupivacaine and dexamethasone. Occasionally urine drug screen is needed to verify patient's compliance with our office pain contract. This is ordered based off specific treatments related to chronic pain with the potential to abuse certain medications.
== END 2024-09-20 23:59 | disposition home or self-care (01) ==
LOC: SC.PAIN 13:35
PROVIDERS: PCP Pediatrics; Visit Provider Nurse Practitioner Family
DX: M50.10 Cervical disc disorder with radiculopathy, unspecified cervical region (principal); F17.200 Nicotine dependence, unspecified, uncomplicated
CPT/HCPCS: 99212; G0463

== ENCOUNTER 2025-01-01 10:45 | Outpatient (POV) | payer MEDICAID, SELFPAY ==
--- OUTSIDE RECORDS SUMMARY | 2023-10-18 08:09 | XMS_ITS | Encounter Summary ---
[facility] [address] [place] [id number] Care Team Providers Care Leadlighter Name Role Phone Luis Enrique Harman MD Primary Care Provider [phone] Encounter Details Date Type Department Care Team (Late st Contact Info) Description 10/18/2023 8:09 AM EDT Hospital Encounter [facility] PULMONARY & CRITICAL CARE MEDICINE [address] [place] [address] Social History Tobacco Use Types Packs/Day Years Used Date Smoking Tobacco: Former Cigarettes 0.9 24 0 10/02/1999 - 10/02/2023 Smokeless Tobacco: Never Alcohol Use Standard Drinks/Week Comments Never 0 (1 standard drink = 0.6 oz pur e alcohol) Comments Unknown Sex and Gender Information Value Date Recorded Sex Assigned at Female 08/22/2024 7:53 AM EDT Legal Sex Female 10:51 AM EDT Gender Identity Not on file Sexual Orientation Straight 08/22/2024 7: 53 AM EDT documented as of this encounter Plan of Treatment Upcoming Encounters Date Type Department Care Team (Late st Contact Info) Description 03/25/2025 10:00 AM EST Office Visit [facility] PULMONARY & CRITICAL CARE MEDICINE [address] [place] [address] 03/25/2025 10:30 AM EST Office Visit [facility] PULMONARY & CRITICAL CARE MEDICINE [address] [place] [address] Alyssa Blackmon, CLAUDY [address] [place] [address] Pending Results Name Type Priority Associated Diagnoses Date /Time XR Chest PA & Lateral Imaging Routine SOB (shortness of breath) 10/18/2023 8:36 AM EDT documented as of this encounter Visit Diagnoses Not on filedocumented in this encounter Care Teams Leadlighter Relationship Specialty Start Date End Date Luis Enrique Harman MD [address] [place] [address] PCP - General Internal Medicine 10/05/23 documented as of this encounter
--- OUTSIDE RECORDS SUMMARY | 2024-02-05 20:00 | XMS_ITS | Encounter Summary ---
[facility] Address [address] [place] [id number] Care Team Providers Care Bottom Finisher Name Role Phone Luis Enrique Harman MD Primary Care Provider [phone] Reason for Referral * Medical Care (Routine) - Closed Specialty Diagnoses / Procedures Referred By Contac t Referred To Contact Sleep Medicine Diagnoses URBANO (obstructive sleep apnea) Procedures Polysomnography 4 or More Parameters Missy De APRN [address] [place] [address] Phone: tel: fax: [facility] [address] [address] Phone: tel: fax: Referral ID Status Reason Start Date Expiration Date Visits Re quested Visits Authorized [id number] Closed 12/27/2023 03/27/2024 1 1 Reason for Visit * Medical Care (Routine) - Closed Specialty Diagnoses / Procedures Referred By Contac t Referred To Contact Sleep Medicine Diagnoses URBANO (obstructive sleep apnea) Procedures Polysomnography 4 or More Parameters Missy De APRN [address] [place] [address] Phone: tel: fax: [facility] [address] [address] Phone: tel: fax: Referral ID Status Reason Start Date Expiration Date Visits Re quested Visits Authorized [id number] Closed 12/27/2023 03/27/2024 1 1 Encounter Details Date Type Department Care Team (Late st Contact Info) Description 02/05/2024 8:00 PM EDT Hospital Encounter [facility] [address] [place] [address] Missy De, PLASTERING CONTRACTOR [address] [place] [address] URBANO (obstructive sleep apnea) Social History Tobacco Use Types Packs/Day Years [...] AM EDT documented as of this encounter Last Filed Vital Signs Vital Sign Reading Time Taken Comments Blood Pressure 142/76 02/05/2024 8:19 PM EDT Pulse 72 02/05/2024 8:19 PM EDT Temperature - - Respiratory Rate - - Oxygen Saturation 91% 02/05/2024 8:19 PM EDT Inhaled Oxygen Concentration - - Weight 68 kg (150 lb) 02/05/2024 8:19 PM EDT Height 161.3 cm (5' 3.5 ) 02/05/2024 8:19 PM EDT Body Mass Index 26.15 02/05/2024 8:19 PM EDT documented in this encounter Plan of Treatment Upcoming Encounters Date Type Department Care Team (Late st Contact Info) Description 03/25/2025 10:00 AM EST Office Visit [facility] PULMONARY & CRITICAL CARE MEDICINE [address] [place] [phone] 03/25/2025 10:30 AM EST Office Visit [facility] PULMONARY & CRITICAL CARE MEDICINE [address] [place] [address] Alyssa Blackmon APRN [address] [place] [address] documented as of this encounter Procedures Procedure Name Priority Date/Time Associated Diagnosis Comments NPSG Routine 02/06/2024 5:50 AM EDT URBANO (obstructive sleep apnea) documented in this encounter Results * NPSG (02/06/2024 5:50 AM EDT) Narrative SLEEP MEDICINE - 02/11/2024 12:46 PM EDT Table formatting from the original result was not included. Polysomnography Report Patient Name: Brie Low Interpreting Physician: Ryan Jackson MD Date of : 1970 Referring Provider: Missy De APRN Primary Care Provider: Luis Enrique Harman MD Date of Study: 02/06/24 Clinical Information 53-year-old female seen by Missy De APRN in the pulmonary clinic. She has a known history of COPD and is on oxygen. She is also on chronic narcotics for chronic pain. Because of somnolence and snoring a PSG was ordered. Methods used for Diagnostic Study: Subject was monitored in the sleep laboratory. Electroencephalogram (C3/M2, C4/M1, F3/M2, F4/M1, 01/M2, O2/M1), EOG, EKG, and EMG (chin and bilateral anterior tibialis) were monitored by surface electrodes and recorded utilizing a computerized polygraph. Airflow was recorded by a thermistor and pressure transducer at the nose and mouth and oxygen saturation was recorded by a pulse oximeter. Thoracic and abdominal respiratory movements were recorded on 2 separate channels by respiratory inductive plethysmograph. Sleep stages were scored by standard techniques and abnormal respiratory events, cardiac arrhythmias, and leg movements were analyzed. Polysomnography Results Sleep efficiency mildly reduced at 80% in large part due to a prolonged sleep latency of 41 minutes. All sleep stages were present The arousal index was elevated and these events appear to be primarily spontaneous in nature indicating nonspecific sleep fragmentation AHI was not elevated Patient slept exclusively in the nonsupine position throughout the night Oxygen saturations averaged 97% and did not drop below 88% though the patient was studied on 3 L O2 Mild snoring was noted The PLM index was mildly elevated though these events were generally not associated with independent arousals and were of unclear clinical significance Impression: Significant sleep apnea was not present Oxygen saturations did not drop below 89% on the patient's home prescription of 3 L O2 Mild snoring was present A significant limb movement disorder did not appear to be present Plan: Follow-up in the pulmonary clinic as before. Alternate possibilities for her somnolence should be considered and this would certainly include the effect of sedating medications Follow-up: Pulmonary clinic Electronically signed by: Ryan Jackson MD 02/11/24 12:42 EDT Missy De PLASTERING CONTRACTOR [facility] ORDERABLES Final Result SLEEP MEDICINE documented in this encounter Visit Diagnoses Diagnosis URBANO (obstructive sleep apnea) Obstructive sleep apnea (adult) (pediatric) documented in this encounter Care Teams Bottom Finisher Relationship Specialty Start Date End Date Luis Enrique Harman MD [address] [place] [address] PCP - General Internal Medicine 10/05/23 documented as of this encounter
--- OUTSIDE RECORDS SUMMARY | 2024-03-26 10:47 | XMS_ITS | Encounter Summary ---
[facility] [address] [place] [id number] Care Team Providers Care Automotive Finance Manager Name Role Phone Luis Enrique Harman MD Primary Care Provider [phone] Encounter Details Date Type Department Care Team (Late st Contact Info) Description 03/26/2024 9:47 AM EST Hospital Encounter [facility] PULMONARY & CRITICAL CARE MEDICINE [address] [place] [address] Social History Tobacco Use Types Packs/Day Years [...] Description 03/25/2025 10:00 AM EST Office Visit [facility] PULMONARY & CRITICAL CARE MEDICINE [address] [place] [address] 03/25/2025 10:30 AM EST Office Visit [facility] PULMONARY & CRITICAL CARE MEDICINE [address] [place] [address] Alyssa Blackmon, FRETTED STRING INSTRUMENT REPAIRER [address] [place] [address] documented as of this encounter Procedures Procedure Name Priority Date/Time Associated Diagnosis Comments XR CHEST PA AND LATERAL Routine 03/26/2024 9:47 AM EST Cough, unspecified type documented in this encounter Results * XR Chest PA & Lateral (03/26/2024 9:47 AM EST) Anatomical Region Laterality Modality Body, Chest N/A Radiographic Shonna ging 03/28/2024 11:4 9 AM EST Impressions 03/28/2024 11:51 AM EST Impression: No evidence of acute cardiopulmonary disease. Electronically Signed: Kervin Reyna MD 03/28/2024 11:51 AM EST Workstation ID: [id number] Narrative 03/28/2024 11:51 AM EST XR CHEST PA AND LATERAL Date of Exam: 03/26/2024 9:47 AM EST Indication: COUGH Comparison: Chest radiograph 10/18/2023. Findings: Cardiomediastinal silhouette is within normal limits. No focal consolidation or overt pulmonary edema. No pleural effusion or pneumothorax. Osseous structures are unchanged. Procedure Note Kervin Reyna MD - 03/28/2024 XR CHEST PA AND LATERAL Date of Exam: 03/26/2024 9:47 AM EST Indication: COUGH Comparison: Chest radiograph 10/18/2023. Findings: Cardiomediastinal silhouette is within normal limits. No focalconsolidation or overt pulmonary edema. No pleural effusion orpneumothorax. Osseous structures are unchanged. IMPRESSION: Impression: No evidence of acute cardiopulmonary disease. Electronically Signed: Kervin Reyna MD 03/28/2024 11:51 AM EST Workstation ID: [id number] Missy De FRETTED STRING INSTRUMENT REPAIRER IMG DIAGNOSTIC IMAGING ORDERA BLES Final Result documented in this encounter Visit Diagnoses Not on filedocumented in this encounter Care Teams Automotive Finance Manager Relationship Specialty Start Date End Date Luis Enrique Harman MD [address] [place] [address] PCP - General Internal Medicine 10/05/23 documented as of this encounter
--- OUTSIDE RECORDS SUMMARY | 2024-12-23 10:30 | XMS_ITS | Encounter Summary ---
[facility] [address] [place] [address] Care Team Providers Care Pearl Stringer Name Role Phone Luis Enrique Harman MD Primary Care Provider [phone] Reason for Visit * Reason Comments Chronic respiratory failure with hypoxia Follow UP Wheezing Fatigue Encounter Details Date Type Department Care Team (Late st Contact Info) Description 12/23/2024 10:30 AM EDT Office Visit [facility] PUL[facility]ICAL CARE MEDICINE [address] [place] [address] Alyssa Blackmon, SLITTING MACHINE OPERATOR HELPER [address] [id number] Chronic obstructive pulmonary disease, unspecified COPD type (Primary Dx); Chronic respiratory failure with hypoxia; URBANO (obstructive sleep apnea); Personal history of tobacco use Social History Tobacco Use Types Packs/Day Years Used Date Smoking Tobacco: Former Cigarettes 0.9 24 0 10/02/1999 - 10/02/2023 Smokeless Tobacco: Never Tobacco Cessation:Counseling Given: Not Answered Alcohol Use Standard Drinks/Week Comments Never 0 [...] Sign Reading Time Taken Comments Blood Pressure 102/60 12/23/2024 10:14 AM EDT Pulse 59 12/23/2024 10:14 AM EDT Temperature 36.4 C (97.5 F) 12/23/2024 10:14 AM EDT Respiratory Rate - - Oxygen Saturation 96% 12/23/2024 10: 14 AM EDT 3 Litters of O2, continous dose Inhaled Oxygen Concentration - - Weight 56.2 kg (123 lb 12.8 oz) 12/23/2024 10:14 AM EDT Height 161.3 cm (5' 3.5 ) 12/23/2024 10 :14 AM EDT Body Mass Index 21.59 12/23/2024 10:14 AM EDT documented in this encounter Progress Notes * Alyssa Blackmon, SLITTING MACHINE OPERATOR HELPER - 12/23/2024 10:30 AM EDT [facility] Pulmonary Follow up Chief Complaint Chronic respiratory failure with hypoxia (Follow UP), Wheezing, and Fatigue Subjective Brie Low presents to [facility] PULMONARY [facility] CRITICAL CARE MEDICINE for routine follow-up on her COPD with chronic respiratory failure. She had been routinely followed here inthe office by Dr. Mccloud. Recently she has noted she is lost quite a bit of weight. With the heat and humidity she is really not had much of an appetite. She also complains of generalized fatigue and lack of activity tolerance. She has been short of breath with activity and does wheeze frequently. Currently she is on Stiolto and Flovent as well as DuoNebs 2 times a day and azithromycin on Wednesdays and Fridays. She did quit smoking over a year ago but her still smokes in the home and she is exposed tosecondhand smoke. She had a spinal cord stimulator placed in June due to a history of spinal cord injury. Objective Vital Signs: BP 102/60 Pulse 59 Temp 97.5 ??F (36.4 ??C) (Temporal) Ht 161.3 cm (63.5 ) Wt 56.2 kg (123 lb 12.8 oz) SpO2 96% Comment: 3 Litters of O2, continous dose BMI 21.59 kg/m?? Immunization History Administered Date(s) Administered COVID-19 (MODERNA) 12YRS+ (SPIKEVAX) 02/09/2024 COVID-19 (MODERNA) 1st,2nd,3rd Dose Monovalent 09/04/2020, 10/03/2020 Fluzone (or Fluarix & Flulaval for VFC) >6mos 01/09/2018, 01/11/2019, 12/26/2019, 01/26/2023 Influenza Injectable Mdck Pf Quad 01/21/2022 Influenza Seasonal Injectable 02/17/2017, 02/09/2024 Influenza, Unspecified 02/09/2009 Pneumococcal Conjugate 20-Valent (PCV20) 01/26/2023 Shingrix 01/21/2022 Physical Exam Vitals reviewed. Constitutional: General: She is not in acute distress. Appearance: She is well-developed. HENT: Head: Normocephalic and atraumatic. Eyes: Pupils: Pupils are equal, round, and reactive to light. Cardiovascular: Rate and Rhythm: Normal rate and regular rhythm. Heart sounds: No murmur heard. Pulmonary: Effort: Pulmonary effort is normal. No respiratory distress. Breath sounds: No wheezing or rales. Comments: Decreased bilaterally Abdominal: General: Bowel sounds are normal. There is no distension. Palpations: Abdomen is soft. Musculoskeletal: General: Normal range of motion. Cervical back: Normal range of motion and neck supple. Skin: General: Skin is warm and dry. Findings: No erythema. Neurological: Mental Status: She is alert and oriented to person, place, and time. Psychiatric: Behavior: Behavior normal. Result Review : Assessment and Plan Problem List Items Addressed This Visit Pulmonary and Pneumonias COPD (chronic obstructive pulmonary disease) - Primary Relevant Medications predniSONE (DELTASONE) 10 MG tablet Chronic respiratory failure with hypoxia Relevant Medications predniSONE (DELTASONE) 10 MG tablet Sleep URBANO (obstructive sleep apnea) Tobacco Personal history of tobacco use Mrs. Low does have COPD with chronic respiratory failure. Unfortunately she struggled quite a bitover the summer. We did discuss different options including started on low-dose prednisone to help with her activity tolerance and even her appetite and weight loss. We discussed the risks and benefits today in the office not going to put her on prednisone 10 mg take daily until her next follow-up. Continue on her current regimen with her Stiolto and Flovent. She also has DuoNebs to use 2-4 timesa day as needed. Continue on her oxygen at 3 L continuously. She will be due her annual low-dose screening CT scan with history of tobacco use in July 2025. Her one this year showed evidence of old granulomatous but no spacious nodules. Follow-up full PFTs and a 6 and walk test on her next visit. She may benefit from an overnight pulse oximetry study on her 3 L to make sure she is not having nocturnal hypoxemia as well. Follow Up Return in about 3 months (around 03/25/2025). Patient was given instructions and counseling regarding her condition or for health maintenance advice. Please see specific information pulled into the AVS if appropriate. Moderate level of Medical Decision Making complexity based on 2 or more chronic stable illnesses and prescription drug management. Alyssa Blackmon APRN, ACNP [facility] Pulmonary Critical Care Medicine documented in this encounter Plan of Treatment Upcoming Encounters Date Type Department Care Team (Late st Contact Info) Description 03/25/2025 10:00 AM EST Office Visit [facility] PUL[facility]ITICAL CARE MEDICINE [address] [place] [address] 03/25/2025 10:30 AM EST Office Visit [facility] PULMON[facility] CRITICAL CARE MEDICINE [address] [place] [address] Alyssa Blackmon APRN [address] [place] [address] documented as of this encounter Visit Diagnoses Diagnosis Chronic obstructive pulmonary disease, unspecified COPD type- Primary Chronic respiratory failure with hypoxia URBANO (obstructive sleep apnea) Obstructive sleep apnea (adult) (pediatric) Personal history of tobacco use Personal history of tobacco use, presenting hazards to health documented in this encounter Care Teams Pearl Stringer Relationship Specialty Start Date End Date Luis Enrique Harman MD [address] [place] [address] PCP - General Internal Medicine 10/05/23 documented as of this encounter
--- OUTSIDE RECORDS SUMMARY | 2025-01-01 10:53 | XMS_ITS | Encounter Summary ---
[facility] [address] [place] [address] Care Team Providers Care Transaction Processor Name Role Phone Luis Enrique Harman MD Primary Care Provider [phone] Reason for Visit * Reason Comments Med Refill Encounter Details Date Type Department Care Team (Late st Contact Info) Description 12/30/2024 Refill [facility] PULMONARY & CRITICAL CARE MEDICINE [address] [place] [phone] Alyssa Blackmon, DANCE HALL HOST/HOSTESS [address] [place] [address] Social History Tobacco Use Types Packs/Day Years [...] Description 03/25/2025 10:00 AM EST Office Visit [facility] PULMONARY & CRITICAL CARE MEDICINE [address] [place] [phone] 03/25/2025 10:30 AM EST Office Visit [facility] PULMONARY & CRITICAL CARE MEDICINE [address] [place] [phone] Alyssa Blackmon, DANCE HALL HOST/HOSTESS [address] [place], [place] [id number] documented as of this encounter Visit Diagnoses Not on filedocumented in this encounter Care Teams Transaction Processor Relationship Specialty Start Date End Date Luis Enrique Harman MD [address] [place] [address] PCP - General Internal Medicine 10/05/23 documented as of this encounter
--- OUTSIDE RECORDS SUMMARY | 2025-01-01 10:53 | XMS_ITS | Clinical Summary ---
Author Organization [facility] Address [address] [id number] Care Team Providers Care Garment Turner Name Role Phone Angie Alfredo MD Primary Care Provider [phone] Allergies Active Allergy Reactions Criticality Noted Date Comments Nitrofurantoin Shortness of breath,Swelling,Hives,Unknown - Patient states they do not know rxn details High 03/02/2009 Medications ProAir RespiClick 108 (90 Base) MCG/ACT aerosol powder TAKE 2 PUFFS EVERY 6 HOURS NEEDED 06/10/19 22 Active cyclobenzaprine (Flexeril) 10 MG tablet Take 10 mg by mouth if needed. 08/16/19 22 Active loratadine (Claritin) 10 MG tablet Take 10 mg by mouth 1 (one) time each day. 09/01/19 22 Active lansoprazole (Prevacid) [address] capsule TAKE 1 CAPSULE BY MOUTH EVERY DAY BEFORE MEAL 08/26/19 22 Active promethazine (Phenergan) 12.5 MG tablet TAKE 1 TABLET BY MOUTH EVERY SIX HOURS NEEDED 08/30/19 22 Active Stiolto Respimat 2.5-2.5 MCG/ACT aerosol solution inhaler 2 PUFFS INHALATION ONCE A DAY 08/14/19 22 Active methadone (Dolophine) 10 MG tablet Take 12 tablets (120 mg) by mouth. Active hydroCHLOROthiazid e (HYDRODiuril) 50 MG tablet TAKE 1 TABLET BY MOUTH EVERY DAY IN THE MORNING FOR 30 DAYS 11/30/19 22 Active gabapentin (Neurontin) 800 MG tablet 02/17/20 22 Active sertraline (Zoloft) 50 MG tablet 02/22/20 22 Active ondansetron ODT (Zofran-ODT) [address] 1 TABLET EVERY 6 HOURS BY TRANSLINGUAL ROUTE FOR 2 DAYS. 08/03/19 Active cefdinir (Omnicef) 300 MG capsule TAKE 1 CAPSULE BY MOUTH EVERY 12 HOURS FOR 10 DAYS 08/03/19 Active methylPREDNISolone (Medrol Dospak) 4 MG tablets TAKE 6 TABLETS ON DAY 1 DIRECTED ON PACKAGE AND DECREASE BY 1 TAB EACH DAY FOR A TOTAL OF 6 DAYS 08/03/19 Active Hospital, Clinic, or Other Facility Administered Medication Ordered Dose Route Frequency Start Date End Date Status sodium chloride (PF) 0.9 % injection 10 mLIndications:Spasticity 10 mL IV As needed 01/25/2023 Active Active Problems Problem Noted Date Diagnosed Date Spasticity 10/18/2022 Spondylosis of cervical dede on without myelopathy or radiculopathy 07/26/2022 Myofascial pain 02/22/2022 Syrinx of spinal cord 05/23/2016 Neck pain 05/23/2016 Chiari malformation 04/04/2016 Immunizations Immunization Administration Dates Next Due Influenza, Unspecified 02/09/2009 Social History Tobacco Use Types Packs/Day Years Used Date Smoking Tobacco: Every Day Cigarettes Smokeless Tobacco: Never Tobacco Cessation:Ready to Q uit: Yes; Counseling Given: Yes Comments:Less than 1/2 ppd Alcohol Use Standard Drinks/Week Comments Not Currently 0 (1 standard drink = 0.6 oz pur e alcohol) Comments No Sex and Gender Information Value Date Recorded Sex Assigned at Not on file Legal Sex Female 8:49 PM EDT Gender Identity Not on file Sexual Orientation Not on file Last Filed Vital Signs Vital Sign Reading Time Taken Comments Blood Pressure 109/73 01/25/2023 10:05 AM EDT Pulse 87 01/25/2023 10:05 AM EDT Temperature 36.1 C (96.9 F) 01/25/2023 10:05 AM EDT Respiratory Rate 16 01/25/2023 10:05 AM EDT Oxygen Saturation 92% 08/09/2022 10:24 AM EDT Inhaled Oxygen Concentration - - Weight 72.6 kg (160 lb) 01/25/2023 10:05 AM EDT Height 162.6 cm (5' 4 ) 01/25/2023 10:05 AM EDT Body Mass Index 27.46 01/25/2023 10:05 AM EDT Plan of Treatment Health Maintenance Due Date Last Done Comments [facility]-Depression Screening 1971 [facility]-HIV Screening 1971 [facility]-Hepatitis C Screening 1971 [facility]-Infant/Child/Adol SDOH Screenings 1971 [facility]- SDOH Screenings 1989 [facility]-Adult SDOH Screenings 1989 [facility]-DTaP,Tdap,and Td Vaccines (1 - Tdap) 1990 [facility]-Hepatitis B Vaccines (1 of 3 - 19+ 3-dose series) 1990 [facility]-Pap Smear 10/12/2011 10/11/2008 [facility]-Cervical Cancer Screening 10/11/2013 [facility]-HPV/Cotest 10/11/2013 10/11/2008 CT Colonography 2016 Colonoscopy 2016 FIT-DNA 2016 FIT 2016 FOBT 2016 Sigmoidoscopy 2016 [facility]-Colorectal Cancer Screening 2016 [facility]-Breast Cancer Screening 2021 [facility]-Zoster Vaccines (2 of 2) 03/18/2022 01/21/2022 [id number] Vaccine (3 - 2023- season) 2024 10/03/2020, 09/04/2020 [facility]-Influenza Vaccine (#1) 01/13/202501/26, 01/21/2022, 12/26/2019, Additional history exists [facility]-Pneumococcal Vaccine: 50+ Years Completed 01/26/2023 [facility]-Obesity Intervention Completed 023, 01/25/2023, 11/18/2022, Additional history exists HPV Vaccines Aged Out No longer eligi ble based on patient's age to complete this topic [facility]-HIB Vaccines Aged Out No longer e ligible based on patient's age to complete this topic [facility]-Hepatitis A Vaccines Aged Out No longer eligible based on patient's age to complete this topic [facility]-IPV Vaccines Aged Out No longer e ligible based on patient's age to complete this topic [facility]-Rotavirus Vaccines Aged Out No lo nger eligible based on patient's age to complete this topic Procedures Procedure Name Priority Date/Time Associated Diagnosis Comments CYTO DATA CONVERSION Routine 10/11/2008 12:00 AM EDT from Last 3 Months or Most Recently Relevant to Health Maintenance Results * Cytology (10/11/2008 12:00 AM EDT) 10/11/2008 10/13/2008 11: 07 AM EDT Narrative SUNQUEST - 10/17/2008 9:20 AM EDT [facility] MR #: [id number] [facility] [address] [place], [place] [address] 1970 (Age: 38) FW Collect Date: 10/11/2008 00:00 Receipt Date: 10/13/2008 11:07 Page 1 DEPARTMENT OF PATHOLOGY AND LABORATORY MEDICINE CYTOPATHOLOGY REPORT Email: [email or web address] ATTENDING MD/Practitioner: Cody Robison MD Service: OB Location: 3OBT OTHER MD(S): Emily Quesada MD Reported: 10/17/2008 09:20 Collected: 10/11/2008 00:00 INTERPRETATION A. THIN PREP (CERVICAL/VAGINAL): NEGATIVE FOR INTRAEPITHELIAL LESION OR MALIGNANCY. FUNGAL ORGANISMS CONSISTENT WITH HORTENSIA SPECIES. SATISFACTORY FOR EVALUATION; ENDOCERVICAL/TRANSFORMATION ZONE COMPONENT ABSENT/INSUFFICIENT. Slide scanned and imaged by [employer] ThinPrep Imaging System with manual review of all selected morris. Electronically Signed Out By BRADFORD Michelle(ASCP) BRADFORD Tran(ASCP) BRADFORD Michelle(ASCP) Cervical cytology is a screening test primarily for squamous cancers and precursors and has associated false negative and positive results. New technologies such as liquid based sampling may decrease but will not eliminate all false negative results. Regular screening and follow-up of unexplained clinical signs and symptoms are recommended to minimize false negative results. Please see the ASCCP website (www.asccp.org) for followup recommendations. If HPV testing was requested, correlation with the results is suggested (please call Microbiology at [phone] for results). CLINICAL INFORMATION: Menstrual History: : First Trimester Date of Last Menstrual Period: {Not Provided} Other Clinical Conditions: Previous or suspected abnormality: reason, date and code not provided If ASCUS and > 24 years of age, HPV/DNA testing requested. SPECIMEN DESCRIPTION: A: THIN PREP (CERVICAL/VAGINAL) THIN PREP PROCESS CELLULAR ENHANCEMENT ICD: 112.1 CANDIDIASIS OF VULVA AND VAGINA 629.89 OTHER SPECIFIED DISORDERS OF FEMALE GENITAL ORGANS (ENDOSALPINGIOSIS) F: A; DX IMAGE [id number] SNOMED CODES: A; [id number] M-[id number] E4080 M-[id number] M- 19012 In cases where a pathologist has signed out the report, the service has been rendered in part by a resident. The signing pathologist has performed and is responsible for the reported pathologic evaluation. us Historical Provider LAB PATHOLOGY ORDERABLES Fin al Result SUNQUEST from Last 3 Months or Most Recently Relevant to Health Maintenance Insurance [employer] Care Teams Garment Turner Relationship Specialty Start Date End Date Anige Alfredo MD [address] [place], [place] [id number] PCP - General 09/25/20
--- OUTSIDE RECORDS SUMMARY | 2025-01-01 10:53 | XMS_ITS | Encounter Summary ---
Author Organization [facility] Address [address] [id number] Care Team Providers Care Staffing Analyst Name Role Phone Angie Alfredo MD Primary Care Provider [phone] Reason for Referral * Consultation (Routine) - Closed Specialty Diagnoses / Procedures Referred By Contac t Referred To Contact Neurosurgery Diagnoses Arnold-Chiari malformation (CMS/HCC) Angie Alfredo MD [address] [place] [address] Phone: tel: fax: Referral ID Status Reason Start Date Expiration Date V isits Requested Visits Authorized [id number] Closed Specialty Services Required 08/13/2021 02/12/2023 1 1 Encounter Details Date Type Department Care Team (Late st Contact Info) Description 08/13/2021 Community [facility] [address] [place] [address] Angie Alfredo MD [address] [place], [place] [id number] Arnold-Chiari malformation (CMS/HCC) (Primary Dx) Social History Tobacco Use Types Packs/Day Years Used Date Smoking Tobacco: Every Day Comments Unknown Sex and Gender Information Value Date Recorded Sex Assigned at Not on file Legal Sex Female 8:49 PM EDT Gender Identity Not on file Sexual Orientation Not on file documented as of this encounter Plan of Treatment Scheduled Referrals Name Type Priority Associated Diagnoses Orde r Schedule Ambulatory Referral to Neurosurgery Outpatient Referral Routine Arnold-Chiari malformation (CMS/HCC) Expected: 08/13/2021 (Approximate), Expires: 02/12/2023 documented as of this encounter Visit Diagnoses Diagnosis Arnold-Chiari malformation (CMS/HCC)- Primary Spina bifida with hydrocephalus, unspecified region documented in this encounter Care Teams Staffing Analyst Relationship Specialty Start Date End Date Angie Alfredo MD [address] [place] [address] PCP - General 09/25/20 documented as of this encounter
--- OUTSIDE RECORDS SUMMARY | 2025-01-01 10:53 | XMS_ITS | Encounter Summary ---
Author Organization [facility] Address [address] [place] [address] Care Team Providers Care Sailing Instructor Name Role Phone Luis Enrique Harman MD Primary Care Provider [phone] Encounter Details Date Type Department Care Team (Latest Contact Info) Description 12/23/2024 Travel Social History Tobacco Use Types Packs/Day Years [...] Description 03/25/2025 10:00 AM EST Office Visit [facility] [address] [place] [id number] 03/25/2025 10:30 AM EST Office Visit [facility] [address] [place] [phone] Alyssa Blackmon APRN [address] [place] [address] documented as of this encounter Visit Diagnoses Not on filedocumented in this encounter Care Teams Sailing Instructor Relationship Specialty Start Date End Date Luis Enrique Harman MD [address] [place] [address] PCP - General Internal Medicine 10/05/23 documented as of this encounter
--- OUTSIDE RECORDS SUMMARY | 2025-01-01 10:53 | XMS_ITS | Clinical Summary ---
Author Organization [facility] Address [address] [place] [address] Care Team Providers Care Tax Accounting Assistant Name Role Phone Luis Enrique Harman MD Primary Care Provider [phone] Allergies Active Allergy Reactions Criticality Noted Date Comments Nitrofurantoin Hives,Shortness Of Breath,Swelling,Unknown (See Comments) High 03/02/2009 Medications sertraline (ZOLOFT) 50 MG tablet Take 2 tablets by mouth Daily. Active hydroCHLOROthiaz chioma 50 MG tablet Take 1 tablet by mouth Every Morning. 10/16/19 24 Active loratadine (CLARITIN) 10 MG tablet Take 1 tablet by mouth Daily. Active gabapentin (NEURONTIN) 800 MG tablet Take 1 tablet 4 times a day by oral route. Active lansoprazole (PREVACID) 30 MG capsule TAKE ONE CAPSULE BY MOUTH ONCE DAILY PRIOR TO A MEAL Active methadone (DOLOPHINE) 10 MG tablet Take 12 tablets by mouth, Active promethazine (PHENERGAN) 12.5 MG tablet Take 1 tablet by mouth Every 6 (Six) Hours As Needed. Active Stiolto Respimat 2.5-2.5 MCG/ACT aerosol solution inhaler Inhale 2 puffs Daily. 4 g 11 01/24/20 24 Active sodium-potassium -magnesium sulfates (SUPREP) 17.5-3.13-1.6 GM/177ML solution oral solution Take 6 ounces twice a day by oral route as directed for 1 day, for colonoscopy prep. 03/14/20 24 Active ipratropium-albu terol (DUO-NEB) 0.5-2.5 mg/3 ml nebulizerIndicat ions:COPD with acute exacerbation Take 3 mL by nebulization 4 (Four) Times a Day As Needed for Wheezing. 120 mL 11 03/26/20 24 Active fluticasone (FLOVENT HFA) 110 MCG/ACT inhaler Inhale 2 puffs 2 (Two) Times a Day. 12 g 11 04/17/20 24 Active azithromycin (Zithromax) 500 MG tabletIndication s:COPD Exacerbation Suppression Take 1 tablet by mouth 3 (Three) Times a Week. Take 1 tablet every Monday, Monday and Monday. Indications: COPD Exacerbation Suppression 12 tablet 6 08/27/19 25 Active predniSONE (DELTASONE) 10 MG tablet Take 1 tablet by mouth Daily. 90 tablet 12/24/19 25 Active amoxicillin-clav ulanate (AUGMENTIN) 875-125 MG per tablet Take 1 tablet by mouth 2 (Two) Times a Day. 14 tablet 08/27/19 25 025 Discontin ued(*Ther apy completed ) predniSONE (DELTASONE) 10 MG tablet Take 4 tabs daily x 3 days, then take 3 tabs daily x 3 days, then take 2 tabs daily x 3 days, then take 1 tab daily x 3 days 30 tablet 08/27/19 25 025 Discontin ued(*Ther apy completed ) Active Problems Problem Noted Date Diagnosed Date GERD 12/27/2023 URBANO (obstructive sleep apnea) 12/27/2023 COPD (chronic obstructive pulmonary disease) 09/2023 Personal history of tobacco use 10/18/2023 Chronic respiratory failure with hypoxia 024 Resolved Problems Problem Noted Date Diagnosed Date Resolved Date COPD with acute exacerbation 03/26/2024 12/23/2024 Encounters Date Type Department Care Team Description 12/30/2024 Refill [facility] [address] [place] [address] Alyssa Blackmon APRN 12/23/2024 10:30 AM EDT Office Visit [facility] [address] [place] [address] Alyssa Blackmon, CLAUDY Chronic obstructive pulmonary disease, unspecified COPD type (Primary Dx); Chronic respiratory failure with hypoxia; URBANO (obstructive sleep apnea); Personal history of tobacco use 12/23/2024 Travel from Last 3 Months Immunizations Immunization Administration Dates Next Due Fluzone (or Fluarix & Flulav al for VFC) >6mos 01/26/2023,12/26/2019,01/11/2019,2017 Influenza Injectable Mdck Pf Quad 01/21/2022 Influenza Seasonal Injectable 02/09/2024, 017 Influenza, Unspecified 02/09/2009 Pneumococcal Conjugate 20-Va lent (PCV20) 01/26/2023 Shingrix 01/21/2022 Family History Medical History Relation Name Comments Emphysema Father Manuel Fisher Hypertension Father Manuel Fisher Cancer Mother Madelin Muller ( mom) z lung Emphysema Mother Madelin Muller ( mom) z Relation Name Status Comments Father Manuel Fisher Alive Mother Madelin Muller ( mom) z Alive Social History Tobacco Use Types Packs/Day Years [...] Orientation Straight 08/22/2024 7: 53 AM EDT Last Filed Vital Signs Vital Sign Reading [...] Mass Index 21.59 12/23/2024 10:14 AM EDT Plan of Treatment Upcoming Encounters Date Type Department Care Team (Late st Contact Info) Description 03/25/2025 10:00 AM EST Office Visit [facility] [address] [place] [address] 03/25/2025 10:30 AM EST Office Visit [facility] [address] [place] [address] Alyssa Blackmon, ACOUSTICAL TILE DRILL PRESS OPERATOR [address] [place] [address] Health Maintenance Due Date Last Done Comments Annual Gynecologic Pelvic an d Breast Exam 1971 TDAP/TD VACCINES (1 - Tdap) 1990 PAP SMEAR 1992 MAMMOGRAM 2011 COLOGUARD 2016 COLON CANCER SCREENING 5 YEA R SIGMOIDOSCOPY [address] COLONOGRAPHY 2016 FECAL OCCULT BLOOD TEST 2016 FIT Testing (1 year) 2016 ZOSTER VACCINE (2 of 2) 03/18/2022 01/21/2022 ANNUAL PHYSICAL 10/18/2023 HEPATITIS C SCREENING 10/18/2023 INFLUENZA VACCINE 02/12/2025 02/09/2024, , 01/21/2022, Additional history exists LUNG CANCER SCREENING 08/12/2025 08/12/2024 COLONOSCOPY 05/15/2030 05/15/2020, 1007/2018, 05/15/2018, Additional history exists COLORECTAL CANCER SCREENING 05/15/2030 Pneumococcal Vaccine 50+ Completed 01/26/2023 COVID-19 Vaccine Completed 02/09/2024, , 09/04/2020 Procedures Procedure Name Priority Date/Time Associated Diagnosis Comments CT CHEST LOW DOSE WO CANCER SCREENING Routine 08/12/2024 1:39 PM EDT Personal history of tobacco use from Last 3 Months or Most Recently Relevant to Health Maintenance Results * CT Chest Low Dose Cancer Screening WO (08/12/2024 1:39 PM EDT) Anatomical Region Laterality Modality Chest Computed Tomogra phy 08/15/2024 3:22 PM EDT Impressions 08/15/2024 6:25 PM EDT Impression: Evidence of old granulomatous disease. No suspicious pulmonary nodule or other evidence of active chest pathology is seen. Recommendation: Continue annual screening with LDCT Lung Rads Assessment: Lung-RADS L1 - Negative, <1% chance of malignancy. Electronically Signed: Kevin Manuel MD 08/15/2024 6:25 PM EDT Workstation ID: [id number] Narrative 08/15/2024 6:[address] CHEST LOW DOSE CANCER SCREENING WO Date of Exam: 08/12/2024 1:28 PM EDT Indication: . Personal history of tobacco use Comparison: Outside low-dose chest CT scan of 06/16/2023 Technique: Low dose CT imaging of the chest was performed without intravenous contrast enhancement. Automated exposure control and iterative reconstruction methods were used. Findings: Prior study report is not currently available. Patient has history of COPD Right lung: A few scattered granulomatous calcifications are seen in the right lung, and there are calcified right hilar lymph nodes. No suspicious noncalcified right lung nodule, focal groundglass lesion or other evidence of active disease is seen. Left lung: Thin linear scarring in the inferior lingula is stable from prior exam. A few granulomatous calcifications are seen but no noncalcified pulmonary nodule or other evidence of active left lung disease is seen. There is no pleural effusion. The central airways appear to be normally patent. There is very patient's dorsal midline neurostimulator electrodes. No mediastinal, hilar, axillary, or lower cervical lymphadenopathy is appreciated. There is no pericardial effusion. No coronary artery calcification is appreciated. Images of the upper abdomen show a minimal hiatal hernia, mild fatty liver change of previous cholecystectomy. Bony structures appear to be intact. Procedure Note Kevin Manuel MD - 08/15/2024 CT CHEST LOW DOSE CANCER SCREENING WO Date of Exam: 08/12/2024 1:28 PM EDT Indication: . Personal history of tobacco use Comparison: Outside low-dose chest CT scan of 06/16/2023 Technique: Low dose CT imaging of the chest was performed withoutintravenous contrast enhancement. Automated exposure control anditerative reconstruction methods were used. Findings: Prior study report is not currently available. Patient has history ofCOPD Right lung: A few scattered granulomatous calcifications are seen in theright lung, and there are calcified right hilar lymph nodes. No suspiciousnoncalcified right lung nodule, focal groundglass lesion or other evidenceof active disease is seen. Left lung: Thin linear scarring in the inferior lingula is stable fromprior exam. A few granulomatous calcifications are seen but nononcalcified pulmonary nodule or other evidence of active left lungdisease is seen. There is no pleural effusion. The central airways appear to be normallypatent. There is very patient's dorsal midline neurostimulator electrodes.No mediastinal, hilar, axillary, or lower cervical lymphadenopathy isappreciated. There is no pericardial effusion. No coronary artery calcification is appreciated. Images of the upper abdomen show a minimal hiatal hernia, mild fattyliver change of previous cholecystectomy. Bony structures appear to beintact. IMPRESSION: Impression: Evidence of old granulomatous disease. No suspicious pulmonary nodule orother evidence of active chest pathology is seen. Recommendation: Continue annual screening with LDCT Lung Rads Assessment: Lung-RADS L1 - Negative, <1% chance of malignancy. Electronically Signed: Kevin Manuel MD 08/15/2024 6:25 PM EDT Workstation ID: [id number] us Alida V. Case DO IMG CT ORDERABLES Final Resul t from Last 3 Months or Most Recently Relevant to Health Maintenance Insurance [facility] MEDICAID Care Teams Tax Accounting Assistant Relationship Specialty Start Date End Date Luis Enrique Harman MD [facility] [place] [address] PCP - General Internal Medicine 10/05/23
[2025-01-01 11:13] VITALS: BP 97/52; PULSE 57; RESP 14; O2SAT 98; BMI 21.2
--- NOTE | 2025-01-01 11:19 | EXP.PAIN.SOA ---
[facility] Disclaimer: The information contained in this section may have been updated after the patient was seen, as this information can be updated by other users. Medical History Spinal enthesopathy of cervical region Chiari malformation GERD (gastroesophageal reflux disease) COPD (chronic obstructive pulmonary disease) Pulmonary emphysema HTN (hypertension) Syringomyelia Spasmodic torticollis History of substance abuse Anxiety Depression HLD (hyperlipidemia) Surgical History History of lithotripsy History of neck surgery H/O right knee surgery Hx of cholecystectomy Hx of colonoscopy Family History Other COPD (chronic obstructive pulmonary disease) Colon cancer Heart attack Hypertension Ovary cancer Social History Smoking Status: Current some day smoker alcohol intake: former substance use type: former substance user current occupational status: other Travel in the last 8 weeks?: None PM Subjective & Objective Subjective Subjective:: Patient is a pleasant 54-year-old female who presents today for worsening neck pain. She rates her pain a 7 out of 10. Patient does state that she felt like her [employer] stimulator could use additional reprogramming. She denies any new falls or injuries. She is still using her compounded cream. Her Ghanshyam has been reviewed and is appropriate. Review of Systems: General: No recent weight changes, no fever, no sleep disturbances Respiratory: No cough, no shortness of air, no recurring pulmonary infections Cardiovascular/peripheral vascular: No chest pain, no palpitations, no edema, no shortness of breath Gastrointestinal: No new onset incontinence, normal bowel movements reported Genitourinary: No new onset incontinence Musculoskeletal: Neck pain Psychiatric: [Normal mood/affect] Neurological: [Denies weakness in extremities], [denies balance issues] Pain at rest (0-10 scale): 7 Objective Objective:: Physical Exam: General: Alert and oriented x3, no acute distress, pleasant and cooperative Lungs: Respirations even and unlabored, symmetrical chest expansion Eyes: PERRL Musculoskeletal: Flexion and extension of cervical [spine] somewhat guarded secondary to pain, [antalgic gait noted] Neurological: Speech clear, no gross sensory deficit Has patient had previous pain injection?: No Conservative treatment options previously tried: Home exercise plan Length of treatment: Longer than 12 weeks Meds Home Medications and Allergies Home Medications ?Medication ?Instructions ?Recorded ?Confirmed ?Type cyclobenzaprine 10 mg tablet 10 mg PO TID PRN Pain 12/28/23 01/01/25 History fluticasone propionate 110 2 puff inhalation BID Breathing 12/28/23 01/01/25 History mcg/actuation HFA aerosol inhaler Problems gabapentin 800 mg tablet 800 mg PO QID Pain 12/28/23 01/01/25 History hydrochlorothiazide 50 mg tablet 50 mg PO DAILY Fluid 12/28/23 01/01/25 History lansoprazole 30 mg capsule,delayed 30 mg PO DAILY . 12/28/23 01/01/25 History release loratadine 10 mg tablet 10 mg PO DAILY ALLERGIES 12/28/23 01/01/25 History methadone 5 mg tablet 5 mg PO DAILY 12/28/23 01/01/25 History sertraline 50 mg tablet 50 mg PO DAILY MOOD 12/28/23 01/01/25 History tiotropium 2.5 mcg-olodaterol 2.5 1 inh inhalation DIRECTED 12/28/23 01/01/25 History mcg/actuation mist for inhalation Breathing Problems (Stiolto Respimat) albuterol sulfate 1.25 mg/3 mL 1.25 mg inhalation QID PRN Asthma 07/02/24 01/01/25 History solution for nebulization potassium chloride 20 mEq 20 meq PO DAILY 07/02/24 01/01/25 History tablet,extended release(part/cryst) New Prescriptions to Start Prescriptions: Allergies Allergy/AdvReac Type Severity Reaction Status Date / Time nitrofurantoin Allergy Hives Verified 08/30/24 11:40 Assessment and Plan *Assessment and plan (1) Degenerative disc disease, cervical: Status: Acute Category: Medical Code(s): M50.30 - Other cervical disc degeneration, unspecified cervical region (2) Cervical radiculopathy: Status: Acute Category: Medical Code(s): M54.12 - Radiculopathy, cervical region Plan Patient was able to meet with [employer] sales representative and get additional reprogramming that did provide significant relief. Patient will follow-up with our office in 1 month for reevaluation of symptoms and plan of care. Patient has been instructed to contact the clinic with any concerns before the next appointment. Dr. Villanueva has reviewed this note and agrees with this plan of care. This note was dictated using voice recognition software and make contain errors or omissions. All injections are used with Lidocaine, Bupivacaine and dexamethasone. Occasionally urine drug screen is needed to verify patient's compliance with our office pain contract. This is ordered based off specific treatments related to chronic pain with the potential to abuse certain medications.
== END 2025-01-01 23:59 | disposition home or self-care (01) ==
LOC: SC.PAIN 10:46
PROVIDERS: PCP Pediatrics; Visit Provider Nurse Practitioner Family
DX: M54.12 Radiculopathy, cervical region (principal)
CPT/HCPCS: 99212; G0463